=== PATIENT | female | born 1955 | race Caucasian/White ===

== ENCOUNTER 2022-02-26 14:28 | Outpatient (CLI) | payer MEDICARE, SELFPAY ==
--- NOTE | ~2022-02-26 | XR_ITS ---
EXAM: XR hip RT 2V w AP pelvis HISTORY: M25.559 - PAIN RIGHT HIPX 3 YRS, NO KNOWN INJURY COMPARISON: None available FINDINGS: Decreased mineralization. Severe lower lumbar degenerative change. Possible injection gran ulomas project over the right abdomen. Left pelvic surgical clips. Multiple soft tissue anchors proje ct over the lower abdomen. Severe superior joint space narrowing and subchondral sclerosis. Mild rosa ral head remodeling. Hip joint osteophytosis. Similar but moderate changes in the left hip. IMPRESSION: Severe right hip osteoarthritis. Reviewed, dictated and finalized at location K.
--- NOTE | ~2022-02-26 | XR_ITS ---
EXAMINATION: XR knee RT 3V DATE: 02/26/2022 14:53 INDICATION: Right knee pain. TECHNIQUE: 3 views of right knee were obtained. COMPARISON: None. FINDINGS: Bone alignment is normal. No fracture. There is mild tricompartmental osteoarthritis. No kn ee joint effusion. IMPRESSION: 1. Mild right knee osteoarthritis. Reviewed, dictated and finalized at location A.
== END 2022-02-26 14:29 | disposition home or self-care (01) ==
PROVIDERS: PCP Family Medicine; Visit Provider Family Medicine
DX: M17.11 Unilateral primary osteoarthritis, right knee (principal); M16.11 Unilateral primary osteoarthritis, right hip
CPT/HCPCS: 73502; 73562

== ENCOUNTER 2022-04-26 11:39 | Outpatient (CLI) | payer MEDICARE, MEDICAID, SELFPAY ==
--- NOTE | ~2022-04-26 | US_ITS ---
EXAMINATION: US carotid duplex BI DATE: 04/26/2022 12:20 INDICATION: Bilateral carotid stenosis TECHNIQUE: Grayscale, color Doppler, and pulsed Doppler images of the cervical carotid arteries were obtained. The degree of vessel stenosis is placed in one of the following categories: normal, <50%, 5 0-69%, >=70% but less than near-occlusion, near-occlusion, or total occlusion. Note that percent sten osis relative to normal distal artery lumen diameter is indirectly measured from velocity measurement s as described by David, et al. Radiology 2003; 229:340-346. Notes: Normal: Peak systolic velocity <125 centimeters/sec and no plaque <50%. Peak systolic velocity <125 ( EDV <40; ICA/CCA PSV ratio <2.0; used these factors only a tandem lesions or low cardiac output or co ntralateral disease) 50-69 %: PSV 125-230 (EDV 40-100; ratio 2-4) >= 70% but less than near occlusion: PSV greater than 230 (EDV > 100; ratio> 4.0) Near Occlusion: PSV that is variable; markedly narrowed lumen Occlusion: Absent flow on color/spectral Doppler and no lumen on clifford scale. COMPARISON: None. FINDINGS: RIGHT: The right common carotid artery (CCA) peak systolic velocity (PSV) is 63 cm/s. No flow identified in the right internal carotid artery. The external carotid artery (ECA) PSV is 197 cm/s. There is antegr chad flow in the right vertebral artery. LEFT: The left CCA PSV is 91 cm/s. The left ICA PSV is 120 cm/s. The left ICA EDV is 36 cm/s. The left ICA/ CCA PSV ratio is 1.3. The ECA PSV is 134 cm/s. There is antegrade flow in the left vertebral artery. IMPRESSION: 1. No identifiable flow in the right internal carotid artery, consistent with occlusion. 2. Less than 50% stenosis in the left internal carotid artery by sonographic criteria. Reviewed, dictated and finalized at location B. IMPRESSION: 1. No identifiable flow in the right internal carotid artery, consistent with o cclusion. 2. Less than 50% stenosis in the left internal carotid artery by sonographic cr iteria.
== END 2022-04-26 11:40 | disposition home or self-care (01) ==
PROVIDERS: PCP Family Medicine; Visit Provider Internal Medicine Cardiovascular Disease
DX: I65.23 Occlusion and stenosis of bilateral carotid arteries (principal)
CPT/HCPCS: 93880

== ENCOUNTER 2022-06-03 15:20 | Outpatient (CLI) | payer MEDICARE, MEDICAID, SELFPAY ==
--- NOTE | ~2022-06-03 | MM_ITS ---
EXAMINATION: MM screening judith BI w veronika HISTORY: Screening TECHNIQUE: Craniocaudal and mediolateral oblique 3-D tomosynthesis images were obtained and synthetic 2-D images were generated. CAD analysis was submitted and interpreted. COMPARISON: No prior mammogram is available for comparison at this institution. BREAST PARENCHYMAL COMPOSITION: There are scattered areas of fibroglandular density. FINDINGS: There is no evidence of suspicious mass, calcification, or architectural distortion to sugg est malignancy in either breast. There has been no suspicious interval change. IMPRESSION: 1. No mammographic evidence of malignancy. 2. Recommend routine screening mammography in one year. BI-RADS Category 1: Negative Reviewed, dictated and finalized at location A.
== END 2022-06-03 15:21 | disposition home or self-care (01) ==
LOC: ANHIMG 15:22
PROVIDERS: PCP Family Medicine; Visit Provider Family Medicine
DX: Z12.31 Encounter for screening mammogram for malignant neoplasm of breast (principal)
CPT/HCPCS: 77063; 77067

== ENCOUNTER 2022-07-02 14:09 | Outpatient (CLI) | payer MEDICARE, MEDICAID, SELFPAY ==
--- NOTE | ~2022-07-02 | XR_ITS ---
EXAMINATION: XR lumbar spine 2-3V DATE: 07/02/2022 14:29 INDICATION: Low back pain TECHNIQUE: Anteroposterior and lateral views of the lumbar spine, and cone-down lateral view of the l umbosacral junction were obtained. COMPARISON: None. FINDINGS: There is severe loss of intervertebral disc space height throughout the lumbar spine. Bone alignment is normal. There is no fracture. The vertebral body heights are maintained. Degenerative os teophytes project from the anterior endplates of multiple vertebral bodies. There is severe facet ost eoarthritis of the lower lumbar spine. Changes of mesh ventral hernia repair are noted. Surgical clip s and a surgical anastomosis are noted in the left pelvis. There is advanced osteoarthritis of the ri ght hip and moderate osteoarthritis of the left hip. IMPRESSION: 1. Severe lumbar spondylosis. Reviewed, dictated and finalized at location A.
== END 2022-07-02 14:10 | disposition home or self-care (01) ==
LOC: ANHIMG 14:13
PROVIDERS: PCP Family Medicine; Visit Provider Physician Assistant
DX: M47.896 Other spondylosis, lumbar region (principal)
CPT/HCPCS: 72100

== ENCOUNTER 2022-07-08 10:41 | Outpatient (CLI) | payer MEDICARE, MEDICAID, SELFPAY ==
[2022-07-08 11:20] LABS: Basophils Percent Auto 0.5 % (0.2-1.2); Eosinophils Absolute Auto 0.3 K/mm3 (0-0.3); Eosinophils Percent Auto 3.2 % (0-4.4); Hematocrit 39.6 % (37.0-47.0); Hemoglobin 12.6 g/dL (12.0-15.0); Immature Granulocyte Absolute 0.02 K/mm3 (0.00-0.031); Immature Granulocyte Percent A 0.2 % (0-0.5); Lymphocytes Absolute Auto 2.51 K/mm3 (0.9-3.2); Lymphocytes Percent Auto 30.6 % (18.3-44.2); Mean Corpuscular HGB Conc 31.8 g/dl (32-36); Mean Corpuscular Hemoglobin 31.1 pg (26-34); Mean Corpuscular Volume 97.8 fl (80-100); Mean Platelet Volume 8.6 fl (7.4-10.4); Monocytes Absolute Auto 0.5 K/mm3 (0.1-0.6); Monocytes Percent Auto 5.7 % (2.6-8.5); Neutrophils Absolute Auto 4.9 K/mm3 (1.3-6.7); Neutrophils Percent Auto 59.8 % (45.5-73.1); Platelet Count Result 303 k/mm3 (150-375); Red Blood Count 4.05 M/mm3 (4.2-5.4); Red Cell Distribution Width 13.2 % (11.5-14.5); White Blood Count 8.2 K/mm3 (4.5-10.0)
[2022-07-08 11:39] LABS: Alanine Aminotransferase 15 U/L (6-35); Albumin Level 4.2 g/dL (3.5-5.1); Alkaline Phosphatase 126 U/L (38-126); Anion Gap 10 mmol/L (8-16); Aspartate Amino Transferase 25 U/L (14-36); Bilirubin,Total 0.5 mg/dL (0.2-1.3); Blood Urea Nitrogen 15 mg/dL (7-17); Calcium 9.1 mg/dL (8.4-10.2); Carbon Dioxide 22 mmol/L (22-30); Chloride 102 mmol/L (98-107); Cholesterol 147 mg/dL (0-200); Estimated Glomerular Filt Rate > 60; Glucose 85 mg/dL (65-110); HDL Direct 66 mg/dL; Potassium 4.4 mmol/L (3.4-5.0); Sodium 134 mmol/L (137-145); Triglycerides 96 mg/dL (<150)
[2022-07-08 11:50] LABS: LDL Cholesterol Direct 42 mg/dL
== END 2022-07-08 10:42 | disposition home or self-care (01) ==
PROVIDERS: PCP Family Medicine; Visit Provider Physician Assistant
DX: E78.5 Hyperlipidemia, unspecified (principal); I10 Essential (primary) hypertension; R73.09 Other abnormal glucose; Z68.41 Body mass index [BMI] 40.0-44.9, adult
CPT/HCPCS: 36415; 80053; 80061; 85025

== ENCOUNTER 2022-08-13 00:17 | Day surgery (SDC) | payer MEDICARE, MEDICAID, SELFPAY ==
[2022-07-31 15:00] VITALS: BMI 43.1
[2022-08-13 10:17] VITALS: BP 112/66; PULSE 77; RESP 20; TEMP 36.3; O2SAT 98; BMI 42.9
[2022-08-13] MEDS: LACTATED RINGERS 1,000 ML 150 ML IV CONT (10:51)
--- NOTE | 2022-08-13 11:02 | WPDANESEPPF ---
Anes - Initial Pre Proc Eval Procedure: Operation Date: 08/13/22 11:00 Proposed Procedures p Screening Colonoscopy - Sunny Barnett MD Date/Time: 08/13/22 11:02 Surgeon: Sunny Barnett MD Pre Op Diagnosis: hx colon polyps Patient Data Age: 67 Gender: F Height: 1.57 m Weight: 106.4 kg Last Vital Signs Temp 97.4 F L 08/13/22 10:17 Pulse 77 08/13/22 10:17 Resp 20 08/13/22 10:17 BP 112/66 08/13/22 10:17 Pulse Ox 98 08/13/22 10:17 O2 Del Method Room Air 08/13/22 10:17 Allergies Allergy/AdvReac Type Severity Reaction Status Date / Time morphine AdvReac Intermediate Rapid Verified 08/13/22 10:16 heart rate Home Medications Medication Instructions Recorded Confirmed Type atorvastatin 80 mg tablet 80 mg PO DAILY #90 tabs 08/16/21 08/13/22 Rx bupropion HCl 150 mg 24 hr tablet, 150 mg PO QAM #90 tabs 08/16/21 08/13/22 Rx extended release cetirizine 10 mg tablet (All Day 10 mg PO DAILY PRN Allergy Symptoms 08/16/21 08/13/22 History Allergy (cetirizine)) lisinopril 20 mg tablet 20 mg PO DAILY #90 tabs 08/16/21 08/13/22 Rx albuterol sulfate 90 mcg/actuation 2 inh inhalation Q4H PRN shortness 02/26/22 08/13/22 Rx aerosol inhaler of breath or wheezing 3 months #8.5 grams clopidogrel 75 mg tablet 75 mg PO DAILY #90 tabs 02/26/22 08/13/22 Rx ipratropium 0.5 mg-albuterol 3 mg 3 ml inhalation Q6H PRN shortness 02/26/22 08/13/22 Rx (2.5 mg base)/3 mL nebulization of breath #180 mL soln sertraline 100 mg tablet 100 mg PO DAILY #90 tabs 02/26/22 08/13/22 Rx tramadol 50 mg tablet 50 mg PO Q6H PRN pain #60 tabs 07/02/22 08/13/22 Rx umeclidinium 62.5 mcg-vilanterol See Rx Instructions .Route 07/12/22 08/13/22 Rx 25 mcg/actuation powdr for .COMPLEX #180 ea inhalation (Anoro Ellipta) Patient hx anesthesia problems: none Family hx anesthesia problems: none Results Review: All pre-operative results and documents have been reviewed as part of the pre-operative evaluation. [facility] Past Medical History Medical History Alcohol abuse Benign essential HTN Chronic pain Colon polyps COPD (chronic obstructive pulmonary disease) Diverticular disease of intestine with perforation and abscess LIAN (generalized anxiety disorder) Hyperlipidemia IBS (irritable bowel syndrome) Pollen allergies Tobacco use Surgical History Surgical History H/O Spinal surgery History of cholecystectomy History of colon resection at age 52 History of lumpectomy of both breasts x2 Family History Family History Father Depression Mother Depression Skin cancer (melanoma) Sibling Depression Social History Social History (Updated 07/02/22 @ 13:15 by Stephanie Boyd) Social History: Single Smoking packs per day: 0.5 Smoking cigarettes per day: 10.0 Years smoked: 44 Smoking pack-years: 22.00 Smoking status: Current every day smoker Tobacco type: cigarettes Second hand tobacco smoke exposure: Yes Smoking end date: 11/17/21 Additional smoking assessment comments: Pt still smokes. Alcohol intake: current Drinks per week: 7 Alcohol use details: occasionally Substance use: never Substance use type: does not use Living arrangements: alone Gender identity (if verbalized by the patient): Female Sexual Orientation (if Verbalized by the Patient): Straight or Heterosexual Spiritual care concerns: No Anes - Eval Final PreProcedure Day of Procedure 08/13/22 11:02 Patient weight: morbidly obese Heart: regular rate and rhythm Lungs: clear to auscultation Airway: Mallampati scale class III Neurological: alert and oriented Last oral intake: >/= 8 hours ASA classification: IV Emergent: no Anesthetic plan: proceed Anesthesia type and monitoring: general GIVS and standard monitoring Results Review: All pre-operative re
--- NOTE | 2022-08-13 11:10 | PM.HPGS ---
History of Present Illness History of Present Illness Consent: Risks, benefits, and alternatives have been discussed and questions answered. Patient agrees to proceed with procedure. Chief complaint: hx colon polyps Narrative: Nicolasa Campo is a 67 year old female with colon polyps, last colonoscopy 5 years ago Review of Systems Constitutional: Constitutional: Denies headache(s) and Denies weakness Eyes: Eyes: Denies blurry vision ENT: Reports Normal hearing present, Denies headache(s) and Denies neck pain Cardiovascular: Cardiovascular: Denies chest pain and Denies dyspnea Respiratory: Respiratory: Denies dyspnea Gastrointestinal: Gastrointestinal: Reports no additional gastrointestinal complaints Genitourinary: Genitourinary: Denies dysuria Musculoskeletal: Musculoskeletal: Denies neck pain Integumentary/Breasts: Skin/Breast: Denies dry skin Neurologic: Reports Normal hearing present, Denies headache(s) and Denies weakness Psychiatric: Psychiatric: Denies anxiety Endocrine: Endocrine: Denies change in body appearance Hematologic/Lymphatic: Hematologic/Lymphatic: Denies easy bleeding Allergic/Immunologic: Allergic/Immunologic: Denies urticaria PMFSH Past Medical History Medical History Alcohol abuse Benign essential HTN Chronic pain Colon polyps COPD (chronic obstructive pulmonary disease) Diverticular disease of intestine with perforation and abscess LIAN (generalized anxiety disorder) Hyperlipidemia IBS (irritable bowel syndrome) Pollen allergies Tobacco use Surgical History Surgical History H/O Spinal surgery History of cholecystectomy History of colon resection at age 52 History of lumpectomy of both breasts x2 Family History Family History Father Depression Mother Depression Skin cancer (melanoma) Sibling Depression Social History Social History (Updated 07/02/22 @ 13:15 by Stephanie Boyd) Social History: Single Smoking packs per day: 0.5 Smoking cigarettes per day: 10.0 Years smoked: 44 Smoking pack-years: 22.00 Smoking status: Current every day smoker Tobacco type: cigarettes Second hand tobacco smoke exposure: Yes Smoking end date: 11/17/21 Additional smoking assessment comments: Pt still smokes. Alcohol intake: current Drinks per week: 7 Alcohol use details: occasionally Substance use: never Substance use type: does not use Living arrangements: alone Gender identity (if verbalized by the patient): Female Sexual Orientation (if Verbalized by the Patient): Straight or Heterosexual Spiritual care concerns: No Meds Home Medications and Allergies Home Medications Medication Instructions Recorded Confirmed Type atorvastatin 80 mg tablet 80 mg PO DAILY #90 tabs 08/16/21 08/13/22 Rx bupropion HCl 150 mg 24 hr tablet, 150 mg PO QAM #90 tabs 08/16/21 08/13/22 Rx extended release cetirizine 10 mg tablet (All Day 10 mg PO DAILY PRN Allergy Symptoms 08/16/21 08/13/22 History Allergy (cetirizine)) lisinopril 20 mg tablet 20 mg PO DAILY #90 tabs 08/16/21 08/13/22 Rx albuterol sulfate 90 mcg/actuation 2 inh inhalation Q4H PRN shortness 02/26/22 08/13/22 Rx aerosol inhaler of breath or wheezing 3 months #8.5 grams clopidogrel 75 mg tablet 75 mg PO DAILY #90 tabs 02/26/22 08/13/22 Rx ipratropium 0.5 mg-albuterol 3 mg 3 ml inhalation Q6H PRN shortness 02/26/22 08/13/22 Rx (2.5 mg base)/3 mL nebulization of breath #180 mL soln sertraline 100 mg tablet 100 mg PO DAILY #90 tabs 02/26/22 08/13/22 Rx tramadol 50 mg tablet 50 mg PO Q6H PRN pain #60 tabs 07/02/22 08/13/22 Rx umeclidinium 62.5 mcg-vilanterol See Rx Instructions .Route 07/12/22 08/13/22 Rx 25 mcg/actuation powdr for .COMPLEX #180 ea inhalation (Anoro Ellipta) Allergies Allergy/AdvReac Type Severity Reaction Status Date / Time morphine
[2022-08-13 11:32] VITALS: BP 103/52; PULSE 66; RESP 26; O2SAT 100
[2022-08-13 11:42] VITALS: BP 128/56; PULSE 68; RESP 21; O2SAT 100
[2022-08-13 11:52] VITALS: BP 128/56; PULSE 67; RESP 17; O2SAT 100
== END 2022-08-13 12:01 | disposition home or self-care (01) ==
PROVIDERS: PCP Family Medicine; Visit Provider Internal Medicine Gastroenterology
PROC: 0DJD8ZZ Inspection of Lower Intestinal Tract, Via Natural or Artificial Opening Endoscopic (ICD-10-PCS; CPT 45378; principal; 2022-08-13 11:00)
DX: Z12.11 Encounter for screening for malignant neoplasm of colon (principal); Z86.010 Personal history of colon polyps; K64.8 Other hemorrhoids; Z98.0 Intestinal bypass and anastomosis status; K63.89 Other specified diseases of intestine; I10 Essential (primary) hypertension; J44.9 Chronic obstructive pulmonary disease, unspecified; F41.1 Generalized anxiety disorder; E78.5 Hyperlipidemia, unspecified; K58.9 Irritable bowel syndrome, unspecified; Z90.49 Acquired absence of other specified parts of digestive tract; F17.210 Nicotine dependence, cigarettes, uncomplicated; Z79.51 Long term (current) use of inhaled steroids; E66.01 Morbid (severe) obesity due to excess calories; Z68.41 Body mass index [BMI] 40.0-44.9, adult
CPT/HCPCS: G0105; J2704; J7120

== ENCOUNTER 2022-08-29 12:41 | Outpatient (CLI) | payer MEDICARE, MEDICAID, SELFPAY ==
--- NOTE | ~2022-08-29 | CT_ITS ---
EXAMINATION: CT lung screening DATE: 08/29/2022 13:03 INDICATION: ct lung screening TECHNIQUE: Computed tomography (CT) of the chest was performed without intravenous contrast. Addition al 3D reconstructions utilizing coronal maximum intensity projection (MIP) were performed. Automated exposure control and iterative reconstruction technique were employed. The dose-length product was 39 4.58 mGy-cm. COMPARISON: None FINDINGS: No suspicious pulmonary nodules, pneumonia, pulmonary edema or pleural effusion. Heart size is normal . Atherosclerotic coronary artery calcification. Aortic valve calcification. Thoracic aorta is normal in caliber. No pathologically enlarged abdominal or pelvic lymphadenopathy. Mild S-shaped curvature of the thoracic spine with severe spondylosis. IMPRESSION: 1. Lung-RADS category 1: Negative. Continue annual screening with noncontrast low-dose chest CT in 12 months. Reviewed, dictated and finalized at location B. IMPRESSION: 1. Lung-RADS category 1: Negative. Continue annual screening with noncontrast l ow-dose chest CT in 12 months.
== END 2022-08-29 12:42 | disposition home or self-care (01) ==
PROVIDERS: PCP Family Medicine; Visit Provider Nurse Practitioner Family
DX: Z12.2 Encounter for screening for malignant neoplasm of respiratory organs (principal); F17.210 Nicotine dependence, cigarettes, uncomplicated
CPT/HCPCS: 71271

== ENCOUNTER 2022-09-19 13:37 | Outpatient (CLI) | payer MEDICARE, MEDICAID, SELFPAY ==
--- NOTE | 2022-09-20 11:37 | P.PCNPFT_ITS ---
PFT Procedure Performed PFT Procedure Performed Spirometry with Pre/Post Bronchodilator Plethysmography (Lung Vol) Diffusing Cap (DLCO) Flow Vol Loop PFT Interpretation Lung volumes were measured with the body plethysmography method. The diminished expiratory reserve volume is due to obesity. The remaining lung volumes are unremarkable. Spirometry showed diminished expiratory flow rates and a diminished FEV1 to FVC ratio 64%, indicative of obstructive airway disease. Following administration of a bronchodilator there was no significant increase in expiratory flow rates. Lung diffusion capacity is moderately reduced at 59% predicted. The flow volume loop is consistent with mild obstructive airway d isease. Impression: Mild obstructive airway disease with no response to bronchodilators on this testing. Moderately reduced lung diffusion capacity.
== END 2022-09-19 13:38 | disposition home or self-care (01) ==
LOC: ANHPFT 13:38
PROVIDERS: PCP Family Medicine; Visit Provider Nurse Practitioner Family
DX: J44.9 Chronic obstructive pulmonary disease, unspecified (principal); R94.2 Abnormal results of pulmonary function studies
CPT/HCPCS: 94060; 94726; 94729

== ENCOUNTER 2022-12-05 11:41 | Outpatient (CLI) | payer MEDICARE, MEDICAID, SELFPAY ==
[2022-12-05 12:25] LABS: Alanine Aminotransferase 24 U/L (6-35); Albumin Level 4.6 g/dL (3.5-5.1); Alkaline Phosphatase 127 U/L (38-126); Anion Gap 8 mmol/L (8-16); Aspartate Amino Transferase 25 U/L (14-36); Bilirubin,Total 0.4 mg/dL (0.2-1.3); Blood Urea Nitrogen 21 mg/dL (7-17); Calcium 8.9 mg/dL (8.4-10.2); Carbon Dioxide 27 mmol/L (22-30); Chloride 98 mmol/L (98-107); Cholesterol 202 mg/dL (0-200); Estimated Glomerular Filt Rate > 60; Glucose 66 mg/dL (65-110); HDL Direct 90 mg/dL; Potassium 4.3 mmol/L (3.4-5.0); Sodium 133 mmol/L (137-145); Triglycerides 92 mg/dL (<150)
[2022-12-05 12:36] LABS: LDL Cholesterol Direct 73 mg/dL
== END 2022-12-05 11:42 | disposition home or self-care (01) ==
LOC: ANHLAB 11:43
PROVIDERS: PCP Family Medicine; Visit Provider Family Medicine
DX: E78.5 Hyperlipidemia, unspecified (principal); I10 Essential (primary) hypertension
CPT/HCPCS: 36415; 80053; 80061

== ENCOUNTER 2023-02-19 10:04 | Outpatient (CLI) | payer MEDICARE, MEDICAID, SELFPAY ==
--- NOTE | 2023-02-19 11:00 | NEURO_ITS ---
Impression: # Complains of lower back pain with numbness of lower extremities. # Normal nerve conduction study except absent right sural nerve response. # Needle/EMG exam revealed decreased motor unit potentials but no fibs, myotonia or fasciculations. # Clinical correlation recommended,possibility of higher involvement likely. Motor Nerve Conduction Lower Extremities Peroneal Nerve Conduction Velocity (m/sec) Terminal Latency (msec) Response Voltage(mV) Popliteal space-Ankle Ankle Extensor Dig Brevis Popliteal space Ankle Right 43 3.0 2 2 Left 46 3.8 2 2 Tibial Nerve Conduction Velocity (m/sec) Terminal Latency (msec) Response Voltage(mV) Popliteal space-Ankle Ankle-Extensor Dig Brevis Popliteal space Ankle Right 42 3.8 5 8 Left 43 3.8 2 3 F-waves Peroneal Nerve (ms) Tibial Nerve (ms) Right 48.4 50.0 Left 49.1 49.3 Sensory Nerve Conduction Lower Extremities Sural Nerve Stimulation Terminal Latency (msec) Ankle Response Voltage (uV) Ankle Response Velocity (m/sec) Right NR NR NR Left 3.9 6 41 Superficial Peroneal Nerve Stimulation Terminal Latency (msec) Ankle Response Voltage (uV) Ankle Response Velocity (m/sec) Right 3.8 5 42 Left 3.7 8 43 Left Right Muscles Examined Fibrillation Fasciculation Scarcity Voltage Duration Left Right Left Right Left Right Left Right Left Right X X Ant Tibialis X X Gastroc X X Fibularis Long X X Flex Dig Long X X Ext Dig Brev Abd Hallucis Quadriceps Paraspinals MTDD
== END 2023-02-19 10:05 | disposition home or self-care (01) ==
PROVIDERS: PCP Family Medicine; Visit Provider Neurological Surgery
DX: M54.10 Radiculopathy, site unspecified (principal)
CPT/HCPCS: 95886; 95910

== ENCOUNTER 2023-04-29 13:09 | Outpatient (CLI) | payer MEDICARE, MEDICAID, SELFPAY ==
--- NOTE | ~2023-04-29 | US_ITS ---
EXAMINATION: US carotid duplex BI DATE: 04/29/2023 13:47 INDICATION: Bilateral carotid artery stenosis TECHNIQUE: Grayscale, color Doppler, and pulsed Doppler images of the cervical carotid arteries were obtained. The degree of vessel stenosis is placed in one of the following categories: normal, <50%, 5 0-69%, >=70% but less than near-occlusion, near-occlusion, or total occlusion. Note that percent sten osis relative to normal distal artery lumen diameter is indirectly measured from velocity measurement s as described by David, et al. Radiology 2003; 229:340-346. Notes: Normal: Peak systolic velocity <125 centimeters/sec and no plaque <50%. Peak systolic velocity <125 ( EDV <40; ICA/CCA PSV ratio <2.0; used these factors only a tandem lesions or low cardiac output or co ntralateral disease) 50-69 %: PSV 125-230 (EDV 40-100; ratio 2-4) >= 70% but less than near occlusion: PSV greater than 230 (EDV > 100; ratio> 4.0) Near Occlusion: PSV that is variable; markedly narrowed lumen Occlusion: Absent flow on color/spectral Doppler and no lumen on clifford scale. COMPARISON: Ultrasound dated 04/26/2022. FINDINGS: RIGHT: The right common carotid artery (CCA) peak systolic velocity (PSV) is 47 cm/s. The right internal car otid artery is occluded without evidence for flow. The external carotid artery (ECA) PSV is 1:15 cm/s . There is antegrade flow in the right vertebral artery. LEFT: The left CCA PSV is 94 cm/s. The left ICA PSV is 125 cm/s. The left ICA EDV is 35 cm/s. The left ICA/ CCA PSV ratio is 1.3. The ECA PSV is 70 cm/s. There is antegrade flow in the left vertebral artery. IMPRESSION: 1. Occluded right internal carotid artery. 2. Less than 50% stenosis in the left internal carotid artery by sonographic criteria. Reviewed, dictated and finalized at location L. IMPRESSION: 1. Occluded right internal carotid artery. 2. Less than 50% stenosis in the left internal carotid artery by sonographic cr iteria.
== END 2023-04-29 13:10 | disposition home or self-care (01) ==
LOC: ANHIMG 13:10
PROVIDERS: PCP Family Medicine; Visit Provider Internal Medicine Cardiovascular Disease
DX: I65.23 Occlusion and stenosis of bilateral carotid arteries (principal)
CPT/HCPCS: 93880

== ENCOUNTER 2023-05-13 11:05 | Outpatient (CLI) | payer MEDICARE, MEDICAID, SELFPAY ==
[2023-05-13 11:55] LABS: Hemoglobin 12.4 g/dL (12.0-15.0); Mean Corpuscular HGB Conc 33.5 g/dl (32-36); Mean Corpuscular Hemoglobin 30.9 pg (26-34); Mean Corpuscular Volume 92.3 fl (80-100); Platelet Count Result 317 k/mm3 (150-375); Red Blood Count 4.01 M/mm3 (4.2-5.4); Red Cell Distribution Width 13.2 % (11.5-14.5); White Blood Count 10.1 K/mm3 (4.5-10.0)
[2023-05-13 12:06] LABS: Alanine Aminotransferase 23 U/L (6-35); Albumin Level 4.3 g/dL (3.5-5.1); Alkaline Phosphatase 85 U/L (38-126); Anion Gap 6 mmol/L (8-16); Aspartate Amino Transferase 23 U/L (14-36); Bilirubin,Total 0.6 mg/dL (0.2-1.3); Blood Urea Nitrogen 17 mg/dL (7-17); Calcium 9.2 mg/dL (8.4-10.2); Carbon Dioxide 27 mmol/L (22-30); Chloride 96 mmol/L (98-107); Cholesterol 223 mg/dL (0-200); Estimated Glomerular Filt Rate > 60; Glucose 88 mg/dL (65-110); HDL Direct 86 mg/dL; Potassium 4.8 mmol/L (3.4-5.0); Sodium 129 mmol/L (137-145); Triglycerides 76 mg/dL (<150)
[2023-05-13 12:17] LABS: LDL Cholesterol Direct 102 mg/dL
== END 2023-05-13 11:06 | disposition home or self-care (01) ==
PROVIDERS: PCP Family Medicine; Visit Provider Family Medicine
DX: E66.9 Obesity, unspecified (principal); E78.5 Hyperlipidemia, unspecified; I10 Essential (primary) hypertension; F41.1 Generalized anxiety disorder
CPT/HCPCS: 36415; 80053; 80061; 84443; 85027

== ENCOUNTER 2023-05-27 10:34 | Outpatient (CLI) | payer MEDICARE, MEDICAID, SELFPAY ==
[2023-05-27 11:54] LABS: Anion Gap 6 mmol/L (8-16); Blood Urea Nitrogen 15 mg/dL (7-17); Calcium 9.1 mg/dL (8.4-10.2); Carbon Dioxide 26 mmol/L (22-30); Chloride 97 mmol/L (98-107); Estimated Glomerular Filt Rate > 60; Glucose 85 mg/dL (65-110); Potassium 4.8 mmol/L (3.4-5.0); Sodium 129 mmol/L (137-145)
== END 2023-05-27 10:35 | disposition home or self-care (01) ==
PROVIDERS: PCP Family Medicine; Visit Provider Nurse Practitioner
DX: E87.1 Hypo-osmolality and hyponatremia (principal)
CPT/HCPCS: 36415; 80048

== ENCOUNTER 2023-06-09 10:44 | Outpatient (CLI) | payer MEDICARE, MEDICAID, SELFPAY ==
[2023-06-09 12:07] LABS: Anion Gap 11 mmol/L (8-16); Blood Urea Nitrogen 16 mg/dL (7-17); Carbon Dioxide 23 mmol/L (22-30); Chloride 96 mmol/L (98-107); Estimated Glomerular Filt Rate > 60; Glucose 84 mg/dL (65-110); Potassium 4.4 mmol/L (3.4-5.0); Sodium 130 mmol/L (137-145)
== END 2023-06-09 10:45 | disposition home or self-care (01) ==
PROVIDERS: PCP Family Medicine; Visit Provider Nurse Practitioner
DX: E87.1 Hypo-osmolality and hyponatremia (principal)
CPT/HCPCS: 36415; 80048

== ENCOUNTER 2023-09-08 13:02 | Outpatient (CLI) | payer MEDICARE, MEDICAID, SELFPAY ==
--- NOTE | ~2023-09-08 | CT_ITS ---
CT Scan of the Chest without Contrast: Clinical Indication: Lung cancer screening, personal history of nicotine dependence Technique: Contiguous sections were acquired throughout the chest without intravenous contrast. Dose reduction technique was used on this scan by utilizing automated exposure control and iterative recon struction technique. The dose-length product (DLP) was 157.69 mGy-cm. COMPARISON: 08/29/2022 Findings: There is no evidence of any significant mediastinal, hilar or axillary lymphadenopathy. There are ath erosclerotic calcifications of the aorta and coronary arteries. There is no evidence of pleural or pericardial effusion. The lungs are clear. No pulmonary nodules or infiltrates are noted. Images through the upper abdomen reveal no abnormalities. Impression: Lung RADS 1: Negative. 12 month follow-up screening CT advised. Reviewed, dictated and finalized at [facility]. Impression: Lung RADS 1: Negative. 12 month follow-up screening CT advised.
== END 2023-09-08 13:03 | disposition home or self-care (01) ==
PROVIDERS: PCP Family Medicine; Visit Provider Nurse Practitioner Family
DX: Z12.2 Encounter for screening for malignant neoplasm of respiratory organs (principal); Z87.891 Personal history of nicotine dependence
CPT/HCPCS: 71271

== ENCOUNTER 2023-11-19 15:04 | Outpatient (CLI) | payer MEDICARE, MEDICAID, SELFPAY ==
[2023-11-19 16:10] LABS: Influenza A QL RT-PCR Negative (Negative); Influenza B QL RT-PCR Negative (Negative); RSV RNA, RT-PCR Negative (Negative); SARS-CoV-2 RNA PCR Negative (Negative)
== END 2023-11-19 15:05 | disposition home or self-care (01) ==
LOC: ANHLAB 15:06
PROVIDERS: PCP Family Medicine; Visit Provider Nurse Practitioner Family
DX: R06.00 Dyspnea, unspecified (principal); R05.9 Cough, unspecified; R50.9 Fever, unspecified; Z20.822 Contact with and (suspected) exposure to COVID-19
CPT/HCPCS: 87637

== ENCOUNTER 2023-12-11 12:29 | Observation (INO) | payer MEDICARE, MEDICAID, SELFPAY ==
[2023-12-11] VITALS (16 sets, daily range): BP systolic 105–145; BP diastolic 40–79; PULSE 70–80; RESP 17–25; TEMP 36.1–36.6; O2SAT 95–100; BMI 36.1
--- NOTE | ~2023-12-11 | MR_ITS ---
MRI of the brain Clinical History: Subacute infarct Technique: Axial and sagittal T1-weighted images were acquired. These were followed by axial T2-weigh jamar, diffusion weighted, gradient, and FLAIR images. Following intravenous administration of 17 cc Mu ltiHance gadolinium, T1-weighted fat-sat imaging was performed in the axial and coronal planes. Findings: There is no acute infarct, intracranial hemorrhage, or mass lesion. There are moderate physician primary care sports medicine yanely microvascular ischemic changes in the periventricular white matter bilaterally. Ventricles and subarachnoid spaces are mildly dilated. Orbits are unremarkable. Paranasal sinuses and mastoid air cells are clear. Major intracranial flow voids appear intact. Sagittal midline structures are intact. No abnormal postcontrast enhancement identified. IMPRESSION: No acute/subacute infarct, intracranial hemorrhage, or mass lesion identified. Moderate chronic white matter ischemic changes, and mild generalized atrophy. Reviewed, dictated and finalized at [facility]. S COUNSELOR
--- NOTE | ~2023-12-11 | CT_ITS ---
EXAMINATION: CTA brain carotid DATE: 12/11/2023 15:04 INDICATION: Dizziness. TECHNIQUE: Computed tomographic angiography (CTA) of the head was performed with 100 mL Omnipaque-350 intravenous contrast. CTA of the neck was performed with intravenous contrast. Automated exposure co ntrol and iterative reconstruction technique were employed. The dose-length product was 1089.80 mGy-c m. Maximum intensity projection and volume rendered 3D-reconstructions were created by the technologi st on a separate workstation. COMPARISON: Head CT 12/11/2023, ultrasound 04/26/2022 FINDINGS: HEAD CTA: There are scattered areas of low attenuation in the cerebral white matter. There is an infa rct involving the right caudate nucleus. There is no intracranial hemorrhage or abnormal mass lesion. The ventricles are normal in size. There is mild mucosal thickening in the paranasal sinuses. The or bits are normal. The mastoid air cells are normal. The vertebral arteries are codominant. There is no significant stenosis of basilar artery or the posterior cerebral arteries. There is total occlusion of cervical right internal carotid artery. There is no significant stenosis of intracranial left inte rnal carotid artery. Anterior communicating artery is normal. There is no significant stenosis of the anterior or middle cerebral arteries. Right posterior communicating artery is normal. A left posteri or communicating artery is not identified. There is no aneurysm. NECK CTA: There is mild emphysema. There is nodules in the lungs measuring up to 3 mm, likely benign. There are no pathologically enlarged lymph nodes. There is no significant stenosis of the vertebral arteries. There is severe stenosis of distal right common carotid artery. There is plaque in proximal left internal carotid artery. There is 0% stenosis of the proximal left internal carotid artery rela tive to normal distal artery lumen diameter (NASCET criteria). There is severe cervical and thoracic spondylosis. IMPRESSION: 1. Age-indeterminate infarct in right caudate nucleus. 2. Mild nonspecific cerebral white matter disease, which likely represents chronic small vessel ische armando disease. 3. Chronic total occlusion of cervical right internal carotid artery. 4. 0% stenosis of the proximal left internal carotid artery relative to normal distal artery lumen di ameter (NASCET criteria). Reviewed, dictated and finalized at location [facility]. NING DIVISION SUPERINTENDENT IMPRESSION: 1. Age-indeterminate infarct in right caudate nucleus. 2. Mild nonspecific cerebral white matter disease, which likely represents hammer mill operator yanely small vessel ischemic disease. 3. Chronic total occlusion of cervical right internal carotid artery. 4. 0% stenosis of the proximal left internal carotid artery relative to normal distal artery lumen diameter (NASCET criteria).
--- NOTE | ~2023-12-11 | CT_ITS ---
CT head without contrast Indication: Dizziness Technique: Serial scans were obtained through the brain without the administration of contrast. Dose reduction technique was used on this scan by utilizing automated exposure control and iterative recon struction technique. The dose-length product (DLP) was 605.33 mGy-cm. Findings: There is no evidence of intracranial hemorrhage, mass lesion, or acute infarct. The ventri cles and subarachnoid spaces are dilated, consistent with mild atrophy. Focal hypodensity at the ante rior limb of the right internal capsule region could reflect chronic microvascular ischemic change ve rsus possibly subacute infarct. There are additional minimal background chronic microvascular ischemi c changes. There is no evidence of edema, mass effect or midline shift. The visualized paranasal si nuses and mastoid air cells are clear. Impression: Questional subacute focal infarct in the anterior limb of the right internal capsule versus chronic m icrovascular ischemic change. Correlate with patient's symptomatology. Atrophy and chronic white matter changes, as above. Reviewed, dictated and finalized at location . TAL MARKETING SPECIALIST Impression: Questional subacute focal infarct in the anterior limb of the right internal ca psule versus chronic microvascular ischemic change. Correlate with patient's sy mptomatology. Atrophy and chronic white matter changes, as above.
--- NOTE | ~2023-12-11 | XR_ITS ---
Clinical Indication: Weakness PA and lateral views of the chest: Comparison: None Findings: The lungs are clear, without evidence of focal consolidation or pleural effusion. Cardiome diastinal silhouette is within normal limits. Bones and soft tissues are unremarkable. Impression: Normal chest. Reviewed, dictated and finalized at [facility]. ODIAL ENGINEER Impression: Normal chest.
--- NOTE | 2023-12-11 12:56 | ECG_ITS ---
Measurements Intervals Maxie Rate: 72 P: 60 FL: 184 QRS: 42 QRSD: 93 T: 27 QT: 390 QTc: 429 Interpretive Statements SINUS RHYTHM LOW QRS VOLTAGE IN PRECORDIAL LEADS BORDERLINE T WAVE ABNORMALITY- ANTERIOR LEADS BORDERLINE ECG NO PREVIOUS ECG AVAILABLE FOR COMPARISON Electronically Signed On 12-11-2023 13:18:39 [employer] by Regan Alas D.O.
[2023-12-11 13:16] LABS: Basophils Percent Auto 0.6 % (0.2-1.2); Eosinophils Absolute Auto 0.2 K/mm3 (0-0.3); Eosinophils Percent Auto 3.3 % (0-4.4); Hematocrit 37.3 % (37.0-47.0); Hemoglobin 12.1 g/dL (12.0-15.0); Immature Granulocyte Absolute 0.02 K/mm3 (0.00-0.031); Immature Granulocyte Percent A 0.4 % (0-0.5); Lymphocytes Absolute Auto 1.68 K/mm3 (0.9-3.2); Lymphocytes Percent Auto 34.4 % (18.3-44.2); Mean Corpuscular HGB Conc 32.4 g/dl (32-36); Mean Corpuscular Hemoglobin 30.9 pg (26-34); Mean Corpuscular Volume 95.2 fl (80-100); Mean Platelet Volume 8.2 fl (7.4-10.4); Monocytes Absolute Auto 0.5 K/mm3 (0.1-0.6); Monocytes Percent Auto 10.8 % (2.6-8.5); Neutrophils Absolute Auto 2.5 K/mm3 (1.3-6.7); Neutrophils Percent Auto 50.5 % (45.5-73.1); Platelet Count Result 286 k/mm3 (150-375); Red Blood Count 3.92 M/mm3 (4.2-5.4); Red Cell Distribution Width 13.4 % (11.5-14.5); White Blood Count 4.9 K/mm3 (4.5-10.0)
[2023-12-11 13:25] LABS: Ethanol < 10 mg/dL (<10)
[2023-12-11 13:26] LABS: Alanine Aminotransferase 17 U/L (6-35); Albumin Level 4.3 g/dL (3.5-5.1); Alkaline Phosphatase 82 U/L (38-126); Anion Gap 11 mmol/L (8-16); Aspartate Amino Transferase 27 U/L (14-36); Bilirubin,Total 0.5 mg/dL (0.2-1.3); Blood Urea Nitrogen 27 mg/dL (7-17); Calcium 9.4 mg/dL (8.4-10.2); Carbon Dioxide 23 mmol/L (22-30); Chloride 95 mmol/L (98-107); Estimated CRCL calculation 50 ml/min; Estimated Glomerular Filt Rate > 60; Glucose 63 mg/dL (65-110); Potassium 4.4 mmol/L (3.4-5.0); Sodium 129 mmol/L (137-145)
[2023-12-11 13:40] LABS: Appearance Urine Clear (Clear); Bacteria Urine None Seen /hpf; Bilirubin Urine Negative (Negative); Blood Urine Trace (Negative); Color Urine Yellow (Yellow); Glucose Urine UA Negative (Negative); Ketones Urine Negative (Negative); Leukocyte Esterase Ur Negative LEU/UL (Negative); Nitrate Urine Negative (Negative); Non Pathogenic Casts 0-2; Protein Urine Negative (Negative); RBC Urine 0-2 /hpf (0-2); Specific Grav Ur 1.009 (1.001-1.035); Squamous Epithelial Cell Urine None seen /hpf (Few); Urobilinogen Urine 0.2 mg/dL (<2.0); WBC Urine 0-5 /hpf; pH Urine 5.5 (5.0-9.0)
[2023-12-11 13:48] LABS: Add Urine Microscopic? YES
[2023-12-11 13:56] LABS: Amphetamine Screen Urine Negative (Negative); Barbiturate Screen Urine Negative (Negative); Benzodiazepines Screen Urine Negative (Negative); Cannabinoid Screen Urine Negative (Negative); Cocaine Screen Urine Negative (Negative); Methadone Screen Urine Negative (Negative); Opiate Screen Urine Negative (Negative); Phencyclidine Screen Urine Negative (Negative)
[2023-12-11 14:19] LABS: Glucose Point of Care 104 mg/dl (65-105)
--- NOTE | 2023-12-11 14:31 | ED.DIZZY ---
HPI - Dizziness General Chief Complaint: Dizziness <MARISOL Ledezma Last Filed: 12/11/23 17:17> Stated Complaint: dizzy <MARISOL Ledezma Last Filed: 12/11/23 17:17> Time Seen by Provider: 12/11/23 12:56 <Nohemi Recinos PA-C - Last Filed: 12/11/23 17:17> Source: patient <MARISOL Ledezma Last Filed: 12/11/23 17:17> Mode of arrival: ambulatory <MARISOL Ledezma Last Filed: 12/11/23 17:17> Limitations: no limitations <MARISOL Ledezma Last Filed: 12/11/23 17:17> History of Present Illness HPI Narrative: This is a 68 year old female that presents to the ER for dizziness that started a couple of hours prior to arrival. Reports dizziness and lightheadedness. She thought her blood sugar was maybe low. She tried eating and drinking, but this didn't fully resolve her symptoms which prompted her to be seen. Reports since her symptoms have now resolved. Denies vision changes, vomiting, numbness or weakness. <MARISOL Ledezma Last Filed: 12/11/23 17:17> Related Data Home Medications: Home Medications Medication Instructions Recorded Confirmed cetirizine 10 mg tablet (All Day 10 mg PO DAILY PRN Allergy Symptoms 08/16/21 10/07/23 Allergy (cetirizine)) <Nohemi Recinos PA-C - Last Filed: 12/11/23 17:17> Allergies/Adverse Reactions: Allergies Allergy/AdvReac Type Severity Reaction Status Date / Time morphine AdvReac Intermediate Rapid Verified 12/11/23 12:37 heart rate <MARISOL Ledezma Last Filed: 12/11/23 17:17> Review of Systems Review of Systems: CONSTITUTIONAL: Denies fever EYES: Denies visual changes CARDIOVASCULAR: Denies chest pain or edema. RESPIRATORY: Denies dyspnea. GASTROINTESTINAL: Denies vomiting NEUROLOGIC: Denies headache, numbness, or weakness. <MARISOL Ledezma Last Filed: 12/11/23 17:17> All systems reviewed & are unremarkable except as noted in HPI and below <Nohemi Recinos PA-C - Last Filed: 12/11/23 17:17> [facility] Past Medical History Medical History: Medical History Alcohol abuse Benign essential HTN Chronic pain Colon polyps COPD (chronic obstructive pulmonary disease) Diverticular disease of intestine with perforation and abscess LIAN (generalized anxiety disorder) Hyperlipidemia IBS (irritable bowel syndrome) Pollen allergies Tobacco use <Nohemi Recinos PA-C - Last Filed: 12/11/23 17:17> Surgical History Surgical History: Surgical History H/O Spinal surgery History of cholecystectomy History of colon resection at age 52 History of lumpectomy of both breasts x2 <Nohemi Recinos PA-C - Last Filed: 12/11/23 17:17> Family History Family History: Family History Father Depression Mother Depression Skin cancer (melanoma) Sibling Depression <Nohemi Recinos PA-C - Last Filed: 12/11/23 17:17> Social History Social History: Social History Social History: Single Smoking packs per day: 0.5 Smoking cigarettes per day: 10.0 Years smoked: 44 Smoking pack-years: 22.00 Smoking status: Current every day smoker Tobacco type: cigarettes Second hand tobacco smoke exposure: Yes Smoking end date: 11/17/21 Additional smoking assessment comments: Pt still smokes. Alcohol intake: current Drinks per week: 7 Alcohol use details: occasionally Substance use: never Substance use type: does not use Lack of Transportation: No Lack of Food: Never True Current Housing: I Have Housing Concerned About Future Housing: No Difficulty Paying Gas/Electric Bills: YES Difficulty Paying for Meds: No Currently Unemployed: Decline to Answer Education: Grade School Difficulty w/ Childcare or Family Care: Decline to Answer Living arrangements: alone
[2023-12-11] MEDS: SODIUM CHLORIDE 0.9% IV 500 ML 999 ML IV CONT (14:35)
[2023-12-11 17:20] LABS: Glucose Point of Care 72 mg/dl (65-105)
--- NOTE | 2023-12-11 17:30 | ADMGEN ---
This patient, Nicolasa Campo, was admitted to Medical Room 250-01. Patient/family oriented to hospital policies and general routines including ID bracelet, bed and alarms, visiting hours, pain management, procedures, bathroom and other care routines, personal items, smoking policy, room service/diet, and visiting hours. Information on how to activate the Rapid Response Team has been discussed. Patient/Family are encouraged to report perceived risks to care and to ask questions if they do not understand what they are told or what they should do.
--- NOTE | 2023-12-11 18:26 | PM.IMHP ---
H&P: HPI History of Present Illness Date/Time: 12/11/23 18:26 Chief Complaint: Dizziness, Weakness Narrative: 68 y/o F presents here with intermittent dizziness and generalized weakness with PMH of ETOH abuse, HTN, COPD, diverticular disease with perforation abscess, LIAN, HLD, IBS, former tobacco use (11/21/23), on Mounjaro for weight loss, and depression. Patient reports intermittent dizziness starting at 12:00pm today, 12/11. Patient is also experiencing vision changes, blurred without diplopia or visual field cuts. Has had ongoing worsening vision for the past month. No focal numbness or weakness in her upper extremities or lower extremities. Does report gait disturbance secondary to weakness/ shakiness in her BLE. No dysarthria or new aphasia. Has had been having increased short term memory loss. Concerned she may be showing signs of early dementia. Drinks approximately a half of a 5th per day in the evenings. Reports she drink a little more than usual last night and thought the dizziness was due to dehydration. Initial VS: afebrile, HR 75, RR 20, BP 139/57, 99% on room air. ED workup revealed No leukocytosis, no anemia, hyponatremia with sodium of 129, creatinine 0.9 with BUN of 27, glucose 63, UA not suggestive of UTI, UDS negative, and ETOH negative. no previous history of diabetes. Head CT showed questionable subacute focal infarct of the anterior limb of the right internal capsule verses chronic microvascular ischemic changes. CXR showed normal chest. CTA of the head and neck showed age indeterminate infarct of the right caudate nucleus, mild nonspecific cerebral white matter disease, chronic total occlusion of the cervical right internal carotid artery, 0% stenosis of the proximal left internal carotid artery. Review of Systems Review of Systems: All systems reviewed & are unremarkable except as noted in HPI and below PMFSH Past Medical History Medical History Alcohol abuse Benign essential HTN Chronic pain Colon polyps COPD (chronic obstructive pulmonary disease) Depression Diverticular disease of intestine with perforation and abscess LIAN (generalized anxiety disorder) Hyperlipidemia IBS (irritable bowel syndrome) Pollen allergies Tobacco use Surgical History Surgical History H/O Spinal surgery History of cholecystectomy History of colon resection at age 52 History of lumpectomy of both breasts x2 Family History Family History Father Depression Mother Depression Skin cancer (melanoma) Sibling Depression Social History Social History Social History: Single Smoking packs per day: 0.5 Smoking cigarettes per day: 10.0 Years smoked: 44 Smoking pack-years: 22.00 Smoking status: Former smoker Second hand tobacco smoke exposure: Yes Smoking end date: 11/21/23 Alcohol intake: current Drinks per week: 7 Alcohol use details: occasionally Substance use: never Substance use type: does not use Do You Feel Safe in your Home?: Yes Lack of Transportation: No Lack of Food: Never True Current Housing: I Have Housing Concerned About Future Housing: No Difficulty Paying Gas/Electric Bills: YES Difficulty Paying for Meds: No Currently Unemployed: Decline to Answer Education: Grade School Difficulty w/ Childcare or Family Care: Decline to Answer Living arrangements: alone Occupation/Education: retired Gender identity (if verbalized by the patient): Female Sexual Orientation (if Verbalized by the Patient): Straight or Heterosexual Spiritual care concerns: No Meds Home Medications and Allergies Home Medications Medication Instructions Recorded Confirmed Type cetirizine 10 mg tablet (All Day 10 mg PO DAILY PRN Allergy Symptoms 08/16/21 12/11/23 History Allergy (cetirizine)) al
[2023-12-11 18:51] LABS: Glucose Point of Care 87 mg/dl (65-105)
[2023-12-11] MEDS: SODIUM CHLORIDE 0.9% IV 1,000 ML 100 ML IV CONT (21:11)
[2023-12-11] MEDS: NICOTINE (*PBKC) 21 MG PATCH 1 PATCH TRANSDERM (21:12)
[2023-12-11] MEDS: MELATONIN 5 MG TABLET PO (21:12)
[2023-12-11 21:19] LABS: Glucose Point of Care 129 mg/dl (65-105)
[2023-12-12] VITALS (15 sets, daily range): BP systolic 123–158; BP diastolic 47–91; PULSE 66–82; RESP 16–20; TEMP 36.2–37; O2SAT 95–100
[2023-12-12 00:27] LABS: Glucose Point of Care 94 mg/dl (65-105)
[2023-12-12 01:06] LABS: Sodium Urine Random 44 meq/L
[2023-12-12 05:29] LABS: Glucose Point of Care 82 mg/dl (65-105)
[2023-12-12 05:45] LABS: Basophils Percent Auto 0.5 % (0.2-1.2); Eosinophils Absolute Auto 0.1 K/mm3 (0-0.3); Hematocrit 35.7 % (37.0-47.0); Hemoglobin 11.4 g/dL (12.0-15.0); Immature Granulocyte Absolute 0.02 K/mm3 (0.00-0.031); Immature Granulocyte Percent A 0.4 % (0-0.5); Lymphocytes Absolute Auto 1.96 K/mm3 (0.9-3.2); Lymphocytes Percent Auto 35.6 % (18.3-44.2); Mean Corpuscular HGB Conc 31.9 g/dl (32-36); Mean Corpuscular Hemoglobin 30.9 pg (26-34); Mean Corpuscular Volume 96.7 fl (80-100); Mean Platelet Volume 8.3 fl (7.4-10.4); Monocytes Absolute Auto 0.7 K/mm3 (0.1-0.6); Monocytes Percent Auto 13.4 % (2.6-8.5); Neutrophils Absolute Auto 2.7 K/mm3 (1.3-6.7); Neutrophils Percent Auto 48.1 % (45.5-73.1); Platelet Count Result 265 k/mm3 (150-375); Red Blood Count 3.69 M/mm3 (4.2-5.4); Red Cell Distribution Width 13.5 % (11.5-14.5); White Blood Count 5.5 K/mm3 (4.5-10.0)
[2023-12-12 05:52] LABS: Alanine Aminotransferase 15 U/L (6-35); Albumin Level 3.9 g/dL (3.5-5.1); Alkaline Phosphatase 86 U/L (38-126); Anion Gap 8 mmol/L (8-16); Aspartate Amino Transferase 25 U/L (14-36); Bilirubin,Total 0.4 mg/dL (0.2-1.3); Blood Urea Nitrogen 22 mg/dL (7-17); Carbon Dioxide 24 mmol/L (22-30); Chloride 100 mmol/L (98-107); Cholesterol 239 mg/dL (0-200); Estimated CRCL calculation 56 ml/min; Estimated Glomerular Filt Rate > 60; Glucose 91 mg/dL (65-110); HDL Direct 73 mg/dL; Potassium 4.1 mmol/L (3.4-5.0); Sodium 132 mmol/L (137-145); Triglycerides 113 mg/dL (<150)
[2023-12-12 06:03] LABS: LDL Cholesterol Direct 112 mg/dL
[2023-12-12 06:37] LABS: Hemoglobin A1C 4.6 % (<5.7)
[2023-12-12 06:57] LABS: Folic Acid 3.8 ng/mL (2.76->20)
[2023-12-12] MEDS: UMECLIDINIUM/VILANTEROL 62.5-25 MCG ELLIPTA 1 PUFF INHALATION (08:09)
[2023-12-12 08:15] LABS: Glucose Point of Care 82 mg/dl (65-105)
[2023-12-12] MEDS: ENOXAPARIN 40 MG/0.4 ML SYRINGE SUB-Q (08:31)
[2023-12-12] MEDS: ATORVASTATIN 40 MG TABLET 80 MG PO (08:31)
[2023-12-12] MEDS: NICOTINE (*PBKC) 21 MG PATCH 1 PATCH TRANSDERM (08:31)
[2023-12-12] MEDS: buPROPion HCL XL (24 HR) 150 MG TABCR PO (08:32)
[2023-12-12] MEDS: FOLIC ACID 1 MG TABLET PO (08:32)
[2023-12-12] MEDS: ASPIRIN 81 MG ENTERIC TABLET PO (08:32)
[2023-12-12] MEDS: THIAMINE HCL 100 MG TABLET PO (08:32)
[2023-12-12] MEDS: SERTRALINE HCL 50 MG TABLET 100 MG PO (08:32)
[2023-12-12] MEDS: CLOPIDOGREL BISULFATE 75 MG TABLET PO (08:32)
--- NOTE | 2023-12-12 08:58 | PM.IMPN ---
Progress Note: A&P Assessment and Plan (1) Acute CVA (cerebrovascular accident): Code(s): I63.9 - Cerebral infarction, unspecified Status: Acute Assessment and Plan: 12/11/23: New deficits of intermittent dizziness and blurred vision starting on 12/11/[address] non-con: questionable subacute focal infarct in the anterior limb of the right internal capsule versus chronic microvascular ischemic change. Correlate with patient's symptomatology. Atrophy and chronic white matter changes, as above. -admission for observation and telemetry -Not candidate for thrombolytics due to NIHSS being 0 -Intial Inpatient NIHSS 0 -CXR: No acute cardiopulmonary findings, normal chest. -CTA: 1. Age-indeterminate infarct in right caudate nucleus. 2. Mild nonspecific cerebral white matter disease, which likely represents chronic small vessel ischemic disease. 3. Chronic total occlusion of cervical right internal carotid artery. 4. 0% stenosis of the proximal left internal carotid artery relative to normal distal artery lumen diameter (NASCET criteria). -Neurology consulted - MD Garret -Brain MRI w/wo ordered -Echo w/Bubble ordered -neuro checks Q4 -heart healthy diet - passed bedside swallow -monitor daily labs, lipid panel, A1C -up ad bree or fall precautions -continue Atorvastatin 80 mg PO -continue Plavix 75 mg PO -Start ASA 81 mg -consider 30 day event monitoring at discharge -orthostatic VS QShift 12/12/23: Denies any dizziness or blurred vision MRI negative for acute findings, shown age related changes Continue fall precautions Continue atorvastatin, plavix, ASA Echo pending (2) Chronic hyponatremia: Code(s): E87.1 - Hypo-osmolality and hyponatremia Status: Acute Assessment and Plan: 12/11/23: - Na 129 - previously 129-134 since 2021 - currently on sertraline - add serum osmolality, urine osmolality, urine sodium - 500 mL bolus of NS, additional L at 100 mL/hr - monitor electrolytes 12/12/23: Na+ 132 serum osmolarity, urine osmolarity, and urine sodium pending Patient does admit to drinking vodka every night continue to monitor electrolytes (3) Alcohol abuse: Code(s): F10.10 - Alcohol abuse, uncomplicated Status: Acute Assessment and Plan: 12/11/23: - current use: 1/2 of a pint per night. - last drink: last night (12/01) around 10:30p - adding thiamine and folic acid supplementation - CIWA currently 0, holding on protocol. denies withdrawal symptoms with cessation: N/V/D, diaphoresis, hallucinations, tremors, or seizures. 12/12/23: Continue with current treatment plan (4) Benign essential HTN: Code(s): I10 - Essential (primary) hypertension Status: Acute Assessment and Plan: 12/11/23: - chronic, borderline low. has previously come off BP medications post-weight loss. currently on Mounjaro, has lost 55 lbs in the last year. - hold home lisinopril. - monitor. 12/12/23: Continue current treatment plan Blood pressure stable ranging 139/61-138/54 (5) Hypoglycemia: Code(s): E16.2 - Hypoglycemia, unspecified Status: Acute Assessment and Plan: 12/11/23: - on Mounjaro 10 mg SQ on 12/10/23. Last titration a few months ago. Indication - weight loss. Has lost 55 lbs in the last year, goal was less than 200 lbs to have surgical management of her R hip. Currently 185 lbs. - hold Mounjaro - BS 63 at arrival - corrected with apple juice - glucose checks Q6H, hypoglycemia protocol 12/12/23: BG ranging 82-89 Continue with current treatment plan Time Spent With Patient Time with patient: Greater than 35 minutes Subjective Date/time seen: 12/12/23 08:58 Interval history: This is a 68 year old female who presented to the hospital on 12/11/23 with complaints of dizziness, vision changes, and weakness. Work up in the hospital included a head CT that shown questionable subacute focal infarct in the anterior l
--- NOTE | 2023-12-12 09:43 | WPDNEURCNPN ---
Assessment and Plan Assessment and plan (1) Dizziness: Code(s): R42 - Dizziness and giddiness Status: Acute (2) Chronic alcohol use: Code(s): F10.90 - Alcohol use, unspecified, uncomplicated Status: Acute Plan Nicolasa Campo is a 68 year old female with a history of chronic alcohol use, HTN, COPD, anxiety, HLD, IBS, depression presenting for intermittent dizziness and generalized weakness. MRI brain is negative for acute infarct, so central cause has been ruled out. She reports short term memory loss which could be related to chronic alcohol use. Thiamine level is pending. She has already been started on thiamine 100mg. She already takes Plavix, and aspirin has been added during this admission as well. LDL is elevated despite being on Lipitor 80mg, will likely need a second agent, especially in the setting of carotid disease. Consult date: 12/12/23 Reason for consult: Dizziness HPI: Nicolasa Campo is a 68 year old female with a history of chronic alcohol use, HTN, COPD, anxiety, HLD, IBS, depression presenting for intermittent dizziness. Patient presented to [place] ED after developing intermittent dizziness at 12pm yesterday. She alos feels weak in her legs and tremulousness in her legs as well. She has also been having increased shor term memory loss. She drinks about a half of a 5th per dayy. The night prior to admission she drank a little more than that. When she presented to [place] ED her blood pressure was in the 410-160s systolic. EKG showed normal sinus rhythm. CT head was negative for acute process but showed possible age indeterminate infarct in the R caudate nucleus, and CTA brain/carotid showed chronic total occlusion of the cervical R ICA. Her toxicology screen and UA were negative. Lab work was significant for sodium of 129. No WBC elevation. Her ETOH level was negative. She takes Mounjaro for weight loss. She does not have a prior history of diabetes. MRI brain was obtained which was negative for any acute or subacute infarction. Her vitamin B12 and folate levels are within normal range. Thiamine level is pending. LDL is 112. She takes plavix and atorvastatin 80mg already. Patient reports she feels much better today. Her dizziness and pain in the legs has essentially resolved. Review of Systems Review of Systems: All systems reviewed & are unremarkable except as noted in HPI and below PMFSH Past Medical History Medical History Alcohol abuse Benign essential HTN Chronic pain Colon polyps COPD (chronic obstructive pulmonary disease) Depression Diverticular disease of intestine with perforation and abscess LIAN (generalized anxiety disorder) Hyperlipidemia IBS (irritable bowel syndrome) Pollen allergies Tobacco use Surgical History Surgical History H/O Spinal surgery History of cholecystectomy History of colon resection at age 52 History of lumpectomy of both breasts x2 Family History Family History Father Depression Mother Depression Skin cancer (melanoma) Sibling Depression Social History Social History Social History: Single Smoking packs per day: 0.5 Smoking cigarettes per day: 10.0 Years smoked: 44 Smoking pack-years: 22.00 Smoking status: Former smoker Second hand tobacco smoke exposure: Yes Smoking end date: 11/21/23 Alcohol intake: current Drinks per week: 7 Alcohol use details: occasionally Substance use: never Substance use type: does not use Do You Feel Safe in your Home?: Yes Lack of Transportation: No Lack of Food: Never True Current Housing: I Have Housing Concerned About Future Housing: No Difficulty Paying Gas/Electric Bills: YES Difficulty Paying for Meds: No Currently Unemployed: Decline to Answer Education: Grade School Difficulty w/ Childcare or
[2023-12-12 12:06] LABS: Glucose Point of Care 89 mg/dl (65-105)
[2023-12-12 17:09] LABS: Glucose Point of Care 90 mg/dl (65-105)
--- NOTE | 2023-12-12 18:33 | ECHO_ITS ---
Patient Info Name: Nicolasa Campo Age: 68 years : 1955 Gender: Female Ht: 60 in Wt: 182 lbs BSA: 1.91 m2 HR: 66 bpm BP: 139 / 61 mmHg Heart Rhythm: Sinus Rhythm Technical Quality: Good Exam Date: 12/12/2023 10:58 AM Exam Location: Echo Lab Exam Room: 250 Patient Status: Inpatient Admit Date: 12/11/2023 Staff Ordering Physician: Kathie Roberts APRN Supervisor Telephone Information: Amanda Leong RDCS Attending Provider: Miguel Angel Best MD Referring Physician: Alejandra FRIEND; Exam Type: CA echo doppler w bubble study Study Info Indications - new CVA Complete two-dimensional, color flow and Doppler transthoracic echocardiogram is performed with agitated saline. Contrast/Agitated Saline Contrast/Ag. Saline: Agitated Saline Amount: 20.00 ml Administered By: Amanda Leong [facility] Existing IV Access: Yes IV Access Condition: patent with no signs of infiltration Summary 1. Normal left and right ventricular size and systolic function. 2. Mild mitral annular calcification. 3. Saline contrast injection is negative for intracardiac shunt. 4. No apparent cardioembolic source was identified. Left Ventricle Left ventricular chamber dimension is normal. Left ventricular systolic function is normal, estimated at 60-65%. The left ventricular diastolic function is normal. Right Ventricle Right ventricular chamber dimension is normal. Left Atria Left atrial chamber dimension is normal. Right Atria Right atrial chamber dimension is normal. Atrial Septum Intact interatrial septum visualized by agitated saline imaging. Aortic Valve The aortic valve is normal. There is trace aortic valve regurgitation. Pulmonic Valve The pulmonic valve is normal. Mitral Valve The mitral valve has normal leaflets. The mitral valve annulus is mildly calcified. Tricuspid Valve The tricuspid valve leaflets are normal. Pericardium/Pleural The pericardium appears normal. Aorta The aortic root size at the sinus of Valsalva is normal. Left Ventricular Outflow Tract Name Value Normal LVOT 2D LVOT Diameter 2.0 cm LVOT Doppler LVOT Peak Gradient 6 mmHg LVOT Mean Gradient 3 mmHg LVOT VTI 23 cm LVOT VTI/AV VTI Ratio 0.7 LVOT Stroke Volume 70 ml LVOT CO 15.3 l/min LVOT CI 8.0 l/min/m2 Pulmonic Valve Name Value Normal RVOT Doppler RVOT Peak Gradient 2 mmHg PV Doppler PV Peak Gradient 4 mmHg Mitral Valve Name Value Normal
[2023-12-12] MEDS: DOCUSATE SODIUM 100 MG CAPSULE PO (20:24)
[2023-12-12] MEDS: MELATONIN 5 MG TABLET PO (20:24)
[2023-12-12 21:21] LABS: Glucose Point of Care 102 mg/dl (65-105)
[2023-12-13] VITALS (8 sets, daily range): BP systolic 110–143; BP diastolic 33–59; PULSE 66–71; RESP 18; TEMP 36.4; O2SAT 93–96
[2023-12-13 01:09] LABS: Glucose Point of Care 98 mg/dl (65-105)
[2023-12-13 06:17] LABS: Glucose Point of Care 88 mg/dl (65-105)
--- NOTE | 2023-12-13 07:55 | PM.DS ---
DS: Admitting Diagnosis Discharge Date 12/13/23 Admitting Diagnosis Acute CVA Chronic hyponatremia Alcohol abuse Benign essential HTN hypoglycemia DS: Discharge Diagnosis Discharge Diagnosis (1) Acute CVA (cerebrovascular accident): Code(s): I63.9 - Cerebral infarction, unspecified Status: Acute (2) Chronic hyponatremia: Code(s): E87.1 - Hypo-osmolality and hyponatremia Status: Acute (3) Alcohol abuse: Code(s): F10.10 - Alcohol abuse, uncomplicated Status: Acute (4) Benign essential HTN: Code(s): I10 - Essential (primary) hypertension Status: Acute (5) Hypoglycemia: Code(s): E16.2 - Hypoglycemia, unspecified Status: Acute DS: Summary Hospital Course Reason for hospitalization: CVA hypoglycemia alcohol abuse Hospital Course: 12/13/23 This is a 68 year old female who presented to the hospital on 12/11/23 with complaints of dizziness, vision changes, and weakness. Work up in the hospital included a head CT that shown questionable subacute focal infarct in the anterior limb of the right internal capsule versus chronic microvascular ischemic changes. CXR was negative. Head and Neck CTA shown age-indeterminate infarct in right caudate nucleus, age related changes, chronic total occlusion of cervical right internal carotid artery, no stenosis in left internal carotid artery. MRI of brain was negative for acute/subacute infarct, intracranial mass, or hemorrhage, shown moderate chronic white matter ischemic changes and mild generalized atrophy. Labs were essentially unremarkable except for Na+ 129, Chloride 95, BUN 27, BG 63, liver enzymes were normal. UA was performed and was negative.Tox. screen was negative, alcohol level <10. EKG shown NSR with rate of 72, prolonged QTc. Patient was given 1L NS while in ER. BG corrected without intervention. Neurology and Cardiology were consulted. On examination today patient is alert oriented x3, lying in the bed.? She denies fever, chills, nausea, vomiting, diarrhea, abdominal pain, chest pain, shortness a breath, lightheadedness, dizziness, visual changes, numbness, tingling.? VSS, she is afebrile, currently on room air. Labs today revealed Hgb 11.4, Hct 35.7, Na+ 132, BUN 22, cholesterol 239, folate 3.8, vitamin B 12 480, urine sodium 44, urine osmolarity and serum osmolarity pending. Echo pending. 12/14/23: On examination today patient is alert and oriented x3, lying in the bed. She denies any new complaints today. Her Blood glucose is stable. She did not have any more hypoglycemic episodes over night. Echo is normal with normal LV systolic function, EF 60-65%, RV function is normal. She denies any lightheadedness, dizziness, nausea, vomiting, diarrhea, abdominal pain, chest pain, shortness of breath, or headache. We ruled out CVA or any cardiac origin that could be contributing to her initial symptoms. Final diagnosis: hypoglycemia, alcohol abuse Status at Discharge Cognitive/behavioral status at discharge: Alert and oriented x3 Functional status at discharge: independent ambulation Overall status at discharge: patient is progressing back to baseline Time Spent with Patient Time attestation: Total time spent providing and/or coordinating discharge services: Time spent: Greater than 30 minutes Exam Narrative: General: In no acute distress, well nourished Head: atraumatic, no encephalopathy Eyes: EOMI, PERRLA, sclera clear ENT: moist mucous membranes, nasal passages clear Neck: supple, no JVD, no adenopathy, trachea midline Cardiac: Normal S1 and S2. RRR. No murmur, gallops or friction rubs, peripheral pulses intact. Respiratory: Lungs clear to auscultation, no adventitious lung sounds Gastrointestinal: soft, non-distended, non-tender, normoactive bowel sounds. : voiding without difficulty. Extremities: moves all extremities well, no edema Skin: clean, dry, intact. No wounds or lesions. Neuro: Alert and oriented x4, cranial nerve
[2023-12-13] MEDS: UMECLIDINIUM/VILANTEROL 62.5-25 MCG ELLIPTA 1 PUFF INHALATION (08:09)
[2023-12-13] MEDS: DOCUSATE SODIUM 100 MG CAPSULE PO (08:44)
[2023-12-13] MEDS: ATORVASTATIN 40 MG TABLET 80 MG PO (08:44)
[2023-12-13] MEDS: buPROPion HCL XL (24 HR) 150 MG TABCR PO (08:45)
[2023-12-13] MEDS: FOLIC ACID 1 MG TABLET PO (08:45)
[2023-12-13] MEDS: THIAMINE HCL 100 MG TABLET PO (08:45)
[2023-12-13] MEDS: CLOPIDOGREL BISULFATE 75 MG TABLET PO (08:45)
[2023-12-13] MEDS: ENOXAPARIN 40 MG/0.4 ML SYRINGE SUB-Q (08:45)
[2023-12-13] MEDS: ASPIRIN 81 MG ENTERIC TABLET PO (08:45)
[2023-12-13] MEDS: SERTRALINE HCL 50 MG TABLET 100 MG PO (08:45)
[2023-12-13] MEDS: NICOTINE (*PBKC) 21 MG PATCH 1 PATCH TRANSDERM (08:45)
--- NOTE | 2023-12-13 13:17 | PCPTNOTE ---
Patient reports she is going home, double checked with nurse and that is true, so will hold off on eval as patient reports no issues requiring therapy.
[2023-12-14 22:49] LABS: Osmolality, Urine 283 mOsm/kg (50-1200)
== END 2023-12-13 13:47 | disposition home or self-care (01) ==
LOC: ANHED 17:07 → ANH2MED 12-12 08:41
PROVIDERS: Student in an Organized Health Care Education/Training Program; Admitting Provider Internal Medicine; Emergency Provider Physician Assistant; PCP Family Medicine; Visit Provider Internal Medicine
DX: I63.9 Cerebral infarction, unspecified (principal); E87.1 Hypo-osmolality and hyponatremia; E16.2 Hypoglycemia, unspecified; I10 Essential (primary) hypertension; J44.9 Chronic obstructive pulmonary disease, unspecified; E78.5 Hyperlipidemia, unspecified; F41.1 Generalized anxiety disorder; K58.9 Irritable bowel syndrome, unspecified; F32.A Depression, unspecified; F10.10 Alcohol abuse, uncomplicated; R29.700 NIHSS score 0; Z90.49 Acquired absence of other specified parts of digestive tract; F17.210 Nicotine dependence, cigarettes, uncomplicated; Z79.51 Long term (current) use of inhaled steroids; Z79.85 Long-term (current) use of injectable non-insulin antidiabetic drugs; Z79.02 Long term (current) use of antithrombotics/antiplatelets; Z87.19 Personal history of other diseases of the digestive system; Z79.899 Other long term (current) drug therapy
CPT/HCPCS: 36415; 70450; 70496; 70498; 70553; 71046; 80053; 80061; 80307; 81001; 82607; 82746; 82948; 83036; 83930; 83935; 84300; 84425; 85025; 93005; 93306; 94640; 96360; 96372; 96375; 97165; 99285; A9270; A9577; G0378; J1650; J7030; J7040; Q9967

== ENCOUNTER 2023-12-15 15:52 | Outpatient (CLI) | payer MEDICARE, MEDICAID, SELFPAY ==
--- NOTE | ~2023-12-15 | XR_ITS ---
XR hip LT 2V w AP pelvis DATE: 12/15/2023 16:26 INDICATION: Left hip primary osteoarthritis TECHNIQUE: AP pelvis. AP and lateral views of left hip COMPARISON: None FINDINGS: Diffuse osteopenia. There is levoscoliosis of the lumbar spine and severe degenerative disease at L3-4 and particularly L 4-5, as well as L5-S1. Normal alignment at the pubic symphysis and sacroiliac joints. No pelvic fracture or bone destruction is evident. There is flattening deformity of the right femoral head with severe secondary right hip osteoarthriti s. There is severe left hip primary osteoarthritis, with severe joint space narrowing in particular supe rolaterally and prominent spurring. Status post abdominal wall surgical repair. Postoperative change of the pelvis. 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 MENDER IMPRESSION: Severe primary left hip osteoarthritis More severe secondary right hip osteoid arthritis and probable avascular necros is of right femoral head
--- NOTE | ~2023-12-15 | XR_ITS ---
XR hip RT min 2V DATE: 12/15/2023 16:26 INDICATION: Right hip pain TECHNIQUE: AP and lateral views COMPARISON: None FINDINGS: There is moderate flattening deformity of the right femoral head. There is patchy sclerosis and lucency of the right femoral head and acetabulum. There is prominent spurring at the right hip j oint. The findings suggest right femoral head avascular necrosis with severe secondary right hip oste oarthritis. No acute fracture or dislocation is evident. Normal alignment at the pubic symphysis and right sacroiliac joint. Postoperative changes of the pelvis. 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 RVENTION ANALYST
== END 2023-12-15 15:53 | disposition home or self-care (01) ==
LOC: ANHIMG 15:59
PROVIDERS: PCP Family Medicine; Visit Provider Orthopaedic Surgery
DX: M16.0 Bilateral primary osteoarthritis of hip (principal)
CPT/HCPCS: 73502

== ENCOUNTER 2024-01-06 10:35 | Outpatient (CLI) | payer MEDICARE, MEDICAID, SELFPAY ==
--- NOTE | ~2024-01-06 | CT_ITS ---
EXAMINATION: CTA abd aorta runoff DATE: 01/06/2024 11:02 INDICATION: Peripheral arterial disease, abnormal AAMIR TECHNIQUE: Computed tomographic angiography (CTA) of the abdomen, pelvis, and both lower extremities was performed with 150 mL Omnipaque-350 intravenous contrast. The dose-length product (DLP) was 1400. 75 mGy-cm. Maximum intensity projection 3D-reconstructions of the arteries were created by the techno [employer] on a separate workstation. Automated exposure control and iterative reconstruction technique w ere employed. COMPARISON: None. FINDINGS: ABDOMINAL AORTA AND ITS BRANCHES: No aneurysm or dissection. The celiac axis and superior mesenteric artery are normal at their origins . The inferior mesenteric artery is diminutive at its origin. There are single renal arteries. PELVIC VASCULATURE: The external iliac arteries are unremarkable. There are areas of atherosclerosis and mild to moderate stenosis of the internal iliac arteries. RIGHT LOWER EXTREMITY VASCULATURE: There is mild atherosclerosis of the common femoral artery. There is atherosclerosis and mild stenosi s at the origin of the superficial femoral artery. There is a focal area of atherosclerosis with mild stenosis in the proximal superficial femoral artery. Atherosclerosis with moderate stenosis is prese nt in the distal superficial femoral artery. The popliteal artery demonstrates atherosclerosis withou t hemodynamically significant stenosis. There is moderate stenosis at the origin of the anterior tibi al artery. The posterior tibial and peroneal arteries are unremarkable. There is a three-vessel runof f at the ankle. LEFT LOWER EXTREMITY VASCULATURE: The femoral artery and superficial femoral artery are unremarkable. There is calcified atherosclerosi s without significant stenosis of the popliteal artery. There is mild stenosis in the tibial peroneal trunk. The anterior and posterior tibial arteries are unremarkable. The peroneal artery is diminutiv e in its distal aspect but patent at the ankle. There is a three-vessel runoff at the ankle. ADDITIONAL FINDINGS: The liver, pancreas, and adrenal glands are normal. Heterogeneous enhancement of the spleen likely re flects early arterial phase imaging. The gallbladder is surgically absent. There is moderate enlargem ent of the common bile duct and central intrahepatic ducts which is likely due to post cholecystectom y state. There is a 5 mm cyst of the right kidney. The left kidney is unremarkable. No pathologically enlarged abdominal or pelvic lymph nodes are identified. No free intraperitoneal gas or evidence of bowel obstruction. There are changes of mesh ventral hernia repair with a persistent midline ventral hernia noted. There is a surgical anastomosis in the sigmoid colon. There is fluid in the right hip j oint advanced osteoarthritis. There is moderate osteoarthritis of the left hip. There is severe lumba r spondylosis. IMPRESSION: 1. Vascular disease as detailed above. Reviewed, dictated and finalized at location L. GED CARE COORDINATOR
== END 2024-01-06 10:36 | disposition home or self-care (01) ==
LOC: ANHIMG 10:39
PROVIDERS: PCP Family Medicine; Visit Provider Internal Medicine Cardiovascular Disease
DX: R68.89 Other general symptoms and signs (principal); Z90.49 Acquired absence of other specified parts of digestive tract
CPT/HCPCS: 75635; Q9967

== ENCOUNTER 2024-03-27 17:30 | Emergency (ER) | payer MEDICARE, SELFPAY ==
--- NOTE | ~2024-03-27 | US_ITS ---
EXAMINATION: US venous doppler LE RT DATE: 03/27/2024 18:04 INDICATION: Leg pain, recent surgery. TECHNIQUE: Grayscale images without and with compression and Doppler images of the right lower extrem ity veins were obtained. COMPARISON: None FINDINGS: The right common femoral vein, profunda (deep) femoral vein, femoral vein, popliteal vein, peroneal v ein, posterior tibial veins, gastrocnemius vein, and greater saphenous vein are patent. Incidental no te of subcutaneous edema. IMPRESSION: Patent right lower extremity veins. No evidence of deep venous thrombosis. Reviewed, dictated and finalized at location K.
[2024-03-27 17:31] VITALS: BP 134/54; PULSE 78; RESP 16; TEMP 36.3; O2SAT 98
--- NOTE | 2024-03-27 18:42 | ED.GENADULT ---
HPI - General Adult General Chief complaint: Recheck/Abnormal Lab/Rx Stated complaint: r/o dvt Time Seen by Provider: 03/27/24 18:42 Source: patient Mode of arrival: EMS Limitations: no limitations History of Present Illness HPI narrative: 68-year-old with a history of hypertension hyperlipidemia, neuropathy status post right hip replacement 5 days ago it is today are with the complaints of swelling to her right leg. Patient was initially seen at the [facility] was later referred to our ER for venous Doppler studies. She presently denies any chest pain or shortness of breath. Onset (ago): day(s) (1) Location: lower extremity (Right) Severity: moderate Pain Consistency: constant Relieving factors: none Exacerbating factors: none Associated symptoms: denies other symptoms Related Data Home Medications Medication Instructions Recorded Confirmed cetirizine 10 mg tablet (All Day 10 mg PO DAILY PRN Allergy Symptoms 08/16/21 01/29/24 Allergy (cetirizine)) atorvastatin 80 mg tablet 80 mg PO DAILY 12/11/23 01/29/24 Allergies Allergy/AdvReac Type Severity Reaction Status Date / Time morphine AdvReac Intermediate Rapid Verified 03/27/24 17:36 heart rate Review of Systems Review of Systems: All systems reviewed & are unremarkable except as noted in HPI and below Constitutional: Constitutional: Reports no additional constitutional complaints Eyes: Eyes: Reports no additional eye complaints ENT: Reports system reviewed and no additional complaints, except as documented Cardiovascular: Cardiovascular: Reports no additional cardiovascular complaints Respiratory: Respiratory: Reports no additional respiratory complaints Musculoskeletal: Musculoskeletal: Reports as per HPI Neurologic: Reports system reviewed and no additional complaints, except as documented PMFSH Past Medical History Medical History Alcohol abuse Benign essential HTN Chronic pain Colon polyps COPD (chronic obstructive pulmonary disease) Depression Diverticular disease of intestine with perforation and abscess LIAN (generalized anxiety disorder) Hyperlipidemia IBS (irritable bowel syndrome) Pollen allergies Tobacco use Surgical History Surgical History H/O Spinal surgery History of cholecystectomy History of colon resection at age 52 History of lumpectomy of both breasts x2 Family History Family History Father Depression Mother Depression Skin cancer (melanoma) Sibling Depression Social History Social History Social History: Single Smoking packs per day: 0.5 Smoking cigarettes per day: 10.0 Years smoked: 44 Smoking pack-years: 22.00 Smoking status: Former smoker Second hand tobacco smoke exposure: Yes Smoking end date: 11/21/23 Alcohol intake: current Drinks per week: 7 Alcohol use details: occasionally Substance use: never Substance use type: does not use Do You Feel Safe in your Home?: Yes Lack of Transportation: No Lack of Food: Never True Current Housing: I Have Housing Concerned About Future Housing: No Difficulty Paying Gas/Electric Bills: YES Difficulty Paying for Meds: No Currently Unemployed: Decline to Answer Education: Grade School Difficulty w/ Childcare or Family Care: Decline to Answer Living arrangements: alone Occupation/Education: retired Gender identity (if verbalized by the patient): Female Sexual Orientation (if Verbalized by the Patient): Straight or Heterosexual Spiritual care concerns: No Exam Narrative: GENERAL: Well-appearing, well-nourished, and in no acute distress. HEAD: Normocephalic, atraumatic. EYES: PERRLA and EOMI. ENT: Nares clear, no rhinorrhea or epistaxis. Mucous membranes moist. NECK: Supple. CHEST: Clear to auscultation. No respiratory d
[2024-03-27 18:43] VITALS: BP 117/60; PULSE 72; RESP 18; TEMP 36.7; O2SAT 99
== END 2024-03-27 19:03 | disposition home or self-care (01) ==
LOC: ANHED 18:54
PROVIDERS: Emergency Provider Family Medicine; PCP Family Medicine
DX: R60.0 Localized edema (principal); I10 Essential (primary) hypertension; E78.5 Hyperlipidemia, unspecified; J44.9 Chronic obstructive pulmonary disease, unspecified; G62.9 Polyneuropathy, unspecified; K58.9 Irritable bowel syndrome, unspecified; Z86.010 Personal history of colon polyps; Z87.891 Personal history of nicotine dependence; Z90.49 Acquired absence of other specified parts of digestive tract; Z79.82 Long term (current) use of aspirin; Z79.85 Long-term (current) use of injectable non-insulin antidiabetic drugs; Z79.02 Long term (current) use of antithrombotics/antiplatelets
CPT/HCPCS: 93971; 99284

== ENCOUNTER 2024-05-25 10:27 | Outpatient (CLI) | payer MEDICARE, MEDICAID, SELFPAY ==
[2024-05-25 10:54] LABS: Hemoglobin 13.7 g/dL (12.0-15.0); Mean Corpuscular HGB Conc 33.4 g/dl (32-36); Mean Corpuscular Hemoglobin 31.5 pg (26-34); Mean Corpuscular Volume 94.3 fl (80-100); Mean Platelet Volume 8.2 fl (7.4-10.4); Platelet Count Result 288 k/mm3 (150-375); Red Blood Count 4.35 M/mm3 (4.2-5.4); Red Cell Distribution Width 14.3 % (11.5-14.5); White Blood Count 7.8 K/mm3 (4.5-10.0)
[2024-05-25 11:04] LABS: Prothrombin Time 13.6 Seconds (11.1-14.7)
[2024-05-25 11:19] LABS: Alanine Aminotransferase 21 U/L (6-35); Alkaline Phosphatase 111 U/L (38-126); Anion Gap 12 mmol/L (4-12); Aspartate Amino Transferase 32 U/L (14-36); Bilirubin,Total 0.5 mg/dL (0.2-1.3); Blood Urea Nitrogen 19 mg/dL (7-17); Calcium 9.7 mg/dL (8.4-10.2); Carbon Dioxide 25 mmol/L (22-30); Chloride 97 mmol/L (98-107); Cholesterol 197 mg/dL (0-200); Estimated Glomerular Filt Rate > 60; Glucose 86 mg/dL (65-110); HDL Direct 96 mg/dL; Potassium 4.4 mmol/L (3.4-5.0); Sodium 134 mmol/L (137-145); Triglycerides 80 mg/dL (<150)
[2024-05-25 11:30] LABS: LDL Cholesterol Direct 78 mg/dL
[2024-05-26 18:20] LABS: Hemoglobin A1C 4.4 % (<5.7)
[2024-05-29 16:14] LABS: Vitamin D 1,25 (OH)2 Total 19 pg/mL (18-72); Vitamin D2 1,25 (OH)2 <8 pg/mL; Vitamin D3 1,25 (OH)2 19 pg/mL
== END 2024-05-25 10:28 | disposition home or self-care (01) ==
LOC: ANHLAB 10:31
PROVIDERS: PCP Family Medicine; Visit Provider Family Medicine
DX: E78.5 Hyperlipidemia, unspecified (principal); I10 Essential (primary) hypertension; E55.9 Vitamin D deficiency, unspecified; E87.1 Hypo-osmolality and hyponatremia; R73.09 Other abnormal glucose; D69.9 Hemorrhagic condition, unspecified; E66.9 Obesity, unspecified; Z79.899 Other long term (current) drug therapy
CPT/HCPCS: 36415; 80053; 80061; 82652; 83036; 84443; 85027; 85610

== ENCOUNTER 2024-07-06 09:31 | Outpatient (CLI) | payer MEDICARE, MEDICAID, SELFPAY ==
--- NOTE | ~2024-07-06 | MM_ITS ---
EXAMINATION: MM screening judith BI w veronika HISTORY: Screening TECHNIQUE: Craniocaudal and mediolateral oblique 3-D tomosynthesis images were obtained and synthetic 2-D images were generated. CAD analysis was submitted and interpreted. COMPARISON: 06/03/2022 BREAST PARENCHYMAL COMPOSITION: Not dense: There are scattered areas of fibroglandular density. FINDINGS: There is no evidence of suspicious mass, calcification, or architectural distortion to sugg est malignancy in either breast. There has been no suspicious interval change. IMPRESSION: 1. No mammographic evidence of malignancy. 2. Recommend routine screening mammography in one year. BI-RADS Category 1: Negative Reviewed, dictated and finalized at location B.
== END 2024-07-06 09:32 | disposition home or self-care (01) ==
LOC: ANHIMG 09:32
PROVIDERS: PCP Family Medicine; Visit Provider Nurse Practitioner
DX: Z12.31 Encounter for screening mammogram for malignant neoplasm of breast (principal)
CPT/HCPCS: 77063; 77067

== ENCOUNTER 2024-09-14 12:33 | Outpatient (CLI) | payer MEDICARE, MEDICAID, SELFPAY ==
--- NOTE | ~2024-09-14 | CT_ITS ---
CT Scan of the Chest without Contrast: Clinical Indication: Lung cancer screening, nicotine dependence Technique: Contiguous sections were acquired throughout the chest without intravenous contrast. Dose reduction technique was used on this scan by utilizing automated exposure control and iterative recon struction technique. The dose-length product (DLP) was 127.99 mGy-cm. COMPARISON: 09/08/2023 Findings: There is no evidence of any significant mediastinal, hilar or axillary lymphadenopathy. There are ext ensive atherosclerotic calcifications of the aorta and coronary arteries. There is no evidence of pleural or pericardial effusion. Probable minimal upper lobe subpleural reticulation and/or emphysema. No pulmonary nodule evident. Images through the upper abdomen reveal possible partially imaged upper ventral hernia. Impression: Lung RADS 1: Negative. 12 month follow-up screening CT advised. Reviewed, dictated and finalized at [facility]. Impression: Lung RADS 1: Negative. 12 month follow-up screening CT advised.
== END 2024-09-14 12:34 | disposition home or self-care (01) ==
PROVIDERS: PCP Family Medicine; Visit Provider Physician Assistant
DX: Z12.2 Encounter for screening for malignant neoplasm of respiratory organs (principal); Z87.891 Personal history of nicotine dependence
CPT/HCPCS: 71271

== ENCOUNTER 2024-11-11 14:57 | Outpatient (CLI) | payer MEDICARE, MEDICAID, SELFPAY ==
--- NOTE | ~2024-11-11 | DEXA_ITS ---
Bone Density Report Name: ANNIE MCARTHUR Age: 69 Sex: Female Ethnicity: White Date of : 1955 Indication: postmenopausal; screening for osteoporosis; height loss; Referring Provider: RICHARD LANE Study: Bone densitometry was performed. Exam Date: November 11, 2024 Accession number: [id number] Bone Density: Region BMD T-score Z-score Classification AP Spine(L2, L3, L4) 1.328 2.3 4.4 Normal Femoral Neck (Left) 0.823 -0.2 1.5 Normal Total Hip (Left) 0.922 -0.2 1.3 Normal World Health Organization criteria for BMD impression classify patients as: Normal (T-score at or above -1.0), Osteopenia (T-score between -1.0 and -2.5), or Osteoporosis (T-score at or below -2.5). 10-year Fracture Risk: FRAX not reported because: All T-scores for Spine Total, Hip Total, Femoral Neck at or above -1.0 Clinical Information Provided by Patient: Smokes Has 3 or more alcoholic drinks per day Has used the following medications: Vitamin D Patient maximum height was 62 Menopause Age: 50 No regular weight bearing exercise Drinks caffeinated beverages Onset of menses at age 10 Number of children 2 Impression: The patient has normal bone mass. The patient has risk factors, including: smoking, excessive alcohol use. Discussion: BONE DENSITY IS ABOVE THE MINIMUM DESIRABLE LEVEL AT ALL SKELETAL SITES TESTED. This patient?s bone mineral density is above the minimum desirable level (T-score -1.0 or better) at all sites measured. The patient should follow a healthful lifestyle (good nutrition with adequate calcium and vitamin D, and appropriate weight-bearing exercise). Follow-Up: Consider repeating this study in 5 years or sooner if there is some new clinical indication. Reported by: ANNA on 11/11/2024 3:33:00 PM. Reviewed, dictated and finalized at location A.
== END 2024-11-11 14:58 | disposition home or self-care (01) ==
LOC: ANHIMG 14:58
PROVIDERS: PCP Family Medicine; Visit Provider Nurse Practitioner
DX: M85.88 Other specified disorders of bone density and structure, other site (principal)
CPT/HCPCS: 77080

== ENCOUNTER 2025-02-03 10:29 | Outpatient (CLI) | payer MEDICARE, MEDICAID, SELFPAY ==
--- NOTE | ~2025-02-03 | CT_ITS ---
Pre and postcontrast Head CT History: Amnesia Technique: Axial imaging of the brain was performed prior to and following intravenous administratio n of 100 cc of Omnipaque 350 contrast material. Dose reduction technique was used on this scan by uti lizing automated exposure control and iterative reconstruction technique. The dose-length product (DL P) was 1210.67 mGy-cm. Findings: There is no evidence of intracranial hemorrhage, mass lesion, or acute infarct. There are mild chronic appearing hypodensities in the periventricular white matter bilaterally. The ventricles and subarachnoid spaces are normal in size. The calvarium appears normal. The visualized paranasal sinuses and mastoid air cells are clear. No abnormal postcontrast enhancement seen. Impression: No acute abnormality seen. Mild chronic white matter changes. Reviewed, dictated and finalized at [facility]. Impression: No acute abnormality seen. Mild chronic white matter changes.
[2025-02-03 10:49] LABS: Estimated Glomerular Filt Rate > 60
--- OUTSIDE RECORDS SUMMARY | 2025-02-03 11:20 | XMS_ITS | Encounter Summary ---
Author Organization [facility] Address [address] [place] [address] Care Team Providers Care Shank Skinner Name Role Phone Karen Kowalski MD Primary Care Provider [phone] Encounter Details Date Type Department Care Team (Late st Contact Info) Description 08/19/2003 Outpatient Historical [facility] Family Medicine [address] [place] [address] Jhonatan Azul, DO [address] [address] Social History Tobacco Use Types Packs/Day Years Used Date Smoking Tobacco: Never Assessed Comments Unknown Sex and Gender Information Value Date Recorded Sex Assigned at Not on file Legal Sex Female 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
--- OUTSIDE RECORDS SUMMARY | 2025-02-03 11:20 | XMS_ITS | Encounter Summary ---
Author Organization [facility] Address [address] [place] [address] Care Team Providers Care Manager Pool Name Role Phone Karen Kowalski MD Primary Care Provider [phone] Encounter Details Date Type Department Care Team (Late st Contact Info) Description 10/16/2004 Outpatient Historical [facility] Family Medicine [address] [place] [address] Jhonatan Azul, DO [address] [address] Social History Tobacco Use Types Packs/Day Years Used Date Smoking Tobacco: Never Assessed Comments Unknown Sex and Gender Information Value Date Recorded Sex Assigned at Not on file Legal Sex Female 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
--- OUTSIDE RECORDS SUMMARY | 2025-02-03 11:20 | XMS_ITS | Referral Summary ---
Author Organization [facility] Address [address] [place] [address] Phone Care Team Providers Care Retail Office Manager Name Role Phone Rama Casillas DO Primary Care Provider [phone] Encounters Date Type Department Care Team Description 11/08/2024 Telephone [facility] Cardiology [address] [place] [address] Kyler Wright MD 11/08/2024 11:04 AM STATION SUPERVISOR - 11/08/2024 11:59 PM STATION SUPERVISOR Hospital Encounter [facility] [address] [place] [address] Occlusion of right carotid artery Discharge Disposition: Discharge to home or self care from Last 3 Months Allergies Active Allergy Reactions Criticality Noted Date Comments Morphine Unknown 03/21/2022 Medications albuterol HFA (PROVENTIL HFA,VENTOLIN HFA,PROAIR HFA) 90 mcg/actuation inhaler Inhale 2 puffs every 6 (six) hours as needed 0 Active ALPRAZolam (XANAX) 0.5 mg tablet Take 1 tablet (0.5 mg total) by mouth 9 Active atorvastatin (LIPITOR) 80 mg tablet Take 1 tablet (80 mg total) by mouth daily 0 Active buPROPion SR (WELLBUTRIN SR) 150 mg 12 hr tablet Take 1 tablet (150 mg total) by mouth 2 (two) times a day 1 Active cetirizine (ZyrTEC) 10 mg tablet Take 1 tablet (10 mg total) by mouth daily Active clopidogreL (PLAVIX) 75 mg tablet Take 1 tablet (75 mg total) by mouth daily 1 Active ipratropium-al buteroL (DUO-NEB) 0.5-2.5 mg/3 mL nebulizer solution Inhale 3 mL daily as needed 0 Active lisinopriL (PRINIVIL,ZEST RIL) 20 mg tablet Take 1 tablet (20 mg total) by mouth daily 0 Active sertraline (ZOLOFT) 100 mg tablet Take 1 tablet (100 mg total) by mouth daily 1 Active traMADoL (ULTRAM) 50 mg tablet 2 Active Anoro Ellipta 62.5-25 mcg/actuation blister with device 2 Active empagliflozin (JARDIANCE) 10 mg tablet Take 1 tablet (10 mg total) by mouth daily 30 tablet 11 3 Active Mounjaro 15 mg/0.5 mL pen injector INJECT 15 MG (0.5 ML) SUBCUTANEOUSLY WEEKLY 4 Active varenicline tartrate (CHANTIX) 1 mg tabletIndicati ons:Smoking Cessation Take 0.5 tablets (0.5 mg total) by mouth 2 (two) times a day for 7 days, THEN 1 tablet (1 mg total) 2 (two) times a day. Take with full glass of water.. 60 tablet 3 4 Active ezetimibe (ZETIA) 10 mg tablet Take 1 tablet (10 mg total) by mouth daily 30 tablet 11 4 025 Active Active Problems No known active problems Social History Tobacco Use Types Packs/Day Years Used Date Smoking Tobacco: Former Cigarettes Q uit: 11/21/2023 Comments Unknown Sex and Gender Information Value Date Recorded Sex Assigned at Not on file Legal Sex Female 1:20 PM STATION SUPERVISOR Gender Identity Not on file Sexual Orientation Not on file Last Filed Vital Signs Vital Sign Reading Time Taken Comments Blood Pressure 114/60 09/22/2024 11:46 AM STATION SUPERVISOR Pulse 74 09/22/2024 11:46 AM STATION SUPERVISOR Temperature - - Respiratory Rate - - Oxygen Saturation 95% 09/22/2024 11:46 AM STATION SUPERVISOR Inhaled Oxygen Concentration - - Weight 80 kg (176 lb 4.8 oz) 09/22/2024 11:46 AM STATION SUPERVISOR Height 157.5 cm (5' 2 ) 09/22/2024 11:46 AM STATION SUPERVISOR Body Mass Index 32.25 09/22/2024 11:46 AM STATION SUPERVISOR Plan of Treatment Not on file Procedures Procedure Name Priority Date/Time Associated Diagnosis Comments CTA NECK W CONTRAST Schedule Routine, Read Routine (OP Routine) 11/08/2024 11:21 AM STATION SUPERVISOR Occlusion of right carotid artery from Last 3 Months Results * CTA Neck W Contrast (11/08/2024 11:21 AM STATION SUPERVISOR) Anatomical Region Laterality Modality Head and Neck N/A Computed Tomogra phy 11/08/2024 3:17 PM STATION SUPERVISOR Narrative 11/08/2024 4:02 PM STATION SUPERVISOR EXAM DESCRIPTION: CTA NECK W CONTRAST REASON FOR STUDY: Carotid artery stenosis Follow up to an Ultrasound done at [place] that we have requested today Carotid artery stenosis and occlusion of right carotid artery TECHNIQUE: Axial dynamic scanning technique with dynamic contrast enhancement through the extra-cranial carotid and vertebral arteries. Multiplanar reconstruction. All images saved on PACS. All stenosis measurements are based on NASCET criteria. 3D MIP images rendered on scanning unit and reviewed at time of interpretation. Automated exposure control was used as a dose optimization technique for this examination. COMPARISON: None available. CONTRAST TYPE/DOSE: 100mL of IOVERSOL 350 MG IODINE/ML INTRAVENOUS SYRINGE injected via intravenous FINDINGS: There is mixed atherosclerotic changes in the aortic arch and origins of the great vessels. Portions of the left subclavian artery is obscured by dense venous contrast related artifact. The right common carotid artery has scattered mixed plaque and gcue-qu-cxevrrfu narrowing. Right carotid bifurcation/proximal cervical ICA heavily calcified plaque. Occluded right cervical ICA from its origin with reconstitution at the level of the distal cavernous segment which has a moderately diminished caliber when compared to the contralateral side. The left common carotid artery is patent. There is mixed, predominantly calcified plaque at the left carotid bifurcation and proximal cervical ICA with less than 50% stenosis by NASCET criteria. The remainder of the left cervical ICA is patent to the level of the skull base. Left vertebral artery origin with calcified plaque and mild narrowing. The remainder of the right vertebral artery is patent to the level of the skull base. The left vertebral artery origin is not well visualized. The V1, V2 and V3 segments are patent. Multifocal calcified plaque in the V4 segment with moderate to severe narrowing. Lung apices with pulmonary emphysema. No focal pneumonic consolidation. There are a few scattered pulmonary nodules on both sides, for example left upper lobe 0.3 cm (series 4, image 183) and right upper lobe lateral margin 0.5 cm (series 4, image 201). Indeterminate mediastinal lymph nodes, for example pretracheal 1 cm. Moderate to advanced cervical spine degenerative changes. IMPRESSION: 1. Occluded right internal carotid artery from its origin with reconstitution of the distal cavernous segment. 2. Left carotid bifurcation/proximal cervical ICA atherosclerotic changes with less than 50% stenosis. 3. Vertebral artery atherosclerotic changes as above. 4. The need for dedicated CTA of the head and MRI of the brain as clinically indicated. 5. Pulmonary emphysema. Recommend evaluation for annual lung cancer screening enrollment if the patient qualifies based on clinical factors and smoking history. 6. Indeterminate mediastinal lymph node. Recommend attention on dedicated contrast-enhanced chest CT. 7. Pulmonary nodules. The need for follow-up as discussed below. 8. Additional findings as above. 9. Previous imaging studies are not available for comparison. According to recent guidelines by the Fleischner Society, no follow up is required for incidental nodules less than 6 mm found on incomplete thoracic imaging on the basis of estimated low risk of malignancy. Note: These recommendations do not apply to patients with immunosuppression, or patients with known primary cancer. http://pubs.rsna.org/doi/pdf/10.1148/radiol.9021174988 The above findings discussed with the patient's nurse Ms. Susana RN via telephone by ut Dr. Dean Kemp on 11/08/2024 at 4:02 pm central standard time. THIS IS AN ELECTRONICALLY VERIFIED FINAL REPORT 11/08/2024 4:02 PM - Electronically signed by Tab Kemp D.O. AP: DIVINA Report ID: [id number] Reading Location: [place] [address] Procedure Note Tab Kemp, DO - 11/08/2024 EXAM DESCRIPTION: CTA NECK W CONTRAST REASON FOR STUDY: Carotid artery stenosis Follow up to an Ultrasound done at [place] that we have requested today Carotid artery stenosis and occlusion of right carotid artery TECHNIQUE: Axial dynamic scanning technique with dynamic contrastenhancement through the extra-cranial carotid and vertebral arteries. Multiplanar reconstruction. All images saved on PACS. All stenosis measurements arebased on NASCET criteria. 3D MIP images rendered on scanning unit andreviewed at time of interpretation. Automated exposure control was used as a dose optimization technique for this examination. COMPARISON: None available. CONTRAST TYPE/DOSE: 100mL of IOVERSOL 350 MG IODINE/ML INTRAVENOUSSYRINGE injected via intravenous FINDINGS: There is mixed atherosclerotic changes in the aortic arch and origins ofthe great vessels. Portions of the left subclavian artery is obscured bydense venous contrast related artifact. The right common carotid artery has scattered mixed plaque and ouzb-ag-ztnqougz narrowing. Right carotid bifurcation/proximal cervicalICA heavily calcified plaque. Occluded right cervical ICA from its originwith reconstitution at the level of the distal cavernous segment which has a moderately diminished caliber when compared to the contralateral side. The left common carotid artery is patent. There is mixed, predominantly calcified plaque at the left carotid bifurcation and proximal cervical ICA with less than 50% stenosis by NASCET criteria. The remainder of the left cervical ICA is patent to the level of the skull base. Left vertebral artery origin with calcified plaque and mild narrowing.The remainder of the right vertebral artery is patent to the level of theskull base. The left vertebral artery origin is not well visualized. The V1,V2 and V3 segments are patent. Multifocal calcified plaque in the V4 segment with moderate to severe narrowing. Lung apices with pulmonary emphysema. No focal pneumonic consolidation. There are a few scattered pulmonary nodules on both sides, for exampleleft upper lobe 0.3 cm (series 4, image 183) and right upper lobe lateralmargin 0.5 cm (series 4, image 201). Indeterminate mediastinal lymph nodes, for example pretracheal 1 cm. Moderate to advanced cervical spinedegenerative changes. IMPRESSION: 1. Occluded right internal carotid artery from its origin with reconstitution of the distal cavernous segment. 2. Left carotid bifurcation/proximal cervical ICA atheroscleroticchanges with less than 50% stenosis. 3. Vertebral artery atherosclerotic changes as above. 4. The need for dedicated CTA of the head and MRI of the brain asclinically indicated. 5. Pulmonary emphysema. Recommend evaluation for annual lung cancer screening enrollment if the patient qualifies based on clinical factorsand smoking history. 6. Indeterminate mediastinal lymph node. Recommend attention ondedicated contrast-enhanced chest CT. 7. Pulmonary nodules. The need for follow-up as discussed below. 8. Additional findings as above. 9. Previous imaging studies are not available for comparison. According to recent guidelines by the Fleischner Society, no follow up is required for incidental nodules less than 6 mm found on incompletethoracic imaging on the basis of estimated low risk of malignancy. Note: These recommendations do not apply to patients withimmunosuppression, or patients with known primary cancer. http://pubs.rsna.org/doi/pdf/10.1148/radiol.9295322632 The above findings discussed with the patient's nurse Billy Farooq telephone by ut Dr. Dean Kemp on 11/08/2024 at 4:02 pm central standardtime. THIS IS AN ELECTRONICALLY VERIFIED FINAL REPORT 11/08/2024 4:02 PM - Electronically signed by Tab Kemp D.O. AP: DIVINA Report ID: [id number] Reading Location: [place] [address] Kyler Wright MD IMG CT PROCEDURES Final Result from Last 3 Months Insurance MEDICARE [employer] [facility] MEDIC[facility] Address: [facility] [address] [place] [address] [address] [place] [id number] MEDICARE [employer] [facility] MEDIC[facility] Address: [address] [address] [place] [address] [employer] MEDICARE [employer] [facility] MEDICARE Address: [address] [address] [place] [address] Care Teams Retail Office Manager Relationship Specialty Start Date End Date Rama Casillas DO [address] [place] [address] [address] [place] [id number] PCP - General Family Medicine 12/23/23
--- OUTSIDE RECORDS SUMMARY | 2025-02-03 11:20 | XMS_ITS | Encounter Summary ---
Author Organization [facility] Address [address] [place] [address] Care Team Providers Care Spanish Linguist Name Role Phone Karen Kowalski MD Primary Care Provider [phone] Encounter Details Date Type Department Care Team (Late st Contact Info) Description 02/19/2003 Outpatient Historical [facility] Medicine [address] [place] [id number] Ralf Vega, DO [address] [facility] [place] [phone] Social History Tobacco Use Types Packs/Day Years Used Date Smoking Tobacco: Never Assessed Comments Unknown Sex and Gender Information Value Date Recorded Sex Assigned at Not on file Legal Sex Female 3:18 AM CIAIO LUMITE INJECTOR Gender Identity Not on file Sexual Orientation Not on file documented as of this encounter Plan of Treatment Not on file documented as of this encounter Visit Diagnoses Not on filedocumented in this encounter Additional Health Concerns Infection Onset Date Last Indicated Resolved Time R/O COVID-19 07/14/2020 07/14/2020 07/15/2020 2:16 AM CDT documented as of this encounter Care Teams Spanish Linguist Relationship Specialty Start Date End Date Karen Kowalski MD PCP - General Family Practice 09/11/18 05/30/22 documented as of this encounter
--- OUTSIDE RECORDS SUMMARY | 2025-02-03 11:20 | XMS_ITS | Encounter Summary ---
Author Organization [facility] Address [address] [place] [address] Care Team Providers Care General Operations Agent Name Role Phone Karen Kowalski MD Primary Care Provider [phone] Encounter Details Date Type Department Care Team (Late st Contact Info) Description 07/03/2004 Outpatient Historical [facility] Family Medicine [address] [place] [address] Jhonatan Azul, DO [address] [address] Social History Tobacco Use Types Packs/Day Years Used Date Smoking Tobacco: Never Assessed Comments Unknown Sex and Gender Information Value Date Recorded Sex Assigned at Not on file Legal Sex Female 3:18 AM CERTIFIED ORTHOPTIST Gender Identity Not on file Sexual Orientation Not on file documented as of this encounter Plan of Treatment Not on file documented as of this encounter Visit Diagnoses Not on filedocumented in this encounter Additional Health Concerns Infection Onset Date Last Indicated Resolved Time R/O COVID-19 07/14/2020 07/14/2020 07/15/2020 2:16 AM CDT documented as of this encounter Care Teams General Operations Agent Relationship Specialty Start Date End Date Karen Kowalski MD PCP - General Family Practice 09/11/18 05/30/22 documented as of this encounter
--- OUTSIDE RECORDS SUMMARY | 2025-02-03 11:20 | XMS_ITS | Clinical Summary ---
Author Organization [facility] Address [address] [place] [address] Care Team Providers Care Rate Quoting Operator Name Role Phone Rama Casillas DO Primary Care Provider [phone] Source Comments [facility] [employer],non-owned Affiliates and Associated Physician Practices is amultiple site organization consisting of ambulatory clinics and hospital sitesin [place], [place], [place] and [place]. This disclosure is being madepursuant to the Care Everywhere program and may not contain all information available regarding this patient. Last updated 18.[facility] [employer] Allergies Active Allergy Reactions Criticality Noted Date Comments Morphine Unknown 03/21/2022 wired , hallucinations Medications * Be aware that medications may not be up to date on this document. Alwaysverify current medications with the patient. Medication Sig Dispensed Refills Start Date End Date Status buPROPion XL 24hr (Wellbutrin-XL) 150 MG tabletIndications: Major Depressive Disorder every morning Take day of surgery Reasons: Major Depressive Disorder 01/03/2024 Active cetirizine (ZyrTEC) 10 MG tabletIndications: Seasonal Allergic Rhinitis Take 1 tablet by mouth once daily May take day of surgery Reasons: Hayfever Active clopidogrel (plaVIX) 75 MG tabletIndications: DVT PER PATIENT'S REPORT Hold 5 days prior to surgery Reasons: DVT PER PATIENT'S REPORT 01/03/2024 Active sertraline (Zoloft) 100 MG tabletIndications: Major Depressive Disorder Take day of surgery Reasons: Major Depressive Disorder 03/05/2024 Active Mounjaro 5 MG/0.5ML injectionIndicatio ns:WT LOSS Hold 5-7 days prior to surgery Reasons: WT LOSS 01/08/2024 Active albuterol-ipratrop ium (Duo-Neb) 0.5-2.5 (3) MG/3ML nebulizer solutionIndication s:Chronic Obstructive Pulmonary Disease Inhale 3 mL by mouth as needed for Shortness of Breath or Wheezing Reasons: Chronic Obstructive Lung Disease Active umeclidinium-vilan terol (Anoro Ellipta) 62.5-25 MCG/ACT inhalerIndications :Chronic Obstructive Pulmonary Disease Inhale 1 (one) puff by mouth once daily Reasons: Chronic Obstructive Lung Disease Active ALBUTEROL SULFATE INIndications:SOB OR WHEEZING Inhale by mouth every 6 hours as needed May use day of surgery and bring inhaler day of surgery Reasons: SOB OR WHEEZING Active atorvastatin (Lipitor) 80 MG tabletIndications: Hyperlipidemia Take 1 tablet by mouth once daily Hold day of surgery Reasons: High Amount of Fats in the Blood Active aspirin EC (Ecotrin) 81 MG tabletIndications: HEART HEALTH Take 1 tablet by mouth once daily Hold 5 days prior to surgery Reasons: HEART HEALTH Active vitamin D3 (Cholecalciferol) 25 MCG (1000 UNITS) tabletIndications: Vitamin D Deficiency Take 2 (two) tablets by mouth once daily 30 tablet 03/23/2024 Active ascorbic acid (Vitamin C) 500 MG tabletIndications: Ascorbic Acid Deficiency Take 1 (one) tablet by mouth once daily 30 tablet 03/23/2024 Active pregabalin (Lyrica) 75 MG capsuleIndications :Neuropathic Pain Take 1 (one) capsule by mouth 2 times daily 60 capsule 03/23/2024 Active naloxone HCl (Narcan) 4 MG/0.1ML nasal sprayIndications:O pioid Overdose [place] 1 (one) spray into the nose as needed (May repeat every 2 min in alternating nostrils until emergency medical help arrives for overdose) 2 Each 03/23/2024 Active docusate sodium (Colace) 100 MG capsuleIndications :Constipation Take 1 (one) capsule by mouth 2 times daily 28 capsule 03/23/2024 Active ondansetron (Zofran) 8 MG tabletIndications: Postoperative Nausea and Vomiting Take 1 (one) tablet by mouth every 8 hours as needed for Nausea/Vomiting 30 tablet 03/23/2024 Active oxyCODONE-acetamin ophen (Percocet) 10-325 MG tabletIndications: Pain,MODERATE TO SEVERE PAIN Take 1 (one) tablet by mouth every 6 hours as needed for Pain 42 tablet 03/23/2024 Active bisacodyl EC (Dulcolax) 5 MG tabletIndications: Constipation Take 5 mg by mouth once daily as needed for Constipation. 1-3 TABS DAILY IN SINGLE DOSE PRN CONSTIPATION Indications: Constipation 03/25/2024 Active acetaminophen (TYLENOL) 500 MG tabletIndications: Pain Take 500 mg by mouth every 6 hours as needed for Pain. Indications: Pain 03/26/2024 Active amoxicillin (Amoxil) 500 MG capsule Take 4 (four) capsules by mouth 1 Hour prior to Dental Appointment 4 capsule 11 06/17/2024 Active celecoxib (CeleBREX) 200 MG capsuleIndications :Status post surgery TAKE 1 CAPSULE BY MOUTH DAILY FOR ACUTE PAIN 90 capsule 07/07/2024 Active Active Problems Problem Noted Date Diagnosed Date Arthritis of right hip 03/22/2024 Status post surgery 03/22/2024 Social History Tobacco Use Types Packs/Day Years Used Date Smoking Tobacco: Former Cigarettes Q uit: 11/2023 Smokeless Tobacco: Never Tobacco Cessation:Counseling Given: Not Answered Alcohol Use Standard Drinks/Week Comments Yes 0 (1 standard drink = 0.6 oz pur e alcohol) vodka 1/2 pint per night OASIS D0700: Social Isolation Answer Da te Recorded Frequency of experiencing loneliness or isolatio n Never 04/20/2024 OASIS A1250: Transportation Answer Date Recorded Lack of Transportation (Medical) No 04/20/2024 Lack of Transportation (Non-Medical) No 04/20/2024 Patient Unable or Declines to Respond No 04/20/2024 OASIS B1300: Health Literacy Answer Santos e Recorded Frequency of needing help to read materials from doctor or pharmacy Never 04/20/2024 AUDIT-C Answer Date Recorded Q1: How often do you have a drink containing alcohol? 4 or more times a week 03/22/2024 Q2: How many drinks containi ng alcohol do you have on a typical day when you are drinking? 3 or 4 Q3: How often do you have si x or more drinks on one occasion? Never 03/22/2024 Overall Financial Resource Strain (CARDIA) Answe r Date Recorded How hard is it for you to pa y for the very basics like food, housing, medical care, and heating? Not hard at all 03/23/2024 PHQ-2 Answer Date Recorded Patient Health Questionnaire-2 Score 0 06/17/2024 [facility] - Occupational Stress Questionnaire Answer Date Recorded Do you feel stress - tense, restless, nervous, or anxious, or unable to sleep at night because your mind is troubled all the time - these days? Not at all 03/23/2024 Hunger Vital Sign Answer Date Recorded Within the past 12 months, y ou worried that your food would run out before you got the money to buy more. Never true 03/23/20 24 Within the past 12 months, t he food you bought just didn't last and you didn't have money to get more. Never true 03/23/2024 PRAPARE - Transportation Answer Date Re corded In the past 12 months, has l ack of transportation kept you from medical appointments or from getting medications? No 05/2024 In the past 12 months, has l ack of transportation kept you from meetings, work, or from getting things needed for daily living? No 03/23/2024 Housing Stability Vital Sign Answer Santos e Recorded In the last 12 months, was t here a time when you were not able to pay the mortgage or rent on time? No 03/23/2024 In the last 12 months, how many places have you lived? 1 03/23/2024 In the last 12 months, was t here a time when you did not have a steady place to sleep or slept in a mcc (including now)? No 03/23/2024 Sex and Gender Information Value Date Recorded Sex Assigned at Not on file Gender Identity Not on file Sexual Orientation Not on file Last Filed Vital Signs Vital Sign Reading Time Taken Comments Blood Pressure 122/66 04/20/2024 11:10 AM CDT Pulse 68 04/20/2024 11:10 AM CDT Temperature 36.6 C (97.8 F) 04/20/2024 11:10 AM CDT Respiratory Rate 17 04/20/2024 11:10 AM CDT Oxygen Saturation 99% 04/20/2024 11:10 AM CDT Inhaled Oxygen Concentration - - Weight 84.4 kg (186 lb) 06/17/2024 1:35 PM CDT Height 152.4 cm (5') 06/17/2024 1:35 PM CDT Body Mass Index 36.33 06/17/2024 1:35 PM CDT Plan of Treatment Health Maintenance Due Date Last Done Comments BONE DENSITY TESTING 1955 COLOGUARD (AGES 45-75) - COLON CA SCREENING 1955 COLON MONITORING 1955 COLONOSCOPY - COLON CA SCREENING 1955 CT COLONOGRAPHY - COLON CA SCREENING 1955 Colorectal Cancer Screening 1955 FIT - COLON CA SCREENING 1955 FLEX SIG - COLON CA SCREENING 1955 DTAP/TDAP/TD VACCINES (1 - Tdap) 1974 PNEUMOCOCCAL VACCINE 50+ (1 of 1 - PCV) 2005 ZOSTER VACCINE (1 of 2) 2005 MAMMOGRAM 08/17/2021 08/17/2019, 11/2018, 08/17/2019 COVID-19 VACCINE ( - season) 2024 INFLUENZA VACCINE (#1) 2024 9, 08/03/2018, 09/11/2017, Additional history exists DEPRESSION SCREENING 11/17/2024 04/07/2024 MEDICARE AWV CALENDAR YEAR 2024 SCREENING FOR DIABETES 03/23/2027 03/23/2024, 2023 Respiratory Syncytial Virus (RSV) Vaccine Pt: or over 60 yrs (1 - 1-dose 75+ series) 2030 HEPATITIS C SCREENING Completed 08/29/2015 HEPATITIS B VACCINE Aged Out No longe r eligible based on patient's age to complete this topic HIB VACCINE Aged Out No longer eligi ble based on patient's age to complete this topic HPV VACCINE Aged Out No longer eligi ble based on patient's age to complete this topic MENINGOCOCCAL (Group B) VACCINE SHARED DECISION-MAKING Aged Out No longer eligible based on patient's age to complete this topic MENINGOCOCCAL GROUPS A/C/Y/W VACCINE Aged Out No longer eligible based on patient's age to complete this topic Medical Devices Implanted Type Area Mine Patrol Device Identifier Shelf Expiration Date Model / Serial / Lot Shell Actb 52mm Hip 5 Screw Hl Clstr Implanted:Qty: 1 on 03/22/2024 by Brianne Oconnell MD at [facility] Right: Hip [employer] 02/11/2029 702-04-52E / / [id number] Ins Trdnt X3 10 D Pe Implanted:Qty: 1 on 03/22/2024 by Brianne Oconnell MD at [facility] Right: Hip [employer] 01/03/2029 723-10-36E / / [id number] Screw 6.5mm 20mm Lopro Hex Trdnt Ii Strl Implanted:Qty: 1 on 03/22/2024 by Brianne Oconnell MD at [facility] Right: Hip [employer] 12/11/2028 [id number] / / [id number] Impl Hip 36mm Nk Insg 4 Hpstm Hi Ofst Implanted:Qty: 1 on 03/22/2024 by Brinane Oconnell MD at [facility] Right: Hip [employer] 02/26/2028 [id number] / / [id number] Head Fem +0mm Ofst Tpr 36mm Hip Blx D Implanted:Qty: 1 on 03/22/2024 by Brianne Oconnell MD at [facility] Right: Hip [employer] 10/12/2028 6570-0-136 / / [id number] Explanted Type Area Mine Patrol Device Identifier Shelf Expiration Date Model / Serial / Lot Head Fem +0mm Ofst Tpr 36mm Hip Blx D Explanted:Qty: 1 on 03/22/2024 by Brianne Oconnell MD at [facility] Right: Hip [employer] 11/13/2025 6570-0-136 / / [id number] Procedures Procedure Name Priority Date/Time Associated Diagnosis Comments BASIC METABOLIC PANEL (CALCIUM TOTAL) AM Draw 03/23/2024 4:33 AM CDT Status post surgery from Last 3 Months or Most Recently Relevant to Health Maintenance Results * (ABNORMAL) BASIC METABOLIC PANEL (CALCIUM TOTAL) (03/23/2024 4:33 AM CDT) Glucose 102 70 - 105 mg/dL 03/23/2024 5:18 AM CDT [facility] Sodium 133(L) 136 - 145 mmol/L 03/23/2024 5:18 AM CDT [facility] Potassium 4.0 3.5 - 5.1 mmol/L 03/23/2024 5:18 AM CDT [facility] Chloride 105 98 - 107 mmol/L 03/23/2024 5:18 AM CDT [facility] CO2 21(L) 22 - 29 mmol/L 03/23/2024 5:18 AM CDT [facility] Calcium 8.1(L) 8.4 - 10.4 mg/dL 03/23/2024 5:18 AM CDT [facility] Anion Gap 7 6 - 16 mmol/L 03/23/2024 5:18 AM CDT [facility] BUN 14 7 - 26 mg/dL 03/23/2024 5:18 AM CDT [facility] Creatinine 0.70 0.57 - 1.11 mg/dL 03/23/2024 5:18 AM CDT [facility] eGFR by CKD-EPI >90 >=90 mL/min/1.7 3 m2 03/23/2024 5:18 AM CDT [facility] Blood BLOOD SPECIMEN / Unknown Lab Venipuncture / Unknown 03/23/2024 4:33 AM CDT 03/23/2024 5:01 AM CDT Brianne Oconnell MD LAB - CHEMISTRY MOHAMUD Wahl Organization Address City/State/ZIP Co de Phone Number [facility] [address] [phone] from Last 3 Months or Most Recently Relevant to Health Maintenance Advance Directives Documents on File Type Date Recorded 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 Do not modify or discontinue any currently active code status orders. * Full Code Date Activated Date Inactivated Comments 03/22/2024 4:44 PM 03/24/2024 4:51 PM Care Teams Rate Quoting Operator Relationship Specialty Start Date End Date Rama Casillas DO [address] [place] [address] PCP - General Family Medicine 01/01/24
--- OUTSIDE RECORDS SUMMARY | 2025-02-03 11:20 | XMS_ITS | Clinical Summary ---
Author Organization [facility] Address [address] [place] [address] Phone Care Team Providers Care Forest Botany Instructor Name Role Phone Rama Casillas DO Primary Care Provider [phone] Allergies Active Allergy Reactions Criticality Noted Date [...] Active Active Problems No known active problems Encounters Date Type Department Care Team Description 11/08/2024 11:04 AM SKIN GRADER - 11/08/2024 11:59 PM SKIN GRADER Hospital Encounter [facility] [address] [place] [address] Occlusion of right carotid artery Discharge Disposition: Discharge to home or self care 11/08/2024 Telephone [facility] Cardiology [address] [place] [id number] Kyler Wright MD from Last 3 Months Surgical History Surgery Date Site/Laterality Comments CHOLECYSTECTOMY COLECTOMY BREAST LUMPECTOMY Bilateral Medical History Medical History Date Comments Hyperlipidemia Hypertension COPD (chronic obstructive pulmonary disease) (HC C) Anxiety IBS (irritable bowel syndrome) Family History Medical History Relation Name Comments Depression Father Depression Mother Relation Name Status Comments Father Mother Social History Tobacco Use Types Packs/Day Years Used Date Smoking Tobacco: Former Cigarettes Q uit: 11/21/2023 Comments Unknown Sex and Gender Information Value Date Recorded Sex Assigned at Not on file Legal Sex Female 1:20 PM SKIN GRADER Gender Identity Not on file Sexual Orientation Not on file Obstetrics History Last Filed Vital Signs Vital Sign Reading Time Taken Comments Blood Pressure 114/60 09/22/2024 11:46 AM SKIN GRADER Pulse 74 09/22/2024 11:46 AM SKIN GRADER Temperature - - Respiratory Rate - - Oxygen Saturation 95% 09/22/2024 11:46 AM SKIN GRADER Inhaled Oxygen Concentration - - Weight 80 kg (176 lb 4.8 oz) 09/22/2024 11:46 AM SKIN GRADER Height 157.5 cm (5' 2 ) 09/22/2024 11:46 AM SKIN GRADER Body Mass Index 32.25 09/22/2024 11:46 AM SKIN GRADER Plan of Treatment Health Maintenance Due Date Last Done Comments Colon Cancer Screening-Colonoscopy 1955 Depression Screening 1955 Fall Risk Assessment 1955 Hepatitis C Screening 1955 Osteoporosis Screening-Bone Density Scan 1955 DTaP/Tdap/Td Vaccine (1 - Tdap) 1966 Hepatitis B Screening 1973 Zoster Vaccine (1 of 2) 2005 Well Visit 65+ 2020 Breast Cancer Screening-Mammogram 08/17/2020 019, 08/17/2019 Pneumococcal vaccine 65+ (2 of 2 - PCV) 08/10/2021 08/10/2020, 09/21/2011 Covid-19 Vaccine (3 - 2023-2 5 season) 2024 09/25/2021, 01/24/2021 Influenza Vaccine (#1) 2024 , 08/09/2019, 08/03/2018, Additional history exists Procedures Procedure Name Priority Date/Time Associated Diagnosis Comments CTA NECK W CONTRAST Schedule Routine, Read Routine (OP Routine) 11/08/2024 11:21 AM SKIN GRADER Occlusion of right carotid artery from Last 3 Months Results * CTA Neck W Contrast (11/08/2024 11:21 AM SKIN GRADER) Anatomical Region Laterality Modality Head and Neck N/A Computed Tomogra phy 11/08/2024 3:17 PM SKIN GRADER Narrative 11/08/2024 4:02 PM SKIN GRADER EXAM DESCRIPTION: CTA NECK W CONTRAST REASON FOR STUDY: Carotid artery stenosis Follow up to an Ultrasound done at [facility] that we have requested today Carotid artery [...] carotid artery has scattered mixed plaque and wjnk-eq-glsebyqc narrowing. Right carotid bifurcation/proximal cervical ICA heavily [...] immunosuppression, or patients with known primary cancer. http://pubs.rsna.org/doi/pdf/10.1148/radiol.[email or web address] The above findings discussed with the patient's nurse Ms. Susana RN via telephone by ar Dr. Dean Kemp on 11/08/2024 at 4:02 pm central standard time. THIS IS AN ELECTRONICALLY VERIFIED FINAL REPORT 11/08/2024 4:02 PM - Electronically signed by Tab Kemp D.O. AP: AP Report ID: [id number] Reading Location: [place] [address] Procedure Note Tab Kemp, DO - 11/08/2024 EXAM DESCRIPTION: CTA NECK W CONTRAST REASON FOR STUDY: Carotid artery stenosis Follow up to an Ultrasound done at [facility] that we have requested today Carotid artery [...] carotid artery has scattered mixed plaque and hsvn-jl-ffcyetcm narrowing. Right carotid bifurcation/proximal cervicalICA heavily calcified [...] withimmunosuppression, or patients with known primary cancer. http://pubs.rsna.org/doi/pdf/10.1148/[email or web address] The above findings discussed with the patient's nurse Billy Farooq telephone by ar Dr. Dean Kemp on 11/08/2024 at 4:02 pm central standardtime. THIS IS AN ELECTRONICALLY VERIFIED FINAL REPORT 11/08/2024 4:02 PM - Electronically signed by Tab Kemp D.O. AP: DIVINA Report ID: [id number] Reading Location: [place] [address] Kyler Wright MD IMG CT PROCEDURES Final Result from Last 3 Months Insurance MEDICARE [place] [address] [place] [address] MEDICARE SOLUT[employer] Member Subscriber Plan / Payer (Ef fective 2022-Present) Name:Nicolasa Campo Relation to Subscriber:Self Name:Nicolasa Campo Payer ID:[id number] (NAIC) Type:[facility] MEDICARE Address: [place] [phone] [facility] MEDICARE SOLUTIONS Care Teams Forest Botany Instructor Relationship Specialty Start Date End Date Rama Casillas DO [facility] [address] [address] PCP - General Family Medicine 12/23/23
--- OUTSIDE RECORDS SUMMARY | 2025-02-03 11:20 | XMS_ITS | Continuity of Care Document ---
Author Organization [facility] Address [address] [place] [address] Phone Care Team Providers Care Community Relations Manager Name Role Phone Karen Espinoza MD Unavailable Unavailable Allergies, Adverse Reactions, Alerts Substance Reaction Status Criticality No Known Allergies Active No Inform ation Advance Directives Directive Yes / No Effective Date File Name No Information Encounters Encounter Description Practice Location Reason(s) For Visit Diagnoses Date Provider Providers Copied on Encounter [facility] [address], [place], [place], [address] , [place] tel: [phone] [facility] No Information Alexis Jones. [address], [place], [place], [address] . tel: [phone] [facility] [address], [place], [place], [address] , [place] tel: [phone] [facility] Chronic obstructive pulmonary disease, unspecified COPD typeRecurrent major depressive disorder, in partial remissionHyperlipidem ia, unspecified hyperlipidemia typeTobacco abuseBMI 45.0-49.9, adultMorbid obesity with body mass index of 45.0-49.9 in adultGastroesophageal reflux disease without esophagitisConstipati on, unspecified constipation type 6 Alexis Jones. [address], [place], [place], [address] . tel: [phone] Referring Provider: [address], [place], [address] . tel:[phone] [facility] [address], [place], [place], [address] , tel: [phone] [facility] IM Age-related nuclear cataract, unspecified eye 6 Alexis Jones. [address], [place], [place], [address] . tel: [phone] [facility] [address], [place], [place], [address] , tel: [phone] [facility] Er Follow up (chief complaint) COPD exacerbationTobacco abuse [address], [place], [place], [address] . tel: [phone] Referring Provider: [address], [place], [address] . tel:[phone] [facility], [address], [place], [place], [address] , tel: [phone] [facility] Chronic obstructive pulmonary disease, unspecified COPD typeDepression, major, recurrent, in partial remissionEssential hypertensionOther hyperlipidemiaAllergi c rhinitis, unspecifiedScreen for STD (sexually transmitted disease)Encounter for immunization [address], [place], [place], [address] . tel: [phone] Referring Provider: [address], [place], [address] . tel:[phone] [facility], [address], [place], [place], [address] , tel: [phone] [facility] COPD (chronic obstructive pulmonary disease)Lumbar degenerative disc diseaseMajor depression, recurrentTobacco abuseHypertensionHype rlipidemiaFatigueAlco hol dependenceBMI 40.0-44.9, adultScreening for breast cancerScreening for depression [address], [place], [place], [address] . tel: [phone] Referring Provider: [address], [place], [address] . tel:[phone] Family History Family Member Type Diagnosis Age At Onset Close relative Problem (finding) Diabetes mellitus Father Problem (finding) depression Sister Problem (finding) depression Mother Problem (finding) coronary arterioscleros is Mother Problem (finding) Obesity Brother Problem (finding) depression Father Problem (finding) Allergies Mother Problem (finding) depression Brother Problem (finding) learning disability Brother Problem (finding) attention defi cit hyperactivity disorder Brother Problem (finding) malignant neoplasm of l mychal Immunizations Vaccine Date Status Comments Influenza, seasonal, injectable (3 yrs or older) administered Source: New Immunization Record Payers Payer name Insurance type Covered alliance party ID Authoriza tion(s) [email or web address] [id number] [email or web address] [id number] Social History Type Description Quantity Date Captured Comments Sex Female Smoking Status No Information Chief Complaint And Reason For Visit No Information Reason For Referral Reason For Referral No Information History Of Present Illness Encounter Date Complaint History Of Prese nt Illness Er Follow up (comments) here for follow-up after recent hospitalization 10/23 through 10/24 for COPD exacerbation. patient discharged on a Medrol Dosepak. Still with significant wheezing. She is not treated with antibiotics. She continues to complain of shortness of breath, dyspnea on exertion, cough. started Medrol Dosepak last night, only taking half tabs since she was released in the evening. Denies fevers or chills. No significant nasal congestion or rhinorrhea. Cough productive of yellow mucus. No nausea vomiting diarrhea or abdominal symptoms. Symptoms started on Friday and progressively worsening. Of note, she is not using her Symbicort, nephropathy with a rescue inhaler. Previously on Advair and did not illnesses equivalent medication Er Follow up Functional Status Date Functional Assessmen t No Information Instructions Date Instruction Additional Infor kevin motivated to quit sm oking; sent nicotine patches Related to Tobacco abuse change to prednisone taper, continue nebulizer treatments, azithromycin. Call if not improving; still with significant wheezing on exam. Nebulizer treatment today. Please call medical equipment company for clarification on use of home machine Related to COPD exacerbation Assessments Type Assessment Date No Information Patient Care Teams Name Effective Dates (start - stop) Status Members No Information
--- OUTSIDE RECORDS SUMMARY | 2025-02-03 11:20 | XMS_ITS | Encounter Summary ---
Author Organization [facility] Address [address] [place] [address] Care Team Providers Care Occupational Health Nurse Name Role Phone Karen Kowalski MD Primary Care Provider [phone] Encounter Details Date Type Department Care Team (Late st Contact Info) Description 12/14/2002 Outpatient Historical [facility] Family Medicine [address] [place] [address] Jhonatan Azul, DO [address] [address] Social History Tobacco Use Types Packs/Day Years Used Date Smoking Tobacco: Never Assessed Comments Unknown Sex and Gender Information Value Date Recorded Sex Assigned at Not on file Legal Sex Female 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
--- OUTSIDE RECORDS SUMMARY | 2025-02-03 11:20 | XMS_ITS | Encounter Summary ---
Author Organization [facility] Address [address] [place] [address] Care Team Providers Care 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 Relationship Specialty Start Date End Date Karen Kowalski MD PCP - General Family Practice 09/11/18 05/30/22 documented as of this encounter
--- OUTSIDE RECORDS SUMMARY | 2025-02-03 11:20 | XMS_ITS | Encounter Summary ---
Author Organization [facility] Address [address] [place] [address] Care Team Providers Care Product Director Name Role Phone Karen Kowalski MD Primary Care Provider [phone] Encounter Details Date Type Department Care Team (Late st Contact Info) Description 02/21/2003 Outpatient Historical [facility] Medicine [address] [place] [phone] Ralf Vega, DO [address] [facility] [place] [phone] Social History Tobacco Use Types Packs/Day Years Used Date Smoking Tobacco: Never Assessed Comments Unknown Sex and Gender Information Value Date Recorded Sex Assigned at Not on file 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
--- OUTSIDE RECORDS SUMMARY | 2025-02-03 11:20 | XMS_ITS | Data Portability ---
Author Organization [place] - [facility], Main Office Address [address] [place] [address] Assessment Encounter Date Assessment Date Assessment LastModified by Organization Details LastModified Time 12/04/2023 12/04/2023 This note is dictated and transcribed by [employer]. County Engineer variances may occur. Despite proofreading, typographical errors may occur. Not available 12/04/2023 15:51:08 06/03/2024 06/03/2024 This note is dictated and transcribed by [employer]. County Engineer variances may occur. Despite proofreading, typographical errors may occur. Occasional wrong-word or 'nxpmf-m-olfz' substitutions may have occurred due to the inherent limitations of voice recording. Read the chart carefully and recognize, using context, where substitutions have occurred. Not available 06/16/2024 14:12:53 09/02/2024 09/02/2024 This note is dictated and transcribed by [employer]. County Engineer variances may occur. Despite proofreading, typographical errors may occur. Occasional wrong-word or 'rabnu-f-eugb' substitutions may have occurred due to the inherent limitations of voice recording. Read the chart carefully and recognize, using context, where substitutions have occurred. Not available 09/03/2024 12:11:01 12/02/2024 12/02/2024 This note is dictated and transcribed by [employer]. County Engineer variances may occur. Despite proofreading, typographical errors may occur. Occasional wrong-word or 'lcfms-a-qqdm' substitutions may have occurred due to the inherent limitations of voice recording. Read the chart carefully and recognize, using context, where substitutions have occurred. Not available 12/06/2024 10:31:14 Plan of Treatment Reminders Order Date Submit Date Provider Last Modified By Organization Details Last Modified Time Details Appointments Establish ed Patient 15 2024 03:00P M Romulo Lockett DPM Not available Not available Not available Lab None recorded. Referral vascular surgeon referral - put in just in case its needed if [facility] 2023 024 [email or web address] Andreas Guzman, [address], [address], [place], [address], 01/29/2024 08:51:14 Procedures None recorded. Surgeries None recorded. Imaging US, duplex, arterial, lower extremity 2024 025 [email or web address] [facility] [address], [place], [address], 12/28/2024 11:16:52 Medication Orders None recorded. Patient TargetsNo targets recorded. Patient InstructionsNo instructions recorded. 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 Procedures Surgical History Date Name Laterality Status Provider Name and Address Organization Details Recorded Time 5 Nail Debridement completed Romulo Lockett DPM [address], [place], [address], [employer] 12/06/2024 10:31:09 4 Nail Debridement completed Romulo Lockett DPM [address], [place], [address], [employer] 09/03/2024 12:11:25 4 Nail Debridement completed Romulo Lockett DPM [address], [address], [place], [address], [facility] [employer] 06/16/2024 14:12:35 4 Nail Debridement completed Romulo Lockett DPM [address], [address], [place], [address], [employer] 03/08/2024 09:40:04 3 Nail Debridement completed Romulo Lockett DPM [address], [address], [place], [address], [facility] [employer] 10/30/2023 08:53:25 3 Nail Debridement completed Romulo Lockett DPM [address], [address], [place], [address], [facility] [employer] 06/05/2023 14:29:14 3 Nail Debridement completed Romulo Lockett DPM [address], [address], [place], [address], [facility] [employer] 03/13/2023 15:23:50 Imaging Results None recorded. Procedure Notes None recorded. Medical Equipment None Reported. Allergies No known drug allergies Medications Name Sig Start Date Stop Date Status Note LastModified by Organization Details LastModified Time celecoxib 200 mg capsule active Not Available Not Available Not Available amoxicillin 500 mg capsule active Not Available Not Available Not Available atorvastatin 80 mg tablet active Not Available Not Available Not Available ipratropium 0.5 mg-albuterol 3 mg (2.5 mg base)/3 mL nebulization soln active Not Available Not Available Not Available azithromycin 250 mg tablet active Not Available Not Available Not Available ondansetron HCl 8 mg tablet active Not Available Not Available Not Available lisinopril 20 mg tablet active Not Available Not Available Not Available sertraline 100 mg tablet active Not Available Not Available Not Available clopidogrel 75 mg tablet active Not Available Not Available Not Available tramadol 50 mg tablet active Not Available Not Available No t Available lisinopril 10 mg tablet active Not Available Not Available Not Available gabapentin 300 mg capsule active Not Available Not Available Not Available methylpredni solone 4 mg tablets in a dose pack TAKE 6 TABLETS ON DAY 1 DIRECTED ON PACKAGE AND DECREASE BY 1 TAB EACH DAY FOR A TOTAL OF 6 DAYS active Not Available Not Available No t Available albuterol sulfate HFA 90 mcg/actuatio n aerosol inhaler active Not Available Not Available Not Available fluticasone propionate 50 mcg/actuatio n nasal spray,suspen donald active Not Available Not Available Not Available bupropion HCl XL 150 mg 24 hr tablet, extended release active Not Available Not Available Not Available pregabalin 75 mg capsule active Not Available Not Available Not Available varenicline tartrate 1 mg tablet active Not Available Not Available No t Available Anoro Ellipta 62.5 mcg-25 mcg/actuatio n powder for inhalation active Not Available Not Available N ot Available Jardiance 10 mg tablet active Not Available Not Available No t Available naloxone 4 mg/actuation nasal spray active Not Available Not Available Not Available Mounjaro 7.5 mg/0.5 mL subcutaneous pen injector INJECT 7.5 MG (0.5 ML) SUBCUTANEOU SLY WEEKLY active Not Available Not Available N ot Available Mounjaro 5 mg/0.5 mL subcutaneous pen injector INJECT 5MG UNDER THE SKIN ONCE WEEKLY active Not Available Not Available No t Available Mounjaro 15 mg/0.5 mL subcutaneous pen injector INJECT 15 MG (0.5 ML) SUBCUTANEOU SLY WEEKLY active Not Available Not Available N ot Available Mounjaro 10 mg/0.5 mL subcutaneous pen injector INJECT 10 MG SUBCUTANEOU SLY ONCE A WEEK active Not Available Not Available No t Available Mounjaro 12.5 mg/0.5 mL subcutaneous pen injector INJECT 12.5 MG (0.5 ML) SUBCUTANEOU SLY WEEKLY active Not Available Not Available N ot Available M[employer]jaro 2.5 mg/0.5 mL subcutaneous pen injector active Not Available Not Available Not Available Vitals Date Recorded Body height Body mass index (BMI) Body weight Heart rate Respiratory rate Oxygen saturation Oxygen saturation in Arterial blood by Pulse oximetry Systolic blood pressure Diastolic blood pressure Provider Name and Address Organization Details Last Updated DateTime 4 152.4 cm 42.6 kg/m2 06303.1 4 g 78 /min 14 /min 98 % 98 % 111 mm[Hg] 63 mm[Hg] Annie Whaley [employer] [facility] 4 15:31:41 Date Recorded Body height Body mass index (BMI) Body weight Heart rate Respiratory rate Oxygen saturation Oxygen saturation in Arterial blood by Pulse oximetry Systolic blood pressure Diastolic blood pressure Provider Name and Address Organization Details Last Updated DateTime 4 152.4 cm 42.6 kg/m2 23314.1 4 g 82 /min 14 /min 98 % 98 % 109 mm[Hg] 54 mm[Hg] Annie Whaley [employer] [facility] 4 16:28:48 Date Recorded Body height Body mass index (BMI) Body weight Heart rate Respiratory rate Body temperature Oxygen saturation Oxygen saturation in Arterial blood by Pulse oximetry Systolic blood pressure Diastolic blood pressure Provider Name and Address Organization Details Last Updated DateTime 4 152.4 cm 42.6 kg/m2 54633.1 4 g 68 /min 16 /min 97.2 [degF] 97 % 97 % 140 mm[Hg] 82 mm[Hg] Michelle Kidd [employer] 4 16:04:24 Date Recorded Body height Body mass index (BMI) Body weight Heart rate Respiratory rate Oxygen saturation Oxygen saturation in Arterial blood by Pulse oximetry Systolic blood pressure Diastolic blood pressure Provider Name and Address Organization Details Last Updated DateTime 4 152.4 cm 42.6 kg/m2 74824.1 4 g 65 /min 14 /min 97 % 97 % 123 mm[Hg] 53 mm[Hg] Annie Whaley [employer] [facility] 4 16:08:12 Date Recorded Body height Body mass index (BMI) Body weight Heart rate Respiratory rate Oxygen saturation Oxygen saturation in Arterial blood by Pulse oximetry Systolic blood pressure Diastolic blood pressure Provider Name and Address Organization Details Last Updated DateTime 5 152.4 cm 42.6 kg/m2 84771.1 4 g 77 /min 14 /min 98 % 98 % 139 mm[Hg] 79 mm[Hg] Annie Whaley [facility] 5 15:54:58 Social History Question Answer Notes LastModified by Organizat ion Details LastModified Time Tobacco Smoking Status Current Every Day Smoker Annie mendosa [facility] 03/13/2023 15:08:32 What Is Your Level Of Alcohol Consumption? Moderate Information not available 03/13/2023 What Is Your Level Of Caffeine Consumption? Moderate Information not available 03/13/2023 What Was The Date Of Your Most Recent Tobacco Screening? 03/13/2023 Information not available 03/13/2023 Have You Ever Been Counseled For Unhealthy Alcohol Use? No Information not available 03/13/2023 Do You Use Any Illicit Or Recreational Drugs? No Information not available 03/13/2023 Has Tobacco Cessation Counseling Been Provided? No Information not available 03/13/2023 Do You Or Have You Ever Used Any Other Forms Of Tobacco Or Nicotine? No Information not available 03/13/2023 Sex: Unknown Functional Status None recorded. Mental Status None recorded. Family History Nothing Reported. Medical History Condition Response ARTHRITIS Y USE OF BLOOD THINNERS Y NEUROPATHY Y LUNG DISEASE/DISORDER Y HEARTBURN / REFLUX Y HIGH CHOLESTEROL / HYPERLIPIDEMIA Y OBESITY Y OSTEOPOROSIS Y PULMONARY DISEASE Y CORONARY ARTERY DISEASE (CAD) Y BACK / NECK PROBLEMS Y DEPRESSION (INCLUDING POST ) Y Gynecological HistoryNo gynecological history recorded. Obstetrics History GPAL:G 0 P 0 0 0 0 Past Encounters Encounter ID Performer Location Encounter Start Date Encounter Closed Date Diagnosis/Indication Diagnosis SNOMED-CT Code Diagnosis ICD10 Code Diagnosis Note [id number] Romulo Lockett DPM [facility] [address] [place] [address] 03/13/2023 15:00:25 03/13/2023 15:29:37 Dystrophia unguium 25820744 L60.3 Nails 1 through 10 were debrided with sharp mechanical debridemen t without incident. Nails were debrided and greater than 50% length and thickness where needed. [id number] Romulo Lockett DPM [facility] [place] [address] [facility], [address] [address] 06/05/2023 14:07:55 06/05/2023 16:27:01 Dystrophia unguium 30800303 L60.3 Nails 1 through 10 were debrided with sharp mechanical debridemen t without incident. Nails were debrided and greater than 50% length and thickness where needed. Cigarette smoker 8224886 7 F17.210 recommend patient discontinu e smokingedu cated on signs and symptoms of smoking Peripheral arterial occlusive disease 621477207 I73.9 obtain noninvasiv e vascular testingfol low-up to review testing [id number] [facility] [address] [place] [address], [address] [address] 10/21/2023 16:57:13 10/30/2023 10:28:01 Peripheral arterial occlusive disease 272288227 I73.9 obtain noninvasiv e vascular testingfol low-up to review testing Dystrophia unguium 77746 009 L60.3 Nails 1 through 10 were debrided with sharp mechanical debridemen t without incident. Nails were debrided and greater than 50% length and thickness where needed. Cigarette smoker 1207085 7 F17.210 recommend patient discontinu e smokingedu cated on signs and symptoms of smoking [id number] Romulo Lockett DPM [facility] [place] [address] [place] [address], [address] [address] 12/04/2023 15:27:11 12/04/2023 15:56:55 Peripheral arterial occlusive disease 493235058 I73.9 arterial testing reviewedse [place] below the knee disease right lower extremityP atient recommende d to follow up with vascular for possible testing and treatmentr eferral for lower extremity vascular needed Cigarette smoker 8953019 7 F17.210 recommend patient discontinu e smokingedu cated on signs and symptoms of smoking [id number] Romulo Lockett DPM [facility] Podiatry [address], [place] [address] 03/04/2024 16:20:45 03/08/2024 10:12:08 Dystrophia unguium 08505674 L60.3 Nails 1 through 10 were debrided with sharp mechanical debridemen t without incident. Nails were debrided and greater than 50% length and thickness where needed. 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 Nails were debrided and greater than 50% length and thickness where needed. 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 Nails were debrided and greater than 50% length and thickness where needed. Cigarette smoker 7005296 7 F17.210 recommend patient discontinu e smokingedu cated on signs and symptoms of smoking [id number] Romulo Lockett DPM [facility] [place] [address], [address] [place] [address] 12/02/2024 15:50:28 12/13/2024 11:04:47 Pain in toe 098959955 M79.676 secondary to elongated painful toenails Dystrophia unguium 06560 009 L60.3 Nails 1 through 10 were debrided with sharp mechanical debridemen t without incident. Nails were debrided and greater than 50% length and thickness where needed. Peripheral arterial occlusive disease 185834507 I73.9 repeat ultrasound s Health Concerns Section Related Observation LastModified by Organization Detai ls LastModified Time None Recorded Concern Status LastModified by Organization Details LastModified Time None Recorded Advance Directives Directive None Recorded Payers Encounter Date Sequence Insurance Name Policy Number Policy Ashley Covered Member ID Ashley Member ID Guarantor Name 12/04/2023 2 [place] [employer] Nicolasa Heeter [id number] Nicolasa Heeter 12/04/[address] [facility] (MEDICARE REPLACEMENT/AD VANTAGE - PPO) [id number] Nicolasa S Heeter [id number] Nicolasa Heeter 03/04/[address] [facility] (MEDICARE REPLACEMENT/AD VANTAGE - PPO) [id number] Nicolasa S Heeter [id number] Nicolasa Heeter 06/03/[address] [facility] (MEDICARE REPLACEMENT/AD VANTAGE - PPO) [id number] Nicolasa S Heeter [id number] Nicolasa Heeter 09/02/[address] [facility] (MEDICARE REPLACEMENT/AD VANTAGE - PPO) [id number] Nicolasa S Heeter [id number] Nicolasa Heeter 09/02/2024 2 [place] OR [place]ICARE REPLACEMENT PRIMARY) Nicolasa S Heeter [id number] Nicolasa Heeter 12/02/[address] [facility] (MEDICARE REPLACEMENT/AD VANTAGE - PPO) [id number] Nicolasa S Heeter [id number] Nicolasa Heeter 12/02/2024 2 [place]IC[place] REPLACEMENT PRIMARY) Nicolasa S Heeter [id number] Nicolasa Heeter Notes Date Note Type Note Provider Name and Address Organization Details Recorded Time 12/04/2023 text/html . Patient is a 68-year-old female who returns the office for follow-up on arterial ultrasound and ABIs. Patient was found to have severe lower extremity disease on the right and xqjs-us-[id number] on the left. Patient states she does currently see a casting plug assembler and she will follow-up with their office if she is unable to follow up with lower extremity vascular with our office patient may call back for referral. Patient denies any open wounds. Patient does walk with a cane and only walks short distances. Patient is at risk for developing wounds that are nonhealing which could lead to limb amputation. Patient states that she will contact her vascular doctor. Romulo Lockett DPM [address], [place], [address], [employer] 12/04/2023 15:54:58 03/04/2024 text/html . Patient is a 68-year-old female who returns the office for follow-up on routine foot care. Patient denies any open wounds or infection. Patient states her nails have become long and painful. Patient denies any intermittent claudication or rest pain. Romulo Lockett DPM [address], [address], [place], [address], [employer] 03/08/2024 09:41:15 06/03/2024 text/html . Patient is a 69-year-old female smoker who returns for routine foot care. Patient has history of peripheral arterial disease. Patient denies any open wounds or infection. Patient denies any intermittent claudication walking rest pain. Patient states her nails are long would like to have them cut. Patient denies any other complaints. Romulo Lockett DPM [address], [address], [place], [address], [employer] 06/16/2024 14:13:28 09/02/2024 text/html . Patient is a 69-year-old female who returns to the office for follow-up on routine foot care. Patient denies any open wounds or injury. Patient denies any claudication with walking. Patient states her toenails are long and painful. Patient denies any other complaints. Romulo Lockett DPM [address], [place], [address], [facility] [employer] [facility] 09/03/2024 12:12:40 12/02/2024 text/html . Patient is a 69-year-old female she returns for routine foot care. Patient has elongated toenails she is unable to cut. Patient is history of peripheral arterial disease she denies any open wounds or pain with walking or cramping of the lower extremities. Patient denies any other complaints. Romulo Lockett DPM [address] [facility], [facility] [address], [place], [address], [facility] [employer] [facility] [employer] [facility] 12/06/2024 10:35:13 OBGyn Episode No OBEpisode recorded.
--- OUTSIDE RECORDS SUMMARY | 2025-02-03 11:20 | XMS_ITS | Encounter Summary ---
Author Organization [facility] Address [address] [place] [address] Care Team Providers Care Client Service Representative Name Role Phone Karen Kowalski MD Primary Care Provider [phone] Encounter Details Date Type Department Care Team (Late st Contact Info) Description 04/10/2004 Outpatient Historical [facility] Family Medicine [address] [place] [address] Jhonatan Azul, DO [address] [address] Social History Tobacco Use Types Packs/Day Years Used Date Smoking Tobacco: Never Assessed Comments Unknown Sex and Gender Information Value Date Recorded Sex Assigned at Not on file 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
--- OUTSIDE RECORDS SUMMARY | 2025-02-03 11:20 | XMS_ITS | Encounter Summary ---
Author Organization [facility] Address 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
--- OUTSIDE RECORDS SUMMARY | 2025-02-03 11:20 | XMS_ITS | Encounter Summary ---
Author Organization [facility] Address 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
--- OUTSIDE RECORDS SUMMARY | 2025-02-03 11:20 | XMS_ITS | Encounter Summary ---
Author Organization [facility] Address 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
--- OUTSIDE RECORDS SUMMARY | 2025-02-03 11:20 | XMS_ITS | Encounter Summary ---
Author Organization [facility] Address [address] [place] [address] Care Team Providers Care Type Bar And Segment Assembler Name Role Phone Karen Kowalski MD Primary Care Provider [phone] Encounter Details Date Type Department Care Team (Late st Contact Info) Description 12/06/2002 Outpatient Historical [facility] Family Medicine [address] [place] [address] Jhonatan Azul, DO [address] [address] Social History Tobacco Use Types Packs/Day Years Used Date Smoking Tobacco: Never Assessed Comments Unknown Sex and Gender Information Value Date Recorded Sex Assigned at Not on file 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
--- OUTSIDE RECORDS SUMMARY | 2025-02-03 11:20 | XMS_ITS | Encounter Summary ---
Author Organization [facility] Address [address] [place] [address] Care Team Providers Care Blood Bank Laboratory Professional Name Role Phone Karen Kowalski MD Primary Care Provider [phone] Encounter Details Date Type Department Care Team (Late st Contact Info) Description 02/14/2003 Outpatient Historical [facility] Family Medicine [address] [place] [address] Jhonatan Azul, DO [address] [address] Social History Tobacco Use Types Packs/Day Years Used Date Smoking Tobacco: Never Assessed Comments Unknown Sex and Gender Information Value Date Recorded Sex Assigned at Not on file Legal Sex Female 3:18 AM WHARF HAND Gender Identity Not on file Sexual Orientation Not on file documented as of this encounter Plan of Treatment Not on file documented as of this encounter Visit Diagnoses Not on filedocumented in this encounter Additional Health Concerns Infection Onset Date Last Indicated Resolved Time R/O COVID-19 07/14/2020 07/14/2020 07/15/2020 2:16 AM CDT documented as of this encounter Care Teams Blood Bank Laboratory Professional Relationship Specialty Start Date End Date Karen Kowalski MD PCP - General Family Practice 09/11/18 05/30/22 documented as of this encounter
--- OUTSIDE RECORDS SUMMARY | 2025-02-03 11:20 | XMS_ITS | Encounter Summary ---
Author Organization [facility] Address [address] [place] [address] Care Team Providers Care Women Specialist Name Role Phone Karen Kowalski MD Primary Care Provider [phone] Encounter Details Date Type Department Care Team (Late st Contact Info) Description 12/23/2002 Outpatient Historical [facility] Family Medicine [address] [place] [address] Jhonatan Azul, DO [address] [address] Social History Tobacco Use Types Packs/Day Years Used Date Smoking Tobacco: Never Assessed Comments Unknown Sex and Gender Information Value Date Recorded Sex Assigned at Not on file 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
--- OUTSIDE RECORDS SUMMARY | 2025-02-03 11:20 | XMS_ITS | Encounter Summary ---
Author Organization [facility] Address [address] [place] [address] Care Team Providers Care Production Support Engineer Name Role Phone Karen Kowalski MD Primary Care Provider [phone] Encounter Details Date Type Department Care Team (Late st Contact Info) Description 08/09/2004 Outpatient Historical [facility] Family Medicine [address] [place] [address] Jhonatan Azul, DO [address] [address] Social History Tobacco Use Types Packs/Day Years Used Date Smoking Tobacco: Never Assessed Comments Unknown Sex and Gender Information Value Date Recorded Sex Assigned at Not on file Legal Sex Female 3:18 AM PMP Gender Identity Not on file Sexual Orientation Not on file documented as of this encounter Plan of Treatment Not on file documented as of this encounter Visit Diagnoses Not on filedocumented in this encounter Additional Health Concerns Infection Onset Date Last Indicated Resolved Time R/O COVID-19 07/14/2020 07/14/2020 07/15/2020 2:16 AM CDT documented as of this encounter Care Teams Production Support Engineer Relationship Specialty Start Date End Date Karen Kowalski MD PCP - General Family Practice 09/11/18 05/30/22 documented as of this encounter
--- OUTSIDE RECORDS SUMMARY | 2025-02-03 11:20 | XMS_ITS | Encounter Summary ---
Author Organization [facility] Address [address] [place] [address] Care Team Providers Care Creative Writing English Professor Name Role Phone Karen Kowalski MD Primary Care Provider [phone] Encounter Details Date Type Department Care Team (Late st Contact Info) Description 09/26/2001 Outpatient Historical [facility] Family Medicine [address] [place] [address] Jhonatan Azul, DO [address] [address] Social History Tobacco Use Types Packs/Day Years Used Date Smoking Tobacco: Never Assessed Comments Unknown Sex and Gender Information Value Date Recorded Sex Assigned at Not on file 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
--- OUTSIDE RECORDS SUMMARY | 2025-02-03 11:20 | XMS_ITS | Encounter Summary ---
Author Organization [facility] Address [address] [place] [address] Care Team Providers Care Taxi Proprietor Name Role Phone Karen Kowalski MD Primary Care Provider [phone] Encounter Details Date Type Department Care Team (Late st Contact Info) Description 07/14/2002 Outpatient Historical [facility] Family Medicine [address] [place] [address] Jhonatan Azul, DO [address] [address] Social History Tobacco Use Types Packs/Day Years Used Date Smoking Tobacco: Never Assessed Comments Unknown Sex and Gender Information Value Date Recorded Sex Assigned at Not on file 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
--- OUTSIDE RECORDS SUMMARY | 2025-02-03 11:20 | XMS_ITS | Encounter Summary ---
Author Organization [facility] Address [address] [place] [address] Care Team Providers Care Call Manager Name Role Phone Karen Kowalski MD Primary Care Provider [phone] Encounter Details Date Type Department Care Team (Late st Contact Info) Description 03/23/2002 Outpatient Historical [facility] Family Medicine [address] [place] [address] Jhonatan Azul, DO [address] [address] Social History Tobacco Use Types Packs/Day Years Used Date Smoking Tobacco: Never Assessed Comments Unknown Sex and Gender Information Value Date Recorded Sex Assigned at Not on file 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
--- OUTSIDE RECORDS SUMMARY | 2025-02-03 11:20 | XMS_ITS | Encounter Summary ---
Author Organization [facility] Address [address] [place] [address] Care Team Providers Care Japanese Interpreter Name Role Phone Karen Kowalski MD Primary Care Provider [phone] Reason for Visit * Reason Comments Medication Refill Encounter Details Date Type Department Care Team (Late [facility]) Description 01/06/2019 Refill [facility] Family Medicine - [address] [place] [address] Karen Kowalski MD [address] [place] [address] Social History Tobacco Use Types Packs/Day Years Used Date Smoking Tobacco: Every Day Cigarettes 1 43 Smokeless Tobacco: Never Alcohol Use Standard Drinks/Week Comments Yes 0 (1 standard drink = 0.6 oz pur e alcohol) socially sometimes Comments No Sex and Gender Information Value Date Recorded Sex Assigned at Not on file 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 Gender Identity Not on file Sexual Orientation Not on file Occupation Industry Job Start Date Job End Date retired Not on file Not on file Not on file documented as of this encounter Plan of Treatment Not on file documented as of this encounter Visit Diagnoses Not on filedocumented in this encounter Additional Health Concerns Infection Onset Date Last Indicated Resolved Time R/O COVID-19 07/14/2020 07/14/2020 07/15/2020 2:16 AM CDT documented as of this encounter Care Teams Japanese Interpreter Relationship Specialty Start Date End Date Karen Kowalski MD PCP - General Family Practice 09/11/18 05/30/22 documented as of this encounter
--- OUTSIDE RECORDS SUMMARY | 2025-02-03 11:20 | XMS_ITS | Encounter Summary ---
Author Organization [facility] Address 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
--- OUTSIDE RECORDS SUMMARY | 2025-02-03 11:21 | XMS_ITS | Encounter Summary ---
Author Organization [facility] Address [address] [place] [address] Care Team Providers Care Surfacing Technician Name Role Phone Karen Kowalski MD Primary Care Provider [phone] Encounter Details Date Type Department Care Team (Late st Contact Info) Description 05/11/2001 Outpatient Historical [facility] Family Medicine [address] [place] [address] Jhonatan Azul, DO [address] [address] Social History Tobacco Use Types Packs/Day Years Used Date Smoking Tobacco: Never Assessed Comments Unknown Sex and Gender Information Value Date Recorded Sex Assigned at Not on file 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
--- OUTSIDE RECORDS SUMMARY | 2025-02-03 11:21 | XMS_ITS | Encounter Summary ---
Author Organization [facility] Address 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
--- OUTSIDE RECORDS SUMMARY | 2025-02-03 11:21 | XMS_ITS | Encounter Summary ---
Author Organization [facility] Address [address] [place] [address] Care Team Providers Care Recreational Resort Manager Name Role Phone Karen Kowalski MD Primary Care Provider [phone] Encounter Details Date Type Department Care Team (Late st Contact Info) Description 10/12/2001 Outpatient Historical [facility] Family Medicine [address] [place] [address] Jhonatan Azul, DO [address] [address] Social History Tobacco Use Types Packs/Day Years Used Date Smoking Tobacco: Never Assessed Comments Unknown Sex and Gender Information Value Date Recorded Sex Assigned at Not on file 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
--- OUTSIDE RECORDS SUMMARY | 2025-02-03 11:21 | XMS_ITS | Encounter Summary ---
Author Organization [facility] Address 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
--- OUTSIDE RECORDS SUMMARY | 2025-02-03 11:21 | XMS_ITS | Clinical Summary ---
Author Organization [facility] Address [address] [place] [address] Phone Care Team Providers Care Invisible Braces Orthodontist Name Role Phone Unavailable Primary Care Provider Unavailabl e Allergies No known active allergies Medications ALPRAZolam (XANAX) 0.5 mg tablet TAKE ONE TABLET BY MOUTH ONCE DAILY NEEDED 30 Tablet 1 9 Active cetirizine (ZyrTEC) 10 mg tablet Take 10 mg by mouth daily. Active albuterol HFA 90 mcg inhalerIndicatio ns:Chronic obstructive pulmonary disease, unspecified COPD type (CMS/HCC) Take 2 Puffs by inhalation every 6 hours as needed for Shortness of Breath. 8.5 Gram 2 0 Active ipratropium-albu teroL (DUONEB) 0.5 mg-3 mg(2.5 mg base)/3 mL Solution for NebulizationIndi cations:Chronic obstructive pulmonary disease, unspecified COPD type (CMS/HCC) Take 3 mL by inhalation 1 time daily as needed for Shortness of Breath or Wheezing. 90 Each 1 0 Active atorvastatin (LIPITOR) 80 mg tablet Take 1 Tablet (80 mg) by mouth daily at bedtime. 90 Tablet 3 0 Active lisinopriL (PRINIVIL) 20 mg tablet Take 1 Tablet (20 mg) by mouth daily. 90 Tablet 3 0 Active sertraline (ZOLOFT) 100 mg tabletIndication s:Moderate episode of recurrent major depressive disorder (CMS/HCC) TAKE 1 TABLET BY MOUTH EVERY DAY 90 Tablet 1 Active buPROPion HCL (WELLBUTRIN SR) 150 mg Sustained Release 12 hour tabletIndication s:Moderate episode of recurrent major depressive disorder (CMS/HCC) Take 1 Tablet (150 mg) by mouth 2 times daily. 180 Tablet 1 1 Active umeclidinium-horace anteroL (Anoro Ellipta) 62.5-25 mcg/actuation Disk with DeviceIndication s:Chronic obstructive pulmonary disease, unspecified COPD type (CMS/HCC) INHALE 1 PUFF BY MOUTH EVERY DAY 3 Each 1 1 Active clopidogreL (PLAVIX) 75 mg Tablet TAKE 1 TABLET BY MOUTH DAILY 90 Tablet 3 1 Active montelukast (SINGULAIR) 10 mg tabletIndication s:Chronic obstructive pulmonary disease with acute exacerbation (CMS/HCC) TAKE 1 TABLET BY MOUTH EVERYDAY AT BEDTIME 90 Tablet 1 Active traMADoL (ULTRAM) 50 mg tabletIndication s:DDD (degenerative disc disease), lumbar TAKE 1 TABLET(50 MG) BY MOUTH EVERY 6 HOURS NEEDED FOR PAIN 30 Tablet 2 1 Active tirzepatide (Mounjaro) 7.5 mg/0.5 mL Pen Injector Inject 0.5 mL (7.5 mg) by subcutaneous injection every 7 days. 2 mL 2 05/21/2023 10:32 AM CDT 3 Active Active Problems Patient Care Coordination No te Formatting of this note migh t be different from the original. Digital Marketing Officer - Dr. Jensen [facility] - [address] [facility] Vascular Digital Marketing Officer - Dr. Darren Weiss MD, [facility], [facility] - [address] [facility] Problem Noted Date Diagnosed Date PAD (peripheral artery disease) 07/26/2020 Bilateral carotid artery stenosis 07/20/2020 Generalized anxiety disorder 08/12/2019 Benign essential HTN 09/02/2018 Mixed hyperlipidemia 09/02/2018 Chronic obstructive pulmonary disease 09/02/2018 Gastroesophageal reflux disease without esophagi tis 09/02/2018 Moderate episode of recurrent major depressive d isorder 09/02/2018 Morbid obesity due to excess calories 09/02/2018 Irritable bowel syndrome with diarrhea 8 DDD (degenerative disc disease), lumbar 09/02/20 18 Non-seasonal allergic rhinitis due to pollen Atherosclerosis of aorta 09/02/2018 Tobacco dependence 09/02/2018 History of colon polyps 09/02/2018 Resolved Problems Problem Noted Date Diagnosed Date Resolved Date Carotid occlusion, right 07/26/2020 Stenosis of left carotid artery 07/26/2020 08/10/2020 BMI 40.0-44.9, adult 09/02/2018 020 Immunizations Immunization Administration Dates Next Due (PNEUMOVAX 23)(50 YRS UP) PN EUMOCOCCAL POLYSACCHARIDE (PPV23) 0.5 ML, IM 08/10/2020 INFLUENZA VACCINE HIGH DOSE QUADRIVALENT 65 YR UP PF IM 08/10/2020 INFLUENZA VACCINE QUADRIVALENT 6 MOS UP PF IM ,09/11/2017 Influenza Seasonal Unspecified Formulation IM Influenza Vaccine High Dose 65+ Yrs IM 8 Influenza Vaccine Tri Split 4+ Im 08/14/2016 Pneumococcal Polysaccharide Vacc 23-goran IM SCHIP 09/21/2011 Family History Medical History Relation Name Comments Lung Cancer Brother Other Brother Respiratory Disease Brother Other Father Respiratory Disease Father Breast Cancer Mother Melanoma Mother Other Mother Diabetes Paternal Grandfather Coronary Artery Disease Sister Other Sister Relation Name Status Comments Brother Father Maternal Grandfather Maternal Grandmother Mother Paternal Grandfather Paternal Grandmother Sister Social History Tobacco Use Types Packs/Day Years Used Date Smoking Tobacco: Every Day Cigarettes 0.5 43 Smokeless Tobacco: Never Tobacco Cessation:Counseling Given: Yes Alcohol Use Standard Drinks/Week Comments Yes 0 (1 standard drink = 0.6 oz pur e alcohol) socially sometimes Comments No Sex and Gender Information Value Date Recorded Sex Assigned at Not on file Legal Sex Female 3:18 AM TACK MAKER Gender Identity Not on file Sexual Orientation Not on file Occupation Industry Job Start Date Job End Date retired Not on file Not on file Not on file Last Filed Vital Signs Vital Sign Reading Time Taken Comments Blood Pressure 138/60 02/26/2021 11:47 AM CDT Pulse 77 02/26/2021 11:47 AM CDT Temperature 36.6 C (97.9 F) 08/10/2020 11:11 AM CDT Respiratory Rate 18 02/26/2021 11:4 7 AM CDT Oxygen Saturation 96% 02/26/2021 11: 47 AM CDT Inhaled Oxygen Concentration - - Weight 111.5 kg (245 lb 12.8 oz) 2020 11:47 AM CDT Height 157.5 cm (5' 2 ) 02/26/2021 11:4 7 AM CDT Body Mass Index 44.96 02/26/2021 11:47 AM CDT Plan of Treatment Health Maintenance Due Date Last Done Comments DTAP/TDAP/TD VACCINES (1 - Tdap) 1974 FIT-DNA Q 3 years 2000 FIT/FOBT Q 1 year 2000 Flex Sig/CT Colonography Q 5 years 2000 ZOSTER VACCINE (1 of 2) 2005 RSV VACCINE (60+ or ) (1 - Risk 60-74 years 1-dose series) 2015 OSTEOPOROSIS SCREENING 2020 BREAST CANCER SCREENING 08/17/2020 08/17/2019 PNEUMOCOCCAL VACCINE 50+ YEA RS (2 of 2 - PCV) 08/10/2021 08/10/2020, 09/21/2011 Pre-Diabetes and Diabetes Screening 10/02/2023 10/02/2020 INFLUENZA VACCINE (#1) 2024 0, 08/09/2019, 08/03/2018, Additional history exists COLORECTAL SCREENING 09/18/2028 09/18/2018, 09/18/2018, 09/18/2018 Colorectal Cancer Screening 09/18/2028 Medical Devices Implanted Type Area Singing Telegram Performer Device Identifier Shelf Expiration Date Model / Serial / Lot Device Resolution Clip [id number] - [id number] Implanted:Qty: 2 on 09/18/2018 by Deepti Cuba MD at [facility] N/A: Perianal [employer] [id number] / / [id number] Procedures Procedure Name Priority Date/Time Associated Diagnosis Comments HEMOGLOBIN A1C Routine 10/02/2020 11:15 AM TACK MAKER Elevated fasting glucose MAMMO 3D PAUL SCREEN BILAT W OR WO CAD Routine 08/17/2019 4:51 PM CDT Visit for screening mammogram COLONOSCOPY REPORT 09/18/2018 1: 07 PM CDT from Last 3 Months or Most Recently Relevant to Health Maintenance Results * HEMOGLOBIN A1C (10/02/2020 11:15 AM TACK MAKER) HEMOGLOBIN A1C 5.3 <=5.6 % 10/02/2020 1:11 PM TACK MAKER [facility] [facility] EST. AVG GLUCOSE, A1C 105 mg/dL 10/02/2020 1:11 PM TACK MAKER [facility] Blood Venipuncture / Unknown 10/02/2020 11:15 AM TACK MAKER 10/02/2020 11:15 AM TACK MAKER Narrative [facility] - 10/02/2020 1:11 PM TACK MAKER HGB A1C INTERPRETATION NORMAL: <5.7% PRE-DIABETES: 5.7 - 6.4% DIABETES: 6.5% OR GREATER us Karen Kowalski MD CHEMISTRY ORDERABLES Final Res ult [facility] CLIA# [id number] [place] [address] * MAMMO SCRN BILAT 3D PAUL W OR WO CAD (08/17/2019 4:51 PM CDT) Anatomical Region Laterality Modality Breast Bilateral Mammography Narrative 08/18/2019 8:22 AM CDT Bilateral Digital Mammogram with CAD and 3D Tomography Reason for Exam: Screening Comparison: Compared to: 10/17/2017 MAMMO SCREEN BILAT W OR WO CAD, 10/17/2017 MAMMO SCREEN BILAT W OR WO CAD, and 09/26/2016 MAMMO SCREEN BILAT W OR WO CAD Technique: 3D MLO and CC digital tomosynthesis images were acquired and synthesized 2D images (C view) were generated. This digital mammogram was also analyzed by the Computer Aided Detection System CAD). Findings: The breasts are almost entirely fatty. There are no suspicious masses, areas of architectural distortions, or microcalcifications to suggest malignancy. No significant new findings since the prior mammogram(s). Impression: Negative screening mammogram. Recommendation: Routine annual follow-up Overall Assessment: Birads Category 1: Negative Karen Kowalski MD MAMMO ORDERABLES Final Result * COLONOSCOPY REPORT (09/18/2018 1:07 PM CDT) Narrative Procedure Note Deepti Cuba MD - 09/18/2018 1:07 PM CDT [facility] Endoscopy Patient Name: Nicolasa Campo Procedure Date: 09/18/2018 Date of : 1955 Admit Type: Outpatient Attending MD: Deepti Cuba MD Procedure: Colonoscopy Indications: High risk colon cancer surveillance: Personal history of colonic polyps, Last colonoscopy: 2011 Providers: Deepti Cuba MD Referring MD: Karen Nicholson MD Medicines: Monitored Anesthesia Care Complications: No immediate complications. Procedure: Informed consent was obtained for the procedure, including moderate sedation after risks were discussed. Based on the pre-procedure assessment, including review of the patient's medical history, medications, allergies, and review of systems, the patient was deemed to be an appropriate candidate for sedation. A timeout was performed. Continuous ECG monitoring, pulse oximetry, blood pressure monitoring, and direct observation were performed. The Colonoscope was introduced through the anus and advanced to the terminal ileum. The colonoscopy was performed without difficulty. The patient tolerated the procedure well. The quality of the bowel preparation was excellent. Findings: The perianal and digital rectal examinations were normal. A 10 mm polyp was found in the ascending colon. The polyp was sessile. Area was successfully injected with 1 mL saline for a lift polypectomy. The polyp was removed with a piecemeal technique using a cold snare. Resection and retrieval were complete. To close a defect after polypectomy, two hemostatic clips were successfully placed. There was no bleeding at the end of the procedure. A 5 mm polyp was found in the rectum. The polyp was sessile. The polyp was removed with a cold snare. Resection and retrieval were complete. Estimated blood loss was minimal. There was evidence of a prior end-to-side colo-rectal anastomosis at 20 cm proximal to the anus. This was patent. Internal hemorrhoids were found during retroflexion. The hemorrhoids were Grade I (internal hemorrhoids that do not prolapse). Impression: - One 10 mm polyp in the ascending colon, removed piecemeal using a cold snare. Resected and retrieved. Injected. Clips were placed. - One 5 mm polyp in the rectum, removed with a cold snare. Resected and retrieved. - Patent end-to-side colo-rectal anastomosis. - Internal hemorrhoids. Recommendation: - Patient has a contact number available for emergencies. The signs and symptoms of potential delayed complications were discussed with the patient. Return to normal activities tomorrow. Written discharge instructions were provided to the patient. - Await pathology results. - Repeat colonoscopy in 3 years for surveillance. Procedure Code(s): --- Professional --- 78120, Colonoscopy, flexible; with removal of tumor(s), polyp(s), or other lesion(s) by snare technique 84300, Colonoscopy, flexible; with directed submucosal injection(s), any substance CPT copyright 2016 [employer]. All rights reserved. The codes documented in this report are preliminary and upon medical coder review may be revised to meet current compliance requirements. Deepti Cuba MD 09/18/2018 1:06:59 PM This report has been signed electronically. Number of Addenda: [phone] [id number] [place] [address] Deepti Cuba MD GI PROCEDURE ORDERABLES Final Re sult from Last 3 Months or Most Recently Relevant to Health Maintenance Insurance [facility] [id number] RX [employer] RX Member Subscriber Plan / Payer (Ef fective 2022-Present) Name:Nicolasa Campo Relation to Subscriber:Self Name:Howie Campolivia Joyner Payer ID:Not on file Group ID:[id number] Type:RX Medicare Part D Address: [place] Advance Directives For more information, please contact: [phone] * Full Code (Latest Code Status on File) Date Activated Date Inactivated Comments 09/18/2018 12:14 PM 09/18/2018 3:58 PM
--- OUTSIDE RECORDS SUMMARY | 2025-02-03 11:21 | XMS_ITS | Encounter Summary ---
Author Organization [facility] Address [address] [place] [address] Care Team Providers Care Gas Leak Inspector Name Role Phone Karen Kowalski MD Primary Care Provider [phone] Encounter Details Date Type Department Care Team (Late st Contact Info) Description 12/28/2001 Outpatient Historical [facility] Family Medicine [address] [place] [address] Jhonatan Azul, DO [address] [address] Social History Tobacco Use Types Packs/Day Years Used Date Smoking Tobacco: Never Assessed Comments Unknown Sex and Gender Information Value Date Recorded Sex Assigned at Not on file Legal Sex Female 3:18 AM EMBEDDED SYSTEMS SOFTWARE 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
--- OUTSIDE RECORDS SUMMARY | 2025-02-03 11:21 | XMS_ITS | Encounter Summary ---
Author Organization [facility] Address [address] [place] [address] Care Team Providers Care Papeterie Table Assembler Name Role Phone Karen Kowalski MD Primary Care Provider [phone] Reason for Visit * Reason Comments Medication Refill Encounter Details Date Type Department Care Team (Late st Contact Info) Description 09/05/2018 Refill [facility] Family Medicine - [address] [place] [address] Karen Kowalski MD [address] [place] [address] Social History Tobacco Use Types Packs/Day Years Used Date Smoking Tobacco: Never Assessed Comments Unknown Sex and Gender Information Value Date Recorded Sex Assigned at Not on file Legal Sex Female 3:18 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
--- OUTSIDE RECORDS SUMMARY | 2025-02-03 11:21 | XMS_ITS | Encounter Summary ---
Author Organization [facility] Address [address] [place] [address] Care Team Providers Care Brick Pointer Name Role Phone Karen Kowalski MD Primary Care Provider [phone] Encounter Details Date Type Department Care Team (Late st Contact Info) Description 11/18/2001 Outpatient Historical [facility] Family Medicine [address] [place] [address] Jhonatan Azul, DO [address] [address] Social History Tobacco Use Types Packs/Day Years Used Date Smoking Tobacco: Never Assessed Comments Unknown Sex and Gender Information Value Date Recorded Sex Assigned at Not on file Legal Sex Female 3:18 AM SPRINKLING SYSTEM IRRIGATOR Gender Identity Not on file Sexual Orientation Not on file documented as of this encounter Plan of Treatment Not on file documented as of this encounter Visit Diagnoses Not on filedocumented in this encounter Additional Health Concerns Infection Onset Date Last Indicated Resolved Time R/O COVID-19 07/14/2020 07/14/2020 07/15/2020 2:16 AM CDT documented as of this encounter Care Teams Brick Pointer Relationship Specialty Start Date End Date Karen Kowalski MD PCP - General Family Practice 09/11/18 05/30/22 documented as of this encounter
== END 2025-02-03 10:30 | disposition home or self-care (01) ==
PROVIDERS: PCP Family Medicine; Visit Provider Nurse Practitioner
DX: R41.3 Other amnesia (principal); R90.82 White matter disease, unspecified
CPT/HCPCS: 70470; Q9967

== ENCOUNTER 2025-09-15 09:44 | Outpatient (CLI) | payer MEDICARE, MEDICAID, SELFPAY ==
--- NOTE | ~2025-09-15 | CT_ITS ---
EXAMINATION:CT lung screening DATE: 09/15/2025 09:57 INDICATION: Personal history of nicotine dependence. TECHNIQUE: Computed tomography (CT) of the chest was performed without intravenous contrast. Automated exposure control and iterative reconstruction technique were employed. The dose-length product (DLP) was 129.80 mGy-cm. COMPARISON: Chest CT 09/14/2024 FINDINGS: There is mild emphysema. There is a 3 mm nodule in left upper lobe. There are a few 2 mm nodules in left upper lobe. There is mild atelectasis bilaterally. No pleural effusion. The heart size is normal. There are coronary artery calcifications. No pericardial effusion. There is severe cervical, thoracic, and lumbar spondylosis. IMPRESSION: 1. Lung-RADS category 2: Benign appearance or behavior. Continue annual screening with noncontrast low-dose chest CT in 12 months. Reviewed, dictated and finalized at location E. IMPRESSION: 1. Lung-RADS category 2: Benign appearance or behavior. Continue annual screeni ng with noncontrast low-dose chest CT in 12 months.
--- OUTSIDE RECORDS SUMMARY | 2025-09-15 10:32 | XMS_ITS | Encounter Summary ---
Author Organization [facility] Address [address] [place] [address] Care Team Providers Care Shearing Machine Tender Name Role Phone Rama Casillas DO Primary Care Provider [phone] Encounter Details Date Type Department Care Team (Late st Contact Info) Description 08/29/2025 Telephone [facility] Cardiology [address] [place] [address] Kyler Wright MD [address] [facility] [address] [place] [address] Social History Tobacco Use Types Packs/Day Years Used Date Smoking Tobacco: Former Cigarettes Q uit: 11/21/2023 Comments Unknown Sex and Gender Information Value Date Recorded Sex Assigned at Not on file Legal Sex Female 1:20 PM NATURAL RESOURCES TECHNICIAN Gender Identity Not on file Sexual Orientation Not on file documented as of this encounter Miscellaneous Notes * Telephone Encounter - Tanesha Roberts RN - 08/29/2025 12:16 PM CDT Last office note faxed to PCP * Telephone Encounter - Katalina Hernandes - 08/29/2025 12:08 PM CDT Patient states that Dr Casillas would like to have her diagnosis faxed over to them. Please advise, thank you. Contact : [phone] - FAX documented in this encounter Plan of Treatment Not on file documented as of this encounter Visit Diagnoses Not on filedocumented in this encounter Care Teams Shearing Machine Tender Relationship Specialty Start Date End Date Rama Casillas DO PCP - General Family Medicine 12/23/23 documented as of this encounter
--- OUTSIDE RECORDS SUMMARY | 2025-09-15 10:32 | XMS_ITS | Encounter Summary ---
Author Organization [facility] Address [address] [place] [address] Care Team Providers Care Manufacturing Shift Supervisor Name Role Phone Karen Kowalski MD Primary Care Provider [phone] Encounter Details Date Type Department Care Team (Late st Contact Info) Description 02/21/2004 Outpatient Historical [facility] Family Medicine [address] [place] [address] Jhonatan Azul, DO [address] [address] Social History Tobacco Use Types Packs/Day Years Used Date Smoking Tobacco: Never Assessed Comments Unknown Sex and Gender Information Value Date Recorded Sex Assigned at Not on file Legal Sex Female 3:18 AM SUPPLY PLANNER Gender Identity Not on file Sexual Orientation Not on file documented as of this encounter Plan of Treatment Not on file documented as of this encounter Visit Diagnoses Not on filedocumented in this encounter Additional Health Concerns Infection Onset Date Last Indicated Resolved Time R/O COVID-19 07/14/2020 07/14/2020 07/15/2020 2:16 AM CDT documented as of this encounter Care Teams Manufacturing Shift Supervisor Relationship Specialty Start Date End Date Karen Kowalski MD PCP - General Family Practice 09/11/18 05/30/22 documented as of this encounter
--- OUTSIDE RECORDS SUMMARY | 2025-09-15 10:32 | XMS_ITS | Encounter Summary ---
Author Organization [facility] Address [address] [place] [address] Care Team Providers Care Back Hoe Operator Name Role Phone Karen Kowalski MD Primary Care Provider [phone] Encounter Details Date Type Department Care Team (Late st Contact Info) Description 02/19/2003 Outpatient Historical [facility] Medicine [address] [place] [address] Ralf Vega, DO [address] [facility]Note 2] [place] [address] Social History Tobacco Use Types Packs/Day Years Used Date Smoking Tobacco: Never Assessed Comments Unknown Sex and Gender Information Value Date Recorded Sex Assigned at Not on file Legal Sex Female 3:18 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
--- OUTSIDE RECORDS SUMMARY | 2025-09-15 10:32 | XMS_ITS | Encounter Summary ---
Author Organization [facility] Address [address] [place] [address] Care Team Providers Care Over Short And Damage Clerk Name Role Phone Karen Kowalski MD Primary Care Provider [phone] Encounter Details Date Type Department Care Team (Late st Contact Info) Description 08/19/2003 Outpatient Historical [facility] Family Medicine [address] [place] [address] Jhonatan Azul, DO [address] [address] Social History Tobacco Use Types Packs/Day Years Used Date Smoking Tobacco: Never Assessed Comments Unknown Sex and Gender Information Value Date Recorded Sex Assigned at Not on file Legal Sex Female 3:18 AM ALTERATIONS SEWER Gender Identity Not on file Sexual Orientation Not on file documented as of this encounter Plan of Treatment Not on file documented as of this encounter Visit Diagnoses Not on filedocumented in this encounter Additional Health Concerns Infection Onset Date Last Indicated Resolved Time R/O COVID-19 07/14/2020 07/14/2020 07/15/2020 2:16 AM CDT documented as of this encounter Care Teams Over Short And Damage Clerk Relationship Specialty Start Date End Date Karen Kowalski MD PCP - General Family Practice 09/11/18 05/30/22 documented as of this encounter
--- OUTSIDE RECORDS SUMMARY | 2025-09-15 10:32 | XMS_ITS | Encounter Summary ---
Author Organization [facility] Address [address] [place] [address] Care Team Providers Care Rip Tailer Name Role Phone Karen Kowalski MD Primary Care Provider [phone] Reason for Visit * Reason Comments Medication Refill Encounter Details Date Type Department Care Team (Late [facility]) Description 01/06/2019 Refill [facility] Family Medicine - [address] [place] [address] Karen Kowalski MD [address] [place] [address] Social History Tobacco Use Types Packs/Day Years Used Date Smoking Tobacco: Every Day Cigarettes 1 43 Smokeless Tobacco: Never Alcohol Use Standard Drinks/Week Comments Yes 0 (1 standard drink = 0.6 oz pur e alcohol) socially sometimes Comments No Sex and Gender Information Value Date Recorded Sex Assigned at Not on file 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
--- OUTSIDE RECORDS SUMMARY | 2025-09-15 10:32 | XMS_ITS | Encounter Summary ---
Author Organization [facility] Address [address] [place] [address] Care Team Providers Care Personal Loan Specialist Name Role Phone Karen Kowalski MD Primary Care Provider [phone] Encounter Details Date Type Department Care Team (Late st Contact Info) Description 04/10/2004 Outpatient Historical [facility] Family Medicine [address] [place] [address] Jhonatan Azul, DO [address] [address] Social History Tobacco Use Types Packs/Day Years Used Date Smoking Tobacco: Never Assessed Comments Unknown Sex and Gender Information Value Date Recorded Sex Assigned at Not on file 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
--- OUTSIDE RECORDS SUMMARY | 2025-09-15 10:32 | XMS_ITS | Encounter Summary ---
Author Organization [facility] Address 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
--- OUTSIDE RECORDS SUMMARY | 2025-09-15 10:32 | XMS_ITS | Clinical Summary ---
Author Organization [facility] Address [address] [place] [address] Care Team Providers Care Ribbon Blocker Name Role Phone Rama Casillas DO Primary Care Provider [phone] Source Comments [facility],non-owned Affiliates and Associated Physician Practices is amultiple site organization consisting of ambulatory clinics and hospital sitesin [place], [place], [place] and [place]. This disclosure is being madepursuant to the Care Everywhere program and may not contain all information available regarding this patient. Last updated 18.[facility] Saqina Allergies Active Allergy Reactions Criticality Noted Date Comments Morphine Unknown 03/21/2022 wired, hallucinations Medications * Be aware that medications may not be up to date on this document. Alwaysverify current medications with the patient. buPROPion XL 24hr (Wellbutrin-XL) 150 MG tabletIndicatio ns:Major Depressive Disorder every morning Take day of surgery Reasons: Major Depressive Disorder 4 Active cetirizine (ZyrTEC) 10 MG tabletIndicatio ns:Seasonal Allergic Rhinitis Take 1 tablet by mouth once daily May take day of surgery Reasons: Hayfever Active clopidogrel (plaVIX) 75 MG tabletIndicatio ns:DVT PER PATIENT'S REPORT Hold 5 days prior to surgery Reasons: DVT PER PATIENT'S REPORT 4 Active sertraline (Zoloft) 100 MG tabletIndicatio ns:Major Depressive Disorder Take day of surgery Reasons: Major Depressive Disorder 4 Active Mounjaro 5 MG/0.5ML injectionIndica tions:WT LOSS Hold 5-7 days prior to surgery Reasons: WT LOSS 4 Active albuterol-iprat ropium (Duo-Neb) 0.5-2.5 (3) MG/3ML nebulizer solutionIndicat ions:Chronic Obstructive Pulmonary Disease Inhale 3 mL by mouth as needed for Shortness of Breath or Wheezing Reasons: Chronic Obstructive Lung Disease Active umeclidinium-vi lanterol (Anoro Ellipta) 62.5-25 MCG/ACT inhalerIndicati ons:Chronic Obstructive Pulmonary Disease Inhale 1 (one) puff by mouth once daily Reasons: Chronic Obstructive Lung Disease Active ALBUTEROL SULFATE INIndications:S OB OR WHEEZING Inhale by mouth every 6 hours as needed May use day of surgery and bring inhaler day of surgery Reasons: SOB OR WHEEZING Active atorvastatin (Lipitor) 80 MG tabletIndicatio ns:Hyperlipidem ia Take 1 tablet by mouth once daily Hold day of surgery Reasons: High Amount of Fats in the Blood Active aspirin EC (Ecotrin) 81 MG tabletIndicatio ns:HEART HEALTH Take 1 tablet by mouth once daily Hold 5 days prior to surgery Reasons: HEART HEALTH Active vitamin D3 (Cholecalcifero l) 25 MCG (1000 UNITS) tabletIndicatio ns:Vitamin D Deficiency Take 2 (two) tablets by mouth once daily 30 tablet 4 Active ascorbic acid (Vitamin C) 500 MG tabletIndicatio ns:Ascorbic Acid Deficiency Take 1 (one) tablet by mouth once daily 30 tablet 4 Active pregabalin (Lyrica) 75 MG capsuleIndicati ons:Neuropathic Pain Take 1 (one) capsule by mouth 2 times daily 60 capsule 4 Active naloxone HCl (Narcan) 4 MG/0.1ML nasal sprayIndication s:Opioid Overdose Amlin 1 (one) spray into the nose as needed (May repeat every 2 min in alternating nostrils until emergency medical help arrives for overdose) 2 Each 4 Active docusate sodium (Colace) 100 MG capsuleIndicati ons:Constipatio n Take 1 (one) capsule by mouth 2 times daily 28 capsule 4 Active ondansetron (Zofran) 8 MG tabletIndicatio ns:Postoperativ e Nausea and Vomiting Take 1 (one) tablet by mouth every 8 hours as needed for Nausea/Vomiting 30 tablet 4 Active oxyCODONE-aceta minophen (Percocet) 10-325 MG tabletIndicatio ns:Pain,MODERAT E TO SEVERE PAIN Take 1 (one) tablet by mouth every 6 hours as needed for Pain 42 tablet 4 Active bisacodyl EC (Dulcolax) 5 MG tabletIndicatio ns:Constipation Take 5 mg by mouth once daily as needed for Constipation. 1-3 TABS DAILY IN SINGLE DOSE PRN CONSTIPATION Indications: Constipation 4 Active acetaminophen (TYLENOL) 500 MG tabletIndicatio ns:Pain Take 500 mg by mouth every 6 hours as needed for Pain. Indications: Pain 4 Active amoxicillin (Amoxil) 500 MG capsule Take 4 (four) capsules by mouth 1 Hour prior to Dental Appointment 4 capsule 11 4 Active celecoxib (CeleBREX) 200 MG capsuleIndicati ons:Status post surgery TAKE 1 CAPSULE BY MOUTH DAILY FOR ACUTE PAIN 90 capsule 4 Active Active Problems Problem Noted Date Diagnosed [...] when you are drinking? 3 or 4 4 Q3: How often do you have si x or more drinks on one occasion? Never 03/22/2024 Overall Financial Resource Strain (CARDIA) Answe r Date Recorded How hard is it for you to pa y for the very basics like food, housing, medical care, and heating? Not hard at all 03/23/2024 PHQ-2 Answer Date Recorded Patient Health Questionnaire-2 Score 0 06/17/2024 [facility] [place] of Occupat ional Health - Occupational Stress [...] place to sleep or slept in a retirement (including now)? 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 Gender Identity Not on file Sexual Orientation [...] FLEX SIG - COLON CA SCREENING 1955 HEPATITIS C SCREENING 05/27/1973 DTAP/TDAP/TD VACCINES (1 - Tdap) 1974 PNEUMOCOCCAL VACCINE 50+ (1 of 1 - PCV) 2005 ZOSTER VACCINE (1 of 2) 2005 Respiratory Syncytial Virus (RSV) Vaccine Pt: or over 60 yrs (1 - Risk 60-74 years 1-dose series) 2015 MAMMOGRAM 08/17/2021 08/17/2019, 1011/2018, 08/17/2019, Additional history exists DEPRESSION SCREENING 11/17/2024 04/07/2024 MEDICARE AWV CALENDAR YEAR 2024 COVID-19 VACCINE ( - season) 2025 INFLUENZA VACCINE (#1) 2025 9, 08/03/2018, 09/11/2017, Additional history exists SCREENING FOR DIABETES 03/23/2027 03/23/2024, 2023 HEPATITIS B VACCINE Aged Out No longe [...] this topic Medical Devices Implanted Type Area Fashion Consultant Selling Device Identifier Shelf Expiration Date Model / Serial / Lot Shell Actb 52mm Hip 5 Screw Hl Clstr Implanted:Qty: 1 on 03/22/2024 by Brianne Oconnell MD at [facility] Right: Hip [employer] 02/11/2029 [id number] / / [id number] Ins Trdnt X3 10 D Pe Implanted:Qty: 1 on 03/22/2024 by Brianne Oconnell MD at [facility] Right: Hip [employer] 01/03/2029 [id number] / / [id number] Screw 6.5mm 20mm Lopro Hex Trdnt Ii Strl Implanted:Qty: 1 on 03/22/2024 by Brianne Oconnell MD at [facility] Right: Hip [employer] 12/11/2028 [id number] / / [id number] Impl Hip 36mm Nk Insg 4 Hpstm Hi Ofst Implanted:Qty: 1 on 03/22/2024 by Brianne Oconnell MD at [facility] Right: Hip [employer] 02/26/2028 [id number] / / [id number] Head Fem +0mm Ofst Tpr 36mm Hip Blx D Implanted:Qty: 1 on 03/22/2024 by Brianne Oconnell MD at [facility] Right: Hip [employer] 10/12/2028 [id number] / / [id number] Explanted Type Area Fashion Consultant Selling Device Identifier Shelf Expiration Date Model / Serial / Lot Head Fem +0mm Ofst Tpr 36mm Hip Blx D Explanted:Qty: 1 on 03/22/2024 by Brianne Oconnell MD at [facility] Right: Hip [employer] 11/13/2025 6570-0-136 / / [id number] Procedures Procedure Name Priority Date/Time Associated Diagnosis Comments BASIC METABOLIC PANEL (CALCIUM TOTAL) AM Draw 03/23/2024 4:33 AM CDT Status post surgery from Last 3 Months or Most Recently Relevant to Health Maintenance Results * (ABNORMAL) BASIC METABOLIC PANEL (CALCIUM TOTAL) (03/23/2024 4:33 AM CDT) [facility] Glucose 102 70 - 105 mg/dL 03/23/2024 5:18 AM CDT [facility] Sodium 133(L) 136 - 145 mmol/L 03/23/2024 5:18 AM CDT [facility] Potassium 4.0 3.5 - 5.1 mmol/L 03/23/2024 5:18 AM CDT [facility] Chloride 105 98 - 107 mmol/L 03/23/2024 5:18 AM CDT [facility] CO2 21(L) 22 - 29 mmol/L 03/23/2024 5:18 AM CDT [facility] Calcium 8.1(L) 8.4 - 10.4 mg/dL 03/23/2024 5:18 AM CDT [facility] Anion Gap 7 6 - 16 mmol/L 03/23/2024 5:18 AM CDT [facility] BUN 14 7 - 26 mg/dL 03/23/2024 5:18 AM CDT [facility] Creatinine 0.70 0.57 - 1.11 mg/dL 03/23/2024 5:18 AM CDT [facility] eGFR by CKD-EPI >90 >=90 mL/min/1.7 3 m2 03/23/2024 5:18 AM CDT [facility] Blood BLOOD SPECIMEN / Unknown Lab Venipuncture / Unknown 03/23/2024 4:33 AM CDT 03/23/2024 5:01 AM CDT us Brianne Oconnell MD LAB - CHEMISTRY ORDERABLES F inal Result [facility] [address] [id number] from Last 3 Months or Most Recently Relevant to Health Maintenance Insurance [facility] MANAGED MEDICARE ADV Advance Directives Documents on File Type Date Recorded 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 Do not modify or discontinue any currently active code status orders. * Full Code Date Activated Date Inactivated Comments 03/22/2024 4:44 PM 03/24/2024 4:51 PM Care Teams Ribbon Blocker Relationship Specialty Start Date End Date Rama Casillas DO [address] [place] [address] PCP - General Family Medicine 01/01/24
--- OUTSIDE RECORDS SUMMARY | 2025-09-15 10:32 | XMS_ITS | Clinical Summary ---
Author Organization [facility] Address [address] [place] [address] Phone Care Team Providers Care Auto Haulaway Driver Name Role Phone Rama Casillas DO Primary Care Provider [phone] Allergies Active Allergy Reactions Criticality Noted Date [...] Encounters Date Type Department Care Team Description 08/29/2025 Telephone [facility] Cardiology [address] [facility] [address] [place] [address] Kyler Wright MD 08/12/2025 Telephone [facility] Cardiology [address] [place] [address] Kyler Wright MD Med Management from Last 3 Months Surgical History Surgery Date Site/Laterality Comments CHOLECYSTECTOMY COLECTOMY BREAST LUMPECTOMY Bilateral Medical History Medical History Date Comments Hyperlipidemia Hypertension COPD (chronic obstructive pulmonary disease) Anxiety IBS (irritable bowel syndrome) Family History Medical History Relation Name Comments Depression Father Depression Mother Relation Name Status Comments Father Mother Social History Tobacco Use Types Packs/Day Years Used Date Smoking Tobacco: Former Cigarettes Q uit: 11/21/2023 Comments Unknown Sex and Gender Information Value Date Recorded Sex Assigned at Not on file Legal Sex Female 1:20 PM ROOFING LAYER Gender Identity Not on file Sexual Orientation Not on file Obstetrics History Last Filed Vital Signs Vital Sign Reading Time Taken Comments Blood Pressure 114/60 09/22/2024 11:46 AM ROOFING LAYER Pulse 74 09/22/2024 11:46 AM ROOFING LAYER Temperature - - Respiratory Rate - - Oxygen Saturation 95% 09/22/2024 11:46 AM ROOFING LAYER Inhaled Oxygen Concentration - - Weight 80 kg (176 lb 4.8 oz) 09/22/2024 11:46 AM ROOFING LAYER Height 157.5 cm (5' 2) 09/22/2024 11:46 AM ROOFING LAYER Body Mass Index 32.25 09/22/2024 11:46 AM ROOFING LAYER Plan of Treatment Health Maintenance Due Date [...] 08/10/2021 08/10/2020, 09/21/2011 Covid-19 Vaccine (3 - 2024-2 6 season) 2025 09/25/2021, 01/24/2021 Influenza Vaccine (#1) 2025 , 08/09/2019, 08/03/2018, Additional history exists Insurance [facility] MEDICARE ADVANTAGE [facility] MEDICARE ADVANTAGE ID[place] [id number] MEDICARE ADVANTAGE Care Teams Auto Haulaway Driver Relationship Specialty Start Date End Date Rama Casillas DO PCP - General Family Medicine 12/23/23
--- OUTSIDE RECORDS SUMMARY | 2025-09-15 10:32 | XMS_ITS | Encounter Summary ---
Author Organization [facility] Address [address] [place] [address] Care Team Providers Care Visual Merchandiser Name Role Phone Karen Kowalski MD Primary Care Provider [phone] Encounter Details Date Type Department Care Team (Late st Contact Info) Description 02/21/2003 Outpatient Historical [facility] Medicine [address] [place] [id number] Ralf Vega, DO [address] [facility] [place] [phone] Social History Tobacco Use Types Packs/Day Years Used Date Smoking Tobacco: Never Assessed Comments Unknown Sex and Gender Information Value Date Recorded Sex Assigned at Not on file Legal Sex Female 3:18 AM PATIENT ADMITTING REPRESENTATIVE Gender Identity Not on file Sexual Orientation Not on file documented as of this encounter Plan of Treatment Not on file documented as of this encounter Visit Diagnoses Not on filedocumented in this encounter Additional Health Concerns Infection Onset Date Last Indicated Resolved Time R/O COVID-19 07/14/2020 07/14/2020 07/15/2020 2:16 AM CDT documented as of this encounter Care Teams Visual Merchandiser Relationship Specialty Start Date End Date Karen Kowalski MD PCP - General Family Practice 09/11/18 05/30/22 documented as of this encounter
--- OUTSIDE RECORDS SUMMARY | 2025-09-15 10:33 | XMS_ITS | Encounter Summary ---
Author Organization [facility] Address 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
--- OUTSIDE RECORDS SUMMARY | 2025-09-15 10:33 | XMS_ITS | Encounter Summary ---
Author Organization [facility] Address [address] [place] [address] Care Team Providers Care Truck Packer Name Role Phone Karen Kowalski MD Primary Care Provider [phone] Encounter Details Date Type Department Care Team (Late st Contact Info) Description 11/19/2002 Outpatient Historical [facility] Family Medicine [address] [place] [address] Jhonatan Azul, DO [address] [address] Social History Tobacco Use Types Packs/Day Years Used Date Smoking Tobacco: Never Assessed Comments Unknown Sex and Gender Information Value Date Recorded Sex Assigned at Not on file 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
--- OUTSIDE RECORDS SUMMARY | 2025-09-15 10:33 | XMS_ITS | Encounter Summary ---
Author Organization [facility] Address [address] [place] [address] Care Team Providers Care Component Inspector Name Role Phone Karen Kowalski MD Primary Care Provider [phone] Encounter Details Date Type Department Care Team (Late st Contact Info) Description 12/25/[address] [facility] Family Medicine [address] [address] Nishant Whitney Social History Tobacco Use Types Packs/Day Years Used Date Smoking Tobacco: Never Assessed Comments Unknown Sex and Gender Information Value Date Recorded Sex Assigned at Not on file Legal Sex Female 3:18 AM DOBBY LOOM FIXER Gender Identity Not on file Sexual Orientation Not on file documented as of this encounter Plan of Treatment Not on file documented as of this encounter Visit Diagnoses Not on filedocumented in this encounter Additional Health Concerns Infection Onset Date Last Indicated Resolved Time R/O COVID-19 07/14/2020 07/14/2020 07/15/2020 2:16 AM CDT documented as of this encounter Care Teams Component Inspector Relationship Specialty Start Date End Date Karen Kowalski MD PCP - General Family Practice 09/11/18 05/30/22 documented as of this encounter
--- OUTSIDE RECORDS SUMMARY | 2025-09-15 10:33 | XMS_ITS | Encounter Summary ---
Author Organization [facility] Address [address] [place] [address] Care Team Providers Care Electrical Power Station Technician Name Role Phone Karen Kowalski MD Primary Care Provider [phone] Reason for Visit * Reason Comments Medication Refill Encounter Details Date Type Department Care Team (Late st Contact Info) Description 09/05/2018 Refill [facility] Family Medicine - [address] [place] [address] Karen Kowalski MD [address] [place] [address] Social History Tobacco Use Types Packs/Day Years Used Date Smoking Tobacco: Never Assessed Comments Unknown Sex and Gender Information Value Date Recorded Sex Assigned at Not on file 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
--- OUTSIDE RECORDS SUMMARY | 2025-09-15 10:33 | XMS_ITS | Encounter Summary ---
Author Organization [facility] Address 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
--- OUTSIDE RECORDS SUMMARY | 2025-09-15 10:33 | XMS_ITS | Encounter Summary ---
Author Organization [facility] Address [address] [place] [address] Care Team Providers Care Sound Engineer Name Role Phone Karen Kowalski MD Primary Care Provider [phone] Encounter Details Date Type Department Care Team (Late st Contact Info) Description 12/06/2002 Outpatient Historical [facility] [address] [place] [address] Jhonatan Azul, DO [address] [address] Social History Tobacco Use Types Packs/Day Years Used Date Smoking Tobacco: Never Assessed Comments Unknown Sex and Gender Information Value Date Recorded Sex Assigned at Not on file Legal Sex Female 3:18 AM LEGISLATIVE ASSISTANT Gender Identity Not on file Sexual Orientation Not on file documented as of this encounter Plan of Treatment Not on file documented as of this encounter Visit Diagnoses Not on filedocumented in this encounter Additional Health Concerns Infection Onset Date Last Indicated Resolved Time R/O COVID-19 07/14/2020 07/14/2020 07/15/2020 2:16 AM CDT documented as of this encounter Care Teams Sound Engineer Relationship Specialty Start Date End Date Karen Kowalski MD PCP - General Family Practice 09/11/18 05/30/22 documented as of this encounter
--- OUTSIDE RECORDS SUMMARY | 2025-09-15 10:33 | XMS_ITS | Encounter Summary ---
Author Organization [facility] Address [address] [place] [address] Care Team Providers Care Catalyst Supervisor Name Role Phone Karen Kowalski MD Primary Care Provider [phone] Encounter Details Date Type Department Care Team (Late st Contact Info) Description 03/23/2002 Outpatient Historical [facility] Family Medicine [address] [place] [address] Jhonatan Azul, DO [address] [address] Social History Tobacco Use Types Packs/Day Years Used Date Smoking Tobacco: Never Assessed Comments Unknown Sex and Gender Information Value Date Recorded Sex Assigned at Not on file 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
--- OUTSIDE RECORDS SUMMARY | 2025-09-15 10:33 | XMS_ITS | Encounter Summary ---
Author Organization [facility] Address [address] [place] [address] Care Team Providers Care Black Topper Name Role Phone Karen Kowalski MD Primary Care Provider [phone] Encounter Details Date Type Department Care Team (Late st Contact Info) Description 04/10/[address] [facility] Family Medicine [address] [place] [address] Jhonatan Azul, DO [address] [address] Social History Tobacco Use Types Packs/Day Years Used Date Smoking Tobacco: Never Assessed Comments Unknown Sex and Gender Information Value Date Recorded Sex Assigned at Not on file Legal Sex Female 3:18 AM FILES SUPERVISOR Gender Identity Not on file Sexual Orientation Not on file documented as of this encounter Plan of Treatment Not on file documented as of this encounter Visit Diagnoses Not on filedocumented in this encounter Additional Health Concerns Infection Onset Date Last Indicated Resolved Time R/O COVID-19 07/14/2020 07/14/2020 07/15/2020 2:16 AM CDT documented as of this encounter Care Teams Black Topper Relationship Specialty Start Date End Date Karen Kowalski MD PCP - General Family Practice 09/11/18 05/30/22 documented as of this encounter
--- OUTSIDE RECORDS SUMMARY | 2025-09-15 10:33 | XMS_ITS | Encounter Summary ---
Author Organization [facility] Address [address] [place] [address] Care Team Providers Care Industrial Designer Name Role Phone Karen Kowalski MD Primary Care Provider [phone] Encounter Details Date Type Department Care Team (Late st Contact Info) Description 10/12/2001 Outpatient Historical [facility] Family Medicine [address] [place] [address] Jhonatan Azul, DO [address] [address] Social History Tobacco Use Types Packs/Day Years Used Date Smoking Tobacco: Never Assessed Comments Unknown Sex and Gender Information Value Date Recorded Sex Assigned at Not on file Legal Sex Female 3:18 AM SYSTEMS INTEGRATION ADVISOR Gender Identity Not on file Sexual Orientation Not on file documented as of this encounter Plan of Treatment Not on file documented as of this encounter Visit Diagnoses Not on filedocumented in this encounter Additional Health Concerns Infection Onset Date Last Indicated Resolved Time R/O COVID-19 07/14/2020 07/14/2020 07/15/2020 2:16 AM CDT documented as of this encounter Care Teams Industrial Designer Relationship Specialty Start Date End Date Karen Kowalski MD PCP - General Family Practice 09/11/18 05/30/22 documented as of this encounter
--- OUTSIDE RECORDS SUMMARY | 2025-09-15 10:33 | XMS_ITS | Encounter Summary ---
Author Organization [facility] Address [address] [place] [address] Care Team Providers Care Construction Tech Name Role Phone Karen Kowalski MD Primary Care Provider [phone] Encounter Details Date Type Department Care Team (Late st Contact Info) Description 08/09/[address] [facility] Family Medicine [address] [place] [address] Jhonatan Azul, DO [address] [address] Social History Tobacco Use Types Packs/Day Years Used Date Smoking Tobacco: Never Assessed Comments Unknown Sex and Gender Information Value Date Recorded Sex Assigned at Not on file Legal Sex Female 3:18 AM FAGOT HEATER Gender Identity Not on file Sexual Orientation Not on file documented as of this encounter Plan of Treatment Not on file documented as of this encounter Visit Diagnoses Not on filedocumented in this encounter Additional Health Concerns Infection Onset Date Last Indicated Resolved Time R/O COVID-19 07/14/2020 07/14/2020 07/15/2020 2:16 AM CDT documented as of this encounter Care Teams Construction Tech Relationship Specialty Start Date End Date Karen Kowalski MD PCP - General Family Practice 09/11/18 05/30/22 documented as of this encounter
--- OUTSIDE RECORDS SUMMARY | 2025-09-15 10:33 | XMS_ITS | Encounter Summary ---
Author Organization [facility] Address [address] [place] [address] Care Team Providers Care In Store Demonstrator Name Role Phone Karen Kowalski MD Primary Care Provider [phone] Encounter Details Date Type Department Care Team (Late st Contact Info) Description 12/14/2002 Outpatient Historical [facility] Family Medicine [address] [place] [address] Jhonatan Azul, DO [address] [address] Social History Tobacco Use Types Packs/Day Years Used Date Smoking Tobacco: Never Assessed Comments Unknown Sex and Gender Information Value Date Recorded Sex Assigned at Not on file Legal Sex Female 3:18 AM YARN PACKER Gender Identity Not on file Sexual Orientation Not on file documented as of this encounter Plan of Treatment Not on file documented as of this encounter Visit Diagnoses Not on filedocumented in this encounter Additional Health Concerns Infection Onset Date Last Indicated Resolved Time R/O COVID-19 07/14/2020 07/14/2020 07/15/2020 2:16 AM CDT documented as of this encounter Care Teams In Store Demonstrator Relationship Specialty Start Date End Date Karen Kowalski MD PCP - General Family Practice 09/11/18 05/30/22 documented as of this encounter
--- OUTSIDE RECORDS SUMMARY | 2025-09-15 10:33 | XMS_ITS | Encounter Summary ---
Author Organization [facility] Address [address] [place] [address] Care Team Providers Care Roof Bolter Helper Name Role Phone Karen Kowalski MD Primary Care Provider [phone] Encounter Details Date Type Department Care Team (Late st Contact Info) Description 05/11/2001 Outpatient Historical [facility] Family Medicine [address] [place] [address] Jhonatan Azul, DO [address] [address] Social History Tobacco Use Types Packs/Day Years Used Date Smoking Tobacco: Never Assessed Comments Unknown Sex and Gender Information Value Date Recorded Sex Assigned at Not on file Legal Sex Female 3:18 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
--- OUTSIDE RECORDS SUMMARY | 2025-09-15 10:33 | XMS_ITS | Encounter Summary ---
Author Organization [facility] Address [address] [place] [address] Care Team Providers Care Copier Technician Name Role Phone Karen Kowalski MD Primary Care Provider [phone] Encounter Details Date Type Department Care Team (Late st Contact Info) Description 07/14/2002 Outpatient Historical [facility] Family Medicine [address] [place] [address] Jhonatan Azul, DO [address] [address] Social History Tobacco Use Types Packs/Day Years Used Date Smoking Tobacco: Never Assessed Comments Unknown Sex and Gender Information Value Date Recorded Sex Assigned at Not on file Legal Sex Female 3:18 AM MANAGER COST Gender Identity Not on file Sexual Orientation Not on file documented as of this encounter Plan of Treatment Not on file documented as of this encounter Visit Diagnoses Not on filedocumented in this encounter Additional Health Concerns Infection Onset Date Last Indicated Resolved Time R/O COVID-19 07/14/2020 07/14/2020 07/15/2020 2:16 AM CDT documented as of this encounter Care Teams Copier Technician Relationship Specialty Start Date End Date Karen Kowalski MD PCP - General Family Practice 09/11/18 05/30/22 documented as of this encounter
--- OUTSIDE RECORDS SUMMARY | 2025-09-15 10:33 | XMS_ITS | Encounter Summary ---
Author Organization [facility] Address [address] [place] [address] Care Team Providers Care Flight Radio Officer Name Role Phone Karen Kowalski MD Primary Care Provider [phone] Encounter Details Date Type Department Care Team (Late st Contact Info) Description 07/03/2004 Outpatient Historical [facility] Family Medicine [address] [place] [address] Jhonatan Azul, DO [address] [address] Social History Tobacco Use Types Packs/Day Years Used Date Smoking Tobacco: Never Assessed Comments Unknown Sex and Gender Information Value Date Recorded Sex Assigned at Not on file Legal Sex Female 3:18 AM SERGER Gender Identity Not on file Sexual Orientation Not on file documented as of this encounter Plan of Treatment Not on file documented as of this encounter Visit Diagnoses Not on filedocumented in this encounter Additional Health Concerns Infection Onset Date Last Indicated Resolved Time R/O COVID-19 07/14/2020 07/14/2020 07/15/2020 2:16 AM CDT documented as of this encounter Care Teams Flight Radio Officer Relationship Specialty Start Date End Date Karen Kowalski MD PCP - General Family Practice 09/11/18 05/30/22 documented as of this encounter
--- OUTSIDE RECORDS SUMMARY | 2025-09-15 10:33 | XMS_ITS | Encounter Summary ---
Author Organization [facility] Address [address] [place] [address] Care Team Providers Care Artificial Limb Maker Name Role Phone Karen Kowalski MD Primary Care Provider [phone] Encounter Details Date Type Department Care Team (Late st Contact Info) Description 12/07/2001 Outpatient Historical [facility] Family Medicine [address] [place] [address] Jhonatan Azul, DO [address] [address] Social History Tobacco Use Types Packs/Day Years Used Date Smoking Tobacco: Never Assessed Comments Unknown Sex and Gender Information Value Date Recorded Sex Assigned at Not on file Legal Sex Female 3:18 AM HUMAN RESOURCES HR REPRESENTATIVE Gender Identity Not on file Sexual Orientation Not on file documented as of this encounter Plan of Treatment Not on file documented as of this encounter Visit Diagnoses Not on filedocumented in this encounter Additional Health Concerns Infection Onset Date Last Indicated Resolved Time R/O COVID-19 07/14/2020 07/14/2020 07/15/2020 2:16 AM CDT documented as of this encounter Care Teams Artificial Limb Maker Relationship Specialty Start Date End Date Karen Kowalski MD PCP - General Family Practice 09/11/18 05/30/22 documented as of this encounter
--- OUTSIDE RECORDS SUMMARY | 2025-09-15 10:33 | XMS_ITS | Clinical Summary ---
Author Organization [facility] Address [address] [place] [address] Phone Care Team Providers Care Drywall Finisher Foreman Name Role Phone Unavailable Primary Care Provider [...] migh t be different from the original. [place] Soaping Machine Operator - Dr. Jensen [facility], [facility] - [address] [facility] [place] Soaping Machine Operator - Dr. Darren Weiss MD, [facility], [facility] - [address] [facility] Problem Noted Date Diagnosed Date PAD [...] 07/26/2020 08/10/2020 BMI 40.0-44.9, adult 09/02/2018 020 Encounters Date Type Department Care Team Description 08/23/2025 External Device Data ST[facility] ABSTRACTION Provider, Abstract 08/23/2025 External Device Data [facility] ABSTRACTION Provider, Abstract from Last 3 Months Immunizations Immunization Administration Dates Next Due (COMRINATY)(12YR UP) COVID-1 9 VACCINE, MRNA (PF)30 MCG/0.3 ML, IM SYRINGE 08/17/2025 (PNEUMOVAX 23)(50 YRS UP) PN EUMOCOCCAL POLYSACCHARIDE [...] on file Legal Sex Female 3:18 AM GUITAR PLAYER Gender Identity Not on file Sexual Orientation [...] 11:47 AM CDT Height 157.5 cm (5' 2) 02/26/2021 11:4 7 AM CDT Body Mass Index 44.96 02/26/2021 11:47 AM CDT Plan of Treatment Health Maintenance Due Date Last Done Comments DTAP/TDAP/TD VACCINES (1 - Tdap) 1974 FIT-DNA Q 3 years 2000 FIT/FOBT Q 1 year 2000 Flex Sig/CT Colonography Q 5 years 2000 RSV VACCINE (60+ or ) (1 - Risk 50-74 years 1-dose series) 2005 ZOSTER VACCINE (1 of 2) 2005 OSTEOPOROSIS SCREENING 2020 BREAST CANCER SCREENING 08/17/2020 08/17/2019, 05/30 PNEUMOCOCCAL VACCINE 50+ YEA RS (2 of 2 - PCV) 08/10/2021 08/10/2020, 09/21/2011 Pre-Diabetes and Diabetes Screening 10/02/2023 10/02/2020 INFLUENZA VACCINE (#1) 2025 , 08/09/2019, 08/03/2018, Additional history exists COVID-19 Vaccine (2 - 2023-2 5 season) 2026 08/17/2025 COLORECTAL SCREENING 09/18/2028 09/18/2018, 09/18/2018, 09/18/2018 Colorectal Cancer Screening 09/18/2028 Medical Devices Implanted Type Area Radiation Technician Device Identifier Shelf Expiration Date Model / Serial / Lot Device Resolution Clip [id number] - [id number] Implanted:Qty: 2 on 09/18/2018 by Deepti Cuba MD at [facility] Clip N/A: Perianal [employer] [id number] / / [id number] Procedures Procedure Name Priority Date/Time Associated Diagnosis Comments HEMOGLOBIN A1C Routine 10/02/2020 11:15 AM GUITAR PLAYER Elevated fasting glucose MAMMO 3D PAUL SCREEN BILAT W OR WO CAD Routine 08/17/2019 4:51 PM CDT Visit for screening mammogram COLONOSCOPY REPORT 09/18/2018 1: 07 PM CDT from Last 3 Months or Most Recently Relevant to Health Maintenance Results * HEMOGLOBIN A1C (10/02/2020 11:15 AM GUITAR PLAYER) HEMOGLOBIN A1C 5.3 <=5.6 % 10/02/2020 1:11 PM GUITAR PLAYER [facility] EST. AVG GLUCOSE, A1C 105 mg/dL 10/02/2020 1:11 PM GUITAR PLAYER [facility] [employer] [facility] Blood Venipuncture / Unknown 10/02/2020 11:15 AM GUITAR PLAYER 10/02/2020 11:15 AM GUITAR PLAYER Narrative [facility] - 10/02/2020 1:11 PM GUITAR PLAYER HGB A1C INTERPRETATION NORMAL: <5.7% PRE-DIABETES: 5.7 - 6.4% DIABETES: 6.5% OR GREATER us Karen Kowalski MD CHEMISTRY ORDERABLES Final Res ult [facility] [employer] [facility] CLIA# [id number] [place] [address] * MAMMO SCRN BILAT 3D PAUL W [...] follow-up Overall Assessment: Birads Category 1: Negative us Karen Kowalski MD MAMMO ORDERABLES Final Result * COLONOSCOPY REPORT (09/18/2018 1:07 PM CDT) Narrative Procedure Note Deepti Cuba MD - 09/18/2018 1:07 PM CDT [facility] Endoscopy Patient Name: Nicolasa Campo Procedure [...] for surveillance. Procedure Code(s): --- Professional --- 95790, Colonoscopy, flexible; with removal of tumor(s), polyp(s), or other lesion(s) by snare technique 03950, Colonoscopy, flexible; with directed submucosal injection(s), any substance CPT copyright 2016 [employer]. All rights reserved. The codes documented in this report are preliminary and upon quantitative analyst developer review may be revised to meet current compliance requirements. Deepti Cuba MD 09/18/2018 1:06:59 PM This report has been signed electronically. Number of Addenda: [id number] [address] [place] [address] Deepti Cuba MD GI PROCEDURE ORDERABLES Final Re sult from Last 3 Months or Most Recently Relevant to Health Maintenance Insurance [address] [address] RX [employer] RX Member Subscriber Plan / Payer (Ef fective 2022-Present) Name:Nicolasa Campo Relation to Subscriber:Self Name:Nicolasa Campo Payer ID:Not on file Group ID:[id number] Type:RX Medicare Part D Address: [place] Advance Directives For more information, please contact: [phone] * Full Code (Latest Code Status on File) Date Activated Date Inactivated Comments 09/18/2018 12:14 PM 09/18/2018 3:58 PM
--- OUTSIDE RECORDS SUMMARY | 2025-09-15 10:33 | XMS_ITS | Encounter Summary ---
Author Organization [facility] Address [address] [place] [address] Care Team Providers Care Ballast Inspector Name Role Phone Karen Kowalski MD Primary Care Provider [phone] Encounter Details Date Type Department Care Team (Late st Contact Info) Description 09/26/2001 Outpatient Historical [facility] Family Medicine [address] [address] Jhonatan Azul, DO [address] [address] Social History Tobacco Use Types Packs/Day Years Used Date Smoking Tobacco: Never Assessed Comments Unknown Sex and Gender Information Value Date Recorded Sex Assigned at Not on file Legal Sex Female 3:18 AM SORT WORKER Gender Identity Not on file Sexual Orientation Not on file documented as of this encounter Plan of Treatment Not on file documented as of this encounter Visit Diagnoses Not on filedocumented in this encounter Additional Health Concerns Infection Onset Date Last Indicated Resolved Time R/O COVID-19 07/14/2020 07/14/2020 07/15/2020 2:16 AM CDT documented as of this encounter Care Teams Ballast Inspector Relationship Specialty Start Date End Date Karen Kowalski MD PCP - General Family Practice 09/11/18 05/30/22 documented as of this encounter
--- OUTSIDE RECORDS SUMMARY | 2025-09-15 10:33 | XMS_ITS | Encounter Summary ---
Author Organization [facility] Address [address] [place] [address] Care Team Providers Care Guest Relations Agent Name Role Phone Karen Kowalski MD Primary Care Provider Encounter Details Date Type Department Care Team (Late st Contact Info) Description 12/28/2001 Outpatient Historical [facility] Family Medicine [address] [place] [address] Jhonatan Azul, DO [address] [address] Social History Tobacco Use Types Packs/Day Years Used Date Smoking Tobacco: Never Assessed Comments Unknown Sex and Gender Information Value Date Recorded Sex Assigned at Not on file Legal Sex Female 3:18 AM LIBERAL ARTS DEAN Gender Identity Not on file Sexual Orientation Not on file documented as of this encounter Plan of Treatment Not on file documented as of this encounter Visit Diagnoses Not on filedocumented in this encounter Additional Health Concerns Infection Onset Date Last Indicated Resolved Time R/O COVID-19 07/14/2020 07/14/2020 07/15/2020 2:16 AM CDT documented as of this encounter Care Teams Guest Relations Agent Relationship Specialty Start Date End Date Karen Kowalski MD PCP - General Family Practice 09/11/18 05/30/22 documented as of this encounter
--- OUTSIDE RECORDS SUMMARY | 2025-09-15 10:33 | XMS_ITS | Encounter Summary ---
Author Organization [facility] Address [address] [place] [address] Care Team Providers Care Janitor Custodian Name Role Phone Karen Kowalski MD Primary Care Provider [phone] Encounter Details Date Type Department Care Team (Late st Contact Info) Description 03/09/2002 Outpatient Historical [facility] Family Medicine [address] [place] [address] Jhonatan Azul, DO [address] [address] Social History Tobacco Use Types Packs/Day Years Used Date Smoking Tobacco: Never Assessed Comments Unknown Sex and Gender Information Value Date Recorded Sex Assigned at Not on file Legal Sex Female 3:18 AM BUTTERMAKER Gender Identity Not on file Sexual Orientation Not on file documented as of this encounter Plan of Treatment Not on file documented as of this encounter Visit Diagnoses Not on filedocumented in this encounter Additional Health Concerns Infection Onset Date Last Indicated Resolved Time R/O COVID-19 07/14/2020 07/14/2020 07/15/2020 2:16 AM CDT documented as of this encounter Care Teams Janitor Custodian Relationship Specialty Start Date End Date Karen Kowalski MD PCP - General Family Practice 09/11/18 05/30/22 documented as of this encounter
--- OUTSIDE RECORDS SUMMARY | 2025-09-15 10:33 | XMS_ITS | Encounter Summary ---
Author Organization [facility] Address [address] [place] [address] Care Team Providers Care Do All Operator Name Role Phone Karen Kowalski MD Primary Care Provider [phone] Encounter Details Date Type Department Care Team (Late st Contact Info) Description 11/20/2002 Outpatient Historical [facility] Medicine [address] [address] Nishant Whitney Social History Tobacco Use Types Packs/Day Years Used Date Smoking Tobacco: Never Assessed Comments Unknown Sex and Gender Information Value Date Recorded Sex Assigned at Not on file Legal Sex Female 3:18 AM LIBRARY ATTENDANT Gender Identity Not on file Sexual Orientation Not on file documented as of this encounter Plan of Treatment Not on file documented as of this encounter Visit Diagnoses Not on filedocumented in this encounter Additional Health Concerns Infection Onset Date Last Indicated Resolved Time R/O COVID-19 07/14/2020 07/14/2020 07/15/2020 2:16 AM CDT documented as of this encounter Care Teams Do All Operator Relationship Specialty Start Date End Date Karen Kowalski MD PCP - General Family Practice 09/11/18 05/30/22 documented as of this encounter
--- OUTSIDE RECORDS SUMMARY | 2025-09-15 10:33 | XMS_ITS | Encounter Summary ---
Author Organization [facility] Address [address] [place] [address] Care Team Providers Care Interior Decorator Paperhanging Name Role Phone Karen Kowalski MD Primary Care Provider [phone] Encounter Details Date Type Department Care Team (Late st Contact Info) Description 02/14/2003 Outpatient Historical [facility] Family Medicine [address] [place] [address] Jhonatan Azul, DO [address] [address] Social History Tobacco Use Types Packs/Day Years Used Date Smoking Tobacco: Never Assessed Comments Unknown Sex and Gender Information Value Date Recorded Sex Assigned at Not on file Legal Sex Female 3:18 AM QUALITY ASSURANCE COORDINATOR Gender Identity Not on file Sexual Orientation Not on file documented as of this encounter Plan of Treatment Not on file documented as of this encounter Visit Diagnoses Not on filedocumented in this encounter Additional Health Concerns Infection Onset Date Last Indicated Resolved Time R/O COVID-19 07/14/2020 07/14/2020 07/15/2020 2:16 AM CDT documented as of this encounter Care Teams Interior Decorator Paperhanging Relationship Specialty Start Date End Date Karen Kowalski MD PCP - General Family Practice 09/11/18 05/30/22 documented as of this encounter
== END 2025-09-15 09:45 | disposition home or self-care (01) ==
LOC: ANHIMG 09:46
PROVIDERS: PCP Family Medicine; Visit Provider Nurse Practitioner Family
DX: Z12.2 Encounter for screening for malignant neoplasm of respiratory organs (principal); Z87.891 Personal history of nicotine dependence
CPT/HCPCS: 71271